=== PATIENT | male | born 1945 | race Caucasian/White ===

== ENCOUNTER 2020-03-12 08:46 | Emergency (ER) | payer OTHER, MEDICARE, SELFPAY ==
[2020-03-12 09:02] VITALS: BP 195/93; PULSE 72; RESP 20; TEMP 36.2; O2SAT 95; BMI 36.6
--- NOTE | 2020-03-12 09:28 | XRR_ITS ---
PROCEDURE INFORMATION: Exam: XR Right Foot Complete Exam date and time: 03/12/2020 9:29 AM Age: 74 years old Clinical indication: Pain; Foot; Right; Additional info: Toe infection TECHNIQUE: Imaging protocol: XR Right foot. Views: 3 or more views. COMPARISON: No relevant prior studies available. FINDINGS: Bones/joints: No evidence of fracture or aggressive osseous lesion. Normal alignment. Soft tissues: Apparent diffuse soft tissue swelling of the 3rd toe. XR/XR foot RT min 3V* [id number] IMPRESSION: Apparent soft tissue swelling of the 3rd toe. No radiographic evidence of osteomyelitis.
[2020-03-12 10:11] VITALS: BP 149/83; PULSE 60; RESP 17; O2SAT 96
[2020-03-12 10:18] LABS: Basophils % 0.7 %; Eosinophils # 0.1 10^3/uL (0.0-0.8); Eosinophils % 1.5 %; Hemoglobin 13.2 g/dL (11.7-16.6); Lymphocytes # 0.6 10^3/uL (0.8-4.8); Lymphocytes % 11.5 %; Mean Corpuscular HGB Conc 33.8 g/dL (30.0-36.0); Mean Corpuscular Hemoglobin 29.1 pg (28.0-34.0); Mean Corpuscular Volume 85.9 fL (80-94); Mean Platelet Volume 9.4 fL (7.4-10.4); Monocytes # 0.5 10^3/uL (0.2-0.9); Monocytes % 9.9 %; Neutrophils # 4.09 10^3/uL (1.8-7.7); Neutrophils % 76.2 %; Nucleated Red Blood Cells % 0 %; Platelet Count 185 10^3/cmm (130-400); Red Blood Count 4.54 10^6/uL (4.1-5.3); Red Cell Distribution Width 12.7 % (12.1-15.1); White Blood Count 5.4 10^3/uL (4.0-10.0)
[2020-03-12 10:37] LABS: Alanine Aminotransferase 18 U/L (0-41); Albumin Level 4.2 g/dL (3.5-5.2); Alkaline Phosphatase 88 IU/L (40-130); Anion Gap 14.4 (5-19); Aspartate Amino Transferase 26 U/L (0-40); Blood Urea Nitrogen 14 mg/dL (8-23); Calcium 9.4 mg/dL (8.5-10.5); Carbon Dioxide 28 mmol/L (22-29); Chloride 99 mmol/L (98-107); Creatinine Clr Calc Pharmacy 112.7997; Glucose 215 mg/dL (65-115); Osmolality Calculated 293 mOsm/kg (285-295); Potassium 3.4 mmol/L (3.5-5.1); Sodium 138 mmol/L (136-145); Total Bilirubin 0.6 mg/dL (0.15-1.2); Total Protein 7.2 g/dL (6.6-8.7)
[2020-03-12 11:04] LABS: C Reactive Protein 5.7 mg/L (0.0-4.9)
--- NOTE | 2020-03-12 11:10 | PC.NURSE ---
REPORT RECEIVED FROM [facility].
[2020-03-12] MEDS: clindamycin 150 mg Capsule 300 MG PO (12:33)
[2020-03-12 12:45] VITALS: BP 163/88; PULSE 60; RESP 16; O2SAT 94
--- NOTE | 2020-03-14 12:16 | DCPLANNER ---
home health manager had message to schedule a follow up appointment for patient with Wound Care. home health manager called the Wound Care clinic, spoke with Noemi, a follow up appointment is scheduled for Saturday, March 16, 2020 at 2:00 with SARAH Diez. home health manager called patient and gave patient appointment information, patient stated that he would attend the appointment.
--- NOTE | 2020-03-14 13:08 | W.ED.WOUNDLC ---
HPI - Wound/Laceration General: Chief Complaint: Wound/Laceration Stated Complaint: RED TOE WITH WOUND/DIABETIC Time Seen by Provider: 03/12/20 09:04 History of Present Illness: HPI narrative: This patient is a 74-year-old male who presents today with toe pain and swelling. He noted a sore on the bottom of his toe just a day or 2 ago and now the whole toe is red and swollen. He feels okay otherwise he has not had a fever. He is never had any diabetic foot ulcers in the past. Onset (ago): day(s) (1) Associated symptoms: Denies chills, fever(s), nausea or vomiting Review of Systems General: Reports: 10 or more systems reviewed and unremarkable except in HPI and below Const: Denies: fever(s), chills, fatigue or malaise Eyes: Denies: change in vision ENMT: Denies: odynophagia Card: Denies: chest pain or swelling of feet/ankles Resp: Denies: dyspnea, productive cough or non-productive cough GI: Denies: abdominal pain, nausea or vomiting : Denies: flank pain Musc: Denies: neck pain or back pain Skin/Breast: Reports: skin pain, skin swelling and sores; Denies: rash Neuro: Denies: headache(s), numbness in extremities or weakness in extremities [place]/Lymph: Denies: easy bruising or easy bleeding Physical Exam Const: COMMON NORMALS: no acute distress, patient oriented x3, no limitations and alert GENERAL APPEARANCE: cooperative and comfortable HENMT: HEAD & SCALP: normal to inspection FACE & SINUS: normal facial exam Eye: GENERAL EYE: appearance normal, both eyes and all related structures Neck/C-Spine: COMMON NORMALS: supple, no meningeal signs and no JVD Chest: COMMONS NORMALS: normal inspection of the chest Resp: COMMON NORMALS: normal respiratory effort, No use of accessory muscles and clear to auscultation bilaterally AUSCULTATION: clear to auscultation bilaterally Cardio: COMMON NORMALS: no JVD, regular rate, regular rhythm and No murmurs present (Cardio) RATE: regular rate RHYTHM: regular rhythm GI: COMMON NORMALS: Normal to inspection, nondistended, normoactive bowel sounds present, Soft to palpation and non-tender INSPECTION: Yes normal to inspection AUSCULTATION: Yes normoactive bowel sounds PALPATION: Yes Soft to palpation Back/Pelvis: COMMON NORMALS: thoracic and lumbar spine normal to inspection Extremity: GENERAL: Yes normal exam except as noted RIGHT LOWER EXTREMITY: Yes foot & digits (Toe with a sore on the bottom and the entire toe is hot and red and swollen. Tender to palpation.) Neuro: COMMON NORMALS: patient oriented x3, moves all extremities, no focal motor deficits and no sensory deficits noted SENSORIUM/ORIENTATION: Yes alert MENINGEAL SIGNS: Yes no meningeal signs Psych: COMMON NORMALS: mental status grossly normal, cooperative and normal affect Skin: COMMON NORMALS: no rashes or lesions noted and turgor normal GENERAL SKIN EXAM: no rashes or lesions noted and turgor normal Course ED course: Labs are not significantly abnormal. We discussed the importance of sugar control. We discussed the option of admission. He would like to go home and I think that is reasonable as he has not even tried outpatient therapy yet. I put him on oral dose of clindamycin, gave follow-up with the wound clinic and he will return if he is worsening in any way. Vital Signs: Vital signs: Vital Signs Temperature 97.2 F L 03/12/20 09:02 Pulse Rate 60 03/12/20 12:45 Respiratory Rate 16 03/12/20 12:45 Blood Pressure 163/88 03/12/20 12:45 Pulse Oximetry 94 03/12/20 12:45 MDM - Wound/Laceration Lab Data: Labs: Lab Results 03/12/20 03/12/20 Range/Units 10:00 10:00 WBC 5.4 (4.0-10.0) 10^3/ uL RBC 4.54 (4.1-5.3) 10^6/u L Hgb 13.2 (11.7-16.6) g/dL Hct 39.0 L (42.0-52.0) % MCV 85.9 (80-94) fL MCH 29.1 (28.0-34.0) pg MCHC 33.8 (30.0-36.0) g/dL RDW 12.7 (12.1-15.1) % Plt Count 185 (130-400) 10^3/c mm MPV 9.4 (7.4-10.4) fL Neut % (Auto) 76.2 % Lymph % (Auto) 11.5 % [place] % (Auto) 9.9 % Eos % (Auto) 1.5 % Baso % (Auto) 0.7 % Neut # (Auto) 4.09 (1.8-7.7) 10^3/u L Lymph # (Auto) 0.6 L (0.8-4.8) 10^3/u L [place] # (Auto) 0.5 (0.2-0.9) 10^3/u L Eos # (Auto) 0.1 (0.0-0.8) 10^3/u L Baso # (Auto) 0.0 (0.0-0.1) 10^3/u L Nucleated RBC % (a uto) 0 % Nucleated RBCs # 0.0 /100WBC Sodium 138 (136-145) mmol/L Potassium 3.4 L (3.5-5.1) mmol/L Chloride 99 (98-107) mmol/L Carbon Dioxide 28 (22-29) mmol/L Anion Gap 14.4 (5-19) BUN 14 (8-23) mg/dL Creatinine 0.7 (0.7-1.2) mg/dL GFR Calculation Not Reportable Glucose 215 H (65-115) mg/dL Calculated Osmolal ity 293 (285-295) mOsm/k g Calcium 9.4 (8.5-10.5) mg/dL Total Bilirubin 0.6 (0.15-1.2) mg/dL AST 26 (0-40) U/L ALT 18 (0-41) U/L Alkaline Phosphata se 88 (40-130) IU/L C-Reactive Protein 5.7 H (0.0-4.9) mg/L Total Protein 7.2 (6.6-8.7) g/dL Albumin 4.2 (3.5-5.2) g/dL Globulin 3.0 (1.3-4.6) g/dL Discharge Plan Discharge Patient Disposition: Home Clinical Impression: Cellulitis of toe Qualifiers: Laterality: right Qualified Code(s): L03.031 - Cellulitis of right toe Diabetic ulcer of toe Qualifiers: Diabetes mellitus type: type 2 Laterality: right Non-pressure ulcer stage: unspecified non-pressure ulcer stage Qualified Code(s): E11.621 - Type 2 diabetes mellitus with foot ulcer Condition: Stable Prescriptions: New clindamycin HCl 150 mg capsule 300 mg PO Q8H 10 Days Qty: 120 RF: 0 No Action Multiple Vitamins Tablet 1 tab PO DAILY RF: 0 atorvastatin 20 mg Tablet 20 mg PO QPM RF: 0 ketoconazole 2 % Shampoo See Rx Instructions .ROUTE .COMPLEX RF: 0 Mobic 15 mg Tablet 15 mg PO DAILY PRN (Reason: Pain) RF: 0 glipizide 10 mg Tablet 10 mg PO BID RF: 0 potassium chloride 10 mEq Tablet Extended Release 10 meq PO DAILY RF: 0 chlorthalidone 25 mg Tablet 25 mg PO DAILY RF: 0 aspirin 81 mg Tablet,Delayed Release (Dr/Ec) 81 mg PO DAILY RF: 0 triamcinolone acetonide 0.1 % Cream 1 applic TOPICAL PRN RF: 0 carvedilol 3.125 mg Tablet 3.125 mg PO BID RF: 0 trazodone 100 mg Tablet 100 mg PO BEDTIME PRN (Reason: Sleep) RF: 0 Norvasc 10 mg Tablet 10 mg PO DAILY RF: 0 metformin 1,000 mg Tablet See Rx Instructions .ROUTE .COMPLEX RF: 0 gabapentin 300 mg Capsule 600 mg PO TID RF: 0 magnesium citrate Solution See Rx Instructions .ROUTE .COMPLEX RF: 0 losartan 100 mg Tablet 100 mg PO DAILY RF: 0 fiber Powder See Rx Instructions .ROUTE .COMPLEX RF: 0 Fish Oil 1,000 mg (120 mg-180 mg) Capsule 1 cap PO DAILY RF: 0 alogliptin 25 mg Tablet 25 mg PO DAILY RF: 0 docusate sodium See Rx Instructions .ROUTE .COMPLEX RF: 0 Discharge Orders: Discharge Order (Routine); Ordered 03/12/20 Ordered By: Penelope Miguel Referrals: WOUND CARE CLINIC, [Staff Physician] - 1-3 days Discharge Diet: Usual diet Discharge Activity: Resume usual activity Patient Instructions: Cellulitis (ED) Activity Restrictions/Additional Instructions: Take the antibiotics as prescribed. Control your blood sugar well as high blood sugars contribute to difficult to treat infections. Make sure to take your medications regularly and to check your blood sugars. Also watch your diet. Follow-up with the wound care clinic on Saturday or Saturday. Discharge Date/Time: 03/12/20 12:47 Coding Level of Care Code ED Camp Dining Room Attendant for Ellen Logan
--- NOTE | 2020-04-04 09:36 | DCPLANNER ---
Patient had a follow up appointment scheduled for 03.16.20 with Wound Care - patient did not attend appointment.
== END 2020-03-12 12:47 | disposition home or self-care (01) ==
PROVIDERS: Emergency Provider Emergency Medicine
DX: L03.031 Cellulitis of right toe (principal); E11.621 Type 2 diabetes mellitus with foot ulcer; Z79.82 Long term (current) use of aspirin; Z79.84 Long term (current) use of oral hypoglycemic drugs
CPT/HCPCS: 12345; 36415; 73630; 80053; 85025; 86140; 99283

== ENCOUNTER → 2020-07-12 13:56 | Outpatient (BNVA) | payer OTHER, SELFPAY | PROVIDERS: Visit Provider Orthopaedic Surgery | DX: M54.5 Low back pain (principal) | CPT/HCPCS: 72114 ==

== ENCOUNTER → 2020-08-04 | Day surgery (SDC) | payer MEDICARE, OTHER, SELFPAY | PROVIDERS: Visit Provider Orthopaedic Surgery | DX: M48.062 Spinal stenosis, lumbar region with neurogenic claudication (principal); Z01.818 Encounter for other preprocedural examination | CPT/HCPCS: 93005 ==

== ENCOUNTER 2020-08-10 10:44 | Inpatient (IN) | payer MEDICARE, OTHER, SELFPAY ==
[2020-08-04 09:48] VITALS: BMI 37.3
--- NOTE | 2020-08-04 10:13 | ECG_ITS ---
[facility] Test Date: 2020-08-04 Pat Name: Morales Pendleton Department: Room: Gender: Male Emergency Room Technician: : 1945 Requested By: Pee Cannon Order Number: [id number] Benny MD: Caesar Grover M.D. Measurements Intervals [place] Rate: 54 P: 41 DE: 221 QRS: 9 QRSD: 122 T: 42 QT: 443 QTc: 423 Interpretive Statements SINUS BRADYCARDIA WITH FIRST DEGREE AV BLOCK MODERATE INTRAVENTRICULAR CONDUCTION DELAY [110+ ms QRS DURATION] No previous ECG available for comparison Electronically Signed On 08-04-2020 16:06:18 HUMAN RESOURCES OFFICER by Caesar Grover M.D. [id number]
--- NOTE | 2020-08-04 16:57 | ANES.PREANE2 ---
Pre-Anesthetic Assessment Pre-Anesthetic Assessment: Height/Weight: Height 1.83 m Weight 124.738 kg Preop Diagnosis: lumbar stenosis Proposed Procedure: Operation Date: 08/10/20 07:00 Proposed Procedures p PLIF L3/4 L4/5 04825, 28123, 02924, 39520, 04951, 39789 M48.062(Not Applicable) - Sawyer Rock, DO Was Beta Keo taken within 24 hours: Yes Social: Social History: No alcohol and No tobacco Exam: Pre-Anes Outpt Exam: alert, oriented x 3, clear to auscultation bilaterally and regular rate & rhythm Airway: Submandibular: WNL Cervical ROM: WNL MP: 2 Additional comments: Poor dentition, large yeh CV/HEM: CV/HEM: CAD and HTN Metabolic: Metabolic: DM Musc/skel: Musc/skel: Lower Back Pain and OA/DJD Anesthetic Plan: ASA status: 3 Anesthesia: General Risk of > 500 ml blood loss (7ml/kg in children): No PFSH Anesthesia PFSH: Social History (Updated 07/12/20 @ 14:14 by Fiona Rodriguez LPN) Smoking and tobacco status: never smoked Alcohol intake: never Data Anesthesia Cardiac Studies: No Data to Display
[2020-08-05 18:43] LABS: Coronavirus Test Green County Not Detected
[2020-08-10] VITALS (21 sets, daily range): BP systolic 133–179; BP diastolic 67–98; PULSE 68–95; RESP 15–24; TEMP 36.3–37.2; O2SAT 90–96
--- NOTE | 2020-08-10 | XR_ITS ---
WS: [id number] C-ARM RADIOGRAPHS LUMBAR SPINE; 4 IMAGES HISTORY: PLIF L3/L4 L4/L5 COMPARISON: MRI 05/03/2020. Status post posterior lumbar fusion extending from L3 to L5. Interbody spacers at L3-4 and L4-5. XR/XR lumbar spine 2-3V* [id number] IMPRESSION: Intraoperative imaging during posterior lumbar fusion.
--- NOTE | 2020-08-10 | SCC_ITS ---
Procedure Done: 1. L4/5 Interbody fusion with posterolateral fusion 2. L3/4 Interbody fusion with posterolateral fusion 3. Instrumentation L3-L5 4. Cage at L4/5 5. Cage L3/4 6. Laminectomy L4 for decomprsion of nerve 7. Lamincetomy of L3 for decomprsion of nerve 8. use of autograft from same incision 9. allograft 10. Bone marrow aspirate from iliac crest from separate incision 11. Spondylolisthesis reduction L4/5 118.7 seconds of fluoroscopic guidance, for a cumulative dose of 121.32 mGy, was provided to Dr. Rock by the radiology department. C-arm images of the lumbar spine were saved for the patient's permanent record. [facility]
[2020-08-10] MEDS: sodium chloride 0.9% 1,000 ML 30 ML IV (06:39)
[2020-08-10 06:41] LABS: Glucose Point of Care 210 mg/dL (70-110)
--- NOTE | 2020-08-10 06:54 | W.PM.OPSUD ---
Surgery/Procedure H&P Update DATE OF PROCEDURE: August 10, 2020 DATE H&P PERFORMED: 07/12/20 H&P UPDATE INFORMATION: I have reviewed H&P completed within last 30 days, I have examined patient prior to procedure and No changes to prior documentation PREOP DIAGNOSIS: lumbar stenosis PLANNED PROCEDURE: Operation Date: 08/10/20 07:00 Proposed Procedures p PLIF L3/4 L4/5 01185, 45048, 68873, 81926, 57828, 58010 M48.062(Not Applicable) - Sawyer Rock DO
[2020-08-10] MEDS: insulin regular-human 100 units/1 mL 10 UNIT IVP (06:59)
[2020-08-10] MEDS: heparin, porcine 1,000 unit/mL INJ 10 mL 10000 UNIT XX (08:01)
--- NOTE | 2020-08-10 08:10 | P.ANESUD_ITS ---
Pre-Anesthetic Update Pre-Anesthetic Assessment: Date of Surgery/Procedure: 08/10/20 Preop Edna gnosis: lumbar stenosis Proposed Procedure: Operation Date: 08/10/20 07:00 Proposed Procedures p PLIF L3/4 L4/5 86276, 31792, 34862, 40080, 33256, 11500 M48.062(Not Applicable) - Sawyer Rock, DO Any changes to Pre-Anesthetic Assessment?: No Last Intake: Intake Last Liquid Date 08/09/20 Last Liquid Time 18:00 Last Solid Date 08/09/20 Last Solid Time 18:00 Labs Last 48hrs: Laboratory Results - last 48 hr 08/10/20 06:37 POC Glucose 210 H Vitals: Temperature 98.9 F 08/10/20 06:19 Temperature Source Temporal Artery S can 08/10/20 06:19 Pulse Rate 78 08/10/20 06:19 Pulse Rhythm 08/10/20 06:19 Pulse Strength 3+ Normal 08/10/20 06:19 Respiratory Rate 18 08/10/20 06:19 Blood Pressure 177/88 08/10/20 06:19 Blood Pressure Alexia n 117 08/10/20 06:19 Pulse Oximetry 94 08/10/20 06:19 Oxygen Delivery Me thod 08/10/20 06:19 Exam: Pre-Anes Outpt Exam: alert, oriented x 3, clear to auscultation bilaterally and regular rate & rhythm Cardiac Studies: No Data to Display
[2020-08-10] MEDS: vancomycin 1,000 MG SDV 1000 MG XX (10:45)
--- NOTE | 2020-08-10 11:31 | SUR.PHASEI ---
PT AWAKES AND ORAL AIRWAY OUT PT DENIES PAIN AND NAUSEA, GOOD RESP EFFORT PT SX WITH YANKER AND ENCOURAGED TO COUGH AND DEEP BREATH OCC. SATS 92% ON 8LMASK PT ABLE TO MOVE BILAT FEET TO COMMAND,
--- NOTE | 2020-08-10 11:38 | P.OP_ITS ---
Operative Report Date of procedure: August 10, 2020 Pre-op Diagnosis: lumbar stenosis L3/4, L4/5 Post-op diagnosis: same Procedure Done: 1. L4/5 Interbody fusion with posterolateral fusion 2. L3/4 Interbody fusion with posterolateral fusion 3. Instrumentation L3-L5 4. Cage at L4/5 5. Cage L3/4 6. Laminectomy L4 for decomprsion of nerve 7. Lamincetomy of L3 for decomprsion of nerve 8. use of autograft from same incision 9. allograft 10. Bone marrow aspirate from iliac crest from separate incision 11. Spondylolisthesis reduction L4/5 Procedure: 1. L4/5 Interbody fusion with posterolateral fusion 2. L3/4 Interbody fusion with posterolateral fusion 3. Instrumentation L3-L5 4. Cage at L4/5 5. Cage L3/4 6. Laminectomy L4 for decomprsion of nerve 7. Lamincetomy of L3 for decomprsion of nerve 8. use of autograft from same incision 9. allograft 10. Bone marrow aspirate from iliac crest from separate incision 11. L4/5 spondylolisthesis reduction Patient is brought to the operative suite. After undergoing anesthesia, the patient had neuro monitoring attached. Patient was then placed in the prone position on the Arnaldo table. All areas of impingement were well-padded. P atient was then prepped and draped in the normal sterile fashion. Skin incision was then made over the L3-L5 space. Subperiosteal dissection was made out to the transverse processes of L3 and L5. Once the exposure was complete attention was then brought to placing the pedicle screws. Prior to placing the pedicle screws the [place] bone marrow aspirate kit was used to aspirate bone marrow aspirate. This was done by using the sharp probe to open up the bone. This was done by making an incision through the fascia of the iliac crest. Aspiration was performed and then the blunt probe was then used to dissect down to through the bone tunnel. An aspirating well drawn back a millimeter approximately 20 cc of bone marrow aspirate was used. Admixed with the allograft and autograft bone that will be used. The technique for placing the pedicle screws was to use a drill followed by the gearshift probe. Followed by the ball probe to feel the superior inferior medial lateral ponce of the pedicles. Then placement of the screws. Was done at each pedicle. Screws were placed at L3 bilaterally and L4 and L5 Bilateraly. Microscope was brought in. Next attention was brought to performing the laminectomy of L3. This was done using the high-speed bur, Kerrisons and curettes. Once the lamina was removed and then attention was brought to performing a partial facetectomy on the contr alateral side. This was done again using the high-speed bur curettes and Kerrisons. The ligamentum flavum was taken down bilaterally from L3 to L4. Attention was then brought to the facet on the ipsilateral side. The facet was taken down. The L4 nerve was decompressed as it passed around the L4 pedicle. The laminectomy was done for purposes of decompressing the nerve as well as placement of the cage. The L3 nerve was identified as it traversed through the L3/4 foramen. The thecal sac was identified and retracted. The L3/4 disc space was identified. Using a knife the disc base was opened. And then sequential carmen were placed. The first shaver was a 6 and the last shaver was a 8. Using a pituitary and down going curette the endplates were scraped and disc material was removed from the space. Once adequate decompression of the disc space was felt to be had. Osteoamp sponge was packed into the anterior aspect of the disc spacee. Then a size 8 cage from Sathish was placed after packing osteoamp into the cage. While placing the cage the thecal sac and L4 nerve was protected. C arm was used to ensure that the cages placed in the appropriate position. Next attention was brought to performing the laminectomy of L4. This was done using the high-speed bur, Kerrisons and curettes. Once the lamina was removed and then attention was brought to performing a partial facetectomy on the contralateral side. This was done again using the high-speed bur curettes and Kerrisons. The ligamentum flavum was taken down bilaterally from L4 to L5. Attention was then brought to the facet on the ipsilateral side. The facet was taken down. The L5 nerve was decompressed as it passed around the L5 pedicle. The laminectomy was done for purposes of decompressing the nerve as well as placement of the cage. The L3 nerve was identified as it traversed through the L3/4 foramen. The thecal sac was identified and retracted. The L4/5 disc space was identified. Using a knife the disc base was opened. And then sequential carmen were placed. The first shaver was a 6 and the last shaver was a 8. Using a pituitary and down going curette the endplates were scraped and disc material was removed from the space. Once adequate decompression of the disc space was felt to be had. Osteoamp sponge was packed into the anterior aspect of the disc spacee. Then a size 8 cage from Sathish was placed after packing osteoamp into the cage. While placing the cage the thecal sac and L5 nerve was protected. C arm was used to ensure that the cages placed in the appropriate position. Attention was then brought to attaching the rods to the screws placed in the L3- 5 bilaterally. Caps were torqued into position. Locking the construct in place. The L4/5 Spondylolisthisis was reduced using the tower reduction tool. Wound was copiously irrigated and then attention was brought to decorticating the facets and transverse processes laterally. Bone that was taken down from the la jermaine was used along with osteoamp fibers and sponges were packed into the lateral gutters along the facet joints. This was done bilaterally. Wound was then closed in a layered fashion starting with the thoracolumbar fascia. 0-stratafix was used the sub cutaneous tissue was closed with 2-0 stratafix and skin with 3-0 nylon. a steril dressing was applied. Patient was then placed in the supine position. The endotracheal tube was removed and patient was transferred to the PACU in stable condition.
[2020-08-10] MEDS: morphine 4 mg/mL SDV 1 mL 2 MG IVP (11:47)
[2020-08-10] MEDS: metformin 500 mg Tablet PO ×2 (13:07→17:19)
[2020-08-10] MEDS: lactated ringers 1,000 ML 90 ML IV (13:07)
[2020-08-10] MEDS: HYDROcodone-acetaminophen 5-325 mg Tablet PO ×3 (13:51→22:17)
--- NOTE | 2020-08-10 14:01 | PC.NURSE ---
Pt received from PACU, vs stable. swelling noted to bilateral eyes and slight numbness/tingling and ring finger and pinky finger to R hand due to positioning in OR. Pt has hospital bed, walker, cane and cpap at home for medical equipment. dressing to lower back c/d/i, abd binder in place at this time. pt resting in bed at this time call light within reach.
[2020-08-10] MEDS: gabapentin 300 mg Capsule 600 MG PO ×2 (14:48→21:17)
--- NOTE | 2020-08-10 16:08 | P.CONIM_ITS ---
Providers/Reason For Consult Consulting Physican/Specialty*: Shaggy Garza hospitalist Reason for Consult*: Medical management Attending Physician: Sawyer Rock DO History of Present Illness History of Present Illness Morales Pendleton is a 74 year old male with lumbar stenosis who underwent L3/4 and L4/5 fusion with instrumentation, cage and laminectomy. He has been having low back pain for quite some time. Review of Systems General: Reports: 10 or more systems reviewed and unremarkable except in HPI and below Const: Denies: fever(s) or chills Eyes: Denies: change in vision ENMT: Denies: throat pain Card: Denies: chest pain Resp: Denies: dyspnea GI: Denies: abdominal pain : Denies: flank pain Musc: Reports: back pain Skin/Breast: Denies: rash Neuro: Denies: headache(s) Psych: Denies: anxiety Endo: Denies: polyuria [place]/Lymph: Denies: easy bruising All/Imm: Denies: urticaria Meds/Allergies Home Medications and Allergies Home Medications Medication Instructions Recorded Confirmed Last Taken Type alogliptin 25 mg PO DAILY 03/12/20 08/10/20 08/09/20 History amlodipine [Norvasc] 10 mg PO DAILY 03/12/20 08/04/20 08/10/20 04:45 History aspirin 81 mg PO DAILY 03/12/20 08/04/20 08/05/20 History atorvastatin 20 mg PO QPM 03/12/20 08/04/20 08/09/20 History chlorthalidone 25 mg PO DAILY 03/12/20 08/04/20 08/10/20 04:45 History gabapentin 600 mg PO TID 03/12/20 08/04/20 08/09/20 History glipizide 10 mg PO BID 03/12/20 08/04/20 08/09/20 18:00 History ketoconazole See Rx Instructions .ROUTE .COMPLEX 03/12/20 08/04/20 08/09/20 History losartan 100 mg PO DAILY 03/12/20 08/04/20 08/09/20 History meloxicam [Mobic] 15 mg PO DAILY PRN 03/12/20 08/04/20 08/05/20 History metformin See Rx Instructions .ROUTE .COMPLEX 03/12/20 08/04/20 08/09/20 18:00 History multivitamin [Multiple Vitamins] 1 tab PO DAILY 03/12/20 08/04/20 08/09/20 History omega 0-tqz-xlx-fish oil [Fish Oil] 1 cap PO DAILY 03/12/20 08/04/20 08/05/20 History potassium chloride 10 meq PO DAILY 03/12/20 08/04/20 08/09/20 History trazodone 100 mg PO BEDTIME PRN 03/12/20 08/04/20 08/09/20 History triamcinolone acetonide 1 applic TOPICAL PRN 03/12/20 08/10/20 08/07/20 History carvedilol 6.25 mg PO BID 08/04/20 08/04/20 08/10/20 04:45 History Allergies Allergy/AdvReac Type Severity Reaction Status Date / Time No Known Allergies Allergy Verified 08/04/20 09:36 Current Medications Current Medications Generic Name Dose Route Start Last Admin Trade Name Freq PRN Reason Stop Dose Admin Hydrocodone Bitart/Acetaminophen 1 - 2 tab 08/10/20 11:28 08/10/20 13:51 Hydrocodone-Acetaminophen 5-325 Mg Tablet PO 2 tab Q4H PRN Administration MODERATE TO SEVERE PAIN Gabapentin 600 mg 08/10/20 15:00 08/10/20 14:48 Gabapentin 300 Mg Capsule PO 600 mg TID BUNNY Administration Lactated Ringer's 1,000 mls @ 90 mls/hr 08/10/20 11:30 08/10/20 13:07 Lactated Ringers IV 90 mls/hr .Q11H7M BUNNY Administration Cefazolin Sodium/Dextrose 2 gm in 50 mls @ 100 mls/hr 08/10/20 15:00 08/10/20 15:41 Kefzol IV 08/11/20 07:29 Infused Q8H BUNNY Infusion Protocol Metformin HCl 0 mg 08/10/20 12:15 08/10/20 13:07 Metformin 500 Mg Tablet PO 500 mg TIDWM BUNNY Administration PFSH Acute PFSH: Medical History (Updated 08/10/20 @ 16:24 by Shaggy Garza MD) Chronic back pain Diabetes mellitus Hyperlipidemia Hypertension Peripheral neuropathy Surgical History (Updated 08/10/20 @ 16:20 by Shaggy Garza MD) History of surgical removal of pilonidal cyst Hx of appendectomy Hx of melanoma excision Family History (Updated 08/10/20 @ 16:20 by Shaggy Garza MD) Other Cancer Social History (Updated 08/10/20 @ 16:20 by Shaggy Garza MD) Smoking and tobacco status: never smoked Alcohol intake: former Vitals/I&O/Wt Last Vital Signs Temp 98.0 F 08/10/20 13:30 Pulse 68 08/10/20 15:00 Resp 18 08/10/20 15:00 BP 167/77 08/10/20 13:30 Pulse Ox 94 08/10/20 15:00 08/10/20 08/10/20 08/10/20 06:59 14:59 22:59 Intake Total 1050 / 1050 50 / 1100 Output Total 350 / 350 Balance 700 / 700 50 / 750 Physical Exam Narrative: EXAM NARRATIVE: General exam is a white male in no apparent distress HEENT: Atraumatic normocephalic. Pupils equally round. Oropharynx clear. Neck is supple no lymphadenopathy or thyromegaly Cardiovascular regular in rhythm without murmur. No S3 or S4 Lungs are clear no wheezing or crackles Abdomen is soft nontender with positive bowel sounds. Binder is noted Back demonstrated dressing deferred Extremities no cyanosis clubbing or edema, cap refill brisk. No foot drop. Neurologic: No obvious focal deficits Skin no rash Urinary Catheter Management^: Teague: Cath Placed During This Visit: yes, but has since been removed by the nurse Urinary Catheter Date of Insertion: 08/10/20 Urinary Catheter Time of Insertion: 07:30 Date Urinary Catheter Removed: 08/10/20 Time Urinary Catheter Discontinued: 11:12 Data Other Data: Other data: CBC and CMP from February was reviewed. EKG from August 04 demonstrated sinus bradycardia rhythm, normal axis, mild intraventricular conduction delay. A&P Assessment and plan (1) Chronic back pain: He is directly postoperative from L3-L5 fusion and instrumentation As he is getting ketorolac as needed we will discontinue meloxicam Status: Acute (2) Diabetes mellitus: Discontinue oral sulfonylurea Changed to consistent carb diet Sliding scale insulin May continue Metformin, ,liptin Status: Acute (3) Hyperlipidemia: Continue home meds Status: Acute (4) Hypertension: Continue home meds Status: Acute (5) Peripheral neuropathy: Continue home meds, Neurontin Status: Acute Additional A&P Information Thank you for this consult Lovenox for DVT prophylaxis Consult Attestations Medical Necessity Statement: As per primary Time Spent in Patient Care: Greater than 35 minutes Coding Level of Care Code Acute Film Reproducer for Elverg Fwd Diagnoses Chronic back pain M54.9; G89.29 Diabetes mellitus E11.9 Hyperlipidemia E78.5 Hypertension I10 Peripheral neuropathy G62.9
[2020-08-10] MEDS: atorvastatin 40 mg Tablet 20 MG PO (17:19)
[2020-08-10] MEDS: docusate sodium 100 mg Capsule PO (17:19)
[2020-08-10] MEDS: carvedilol 6.25 mg Tablet PO (17:19)
[2020-08-10 17:53] LABS: Glucose Point of Care 479 mg/dL (70-110)
--- NOTE | 2020-08-10 17:54 | PC.NURSE ---
INSULIN PT REQUESTS TO HOLD OFF ON INSULIN DUE TO PT HAVING EATEN BEFORE ACCU CHECK
--- NOTE | 2020-08-10 19:58 | ANE.PACU2 ---
Inpatient post-anesthesia follow up: Airway intact: Yes Vital signs: Temperature 98 F Pulse Rate 77 Respiratory Rate 18 Blood Pressure 160/71 Pulse Oximetry 90 Oxygen Delivery Me thod Nasal Cannula Oxygen Flow Rate 3 Fraction of Inspir ed Oxygen Hydration adequate: Yes Nausea and vomiting: No Pain level: 4 Mental status: Baseline
[2020-08-10] MEDS: trazodone 100 mg Tablet PO (21:17)
[2020-08-10 21:35] LABS: Glucose Point of Care 340 mg/dL (70-110)
[2020-08-10 23:54] LABS: Glucose Point of Care 262 mg/dL (70-110)
[2020-08-11] VITALS (9 sets, daily range): BP systolic 122–164; BP diastolic 57–74; PULSE 69–91; RESP 17–18; TEMP 36.6–37.4; O2SAT 90–96
[2020-08-11] MEDS: lactated ringers 1,000 ML 90 ML IV (01:20)
[2020-08-11 03:03] LABS: Alanine Aminotransferase 19 U/L (0-41); Albumin Level 3.7 g/dL (3.5-5.2); Alkaline Phosphatase 89 IU/L (40-130); Anion Gap 13.7 (5-19); Aspartate Amino Transferase 43 U/L (0-40); Blood Urea Nitrogen 21 mg/dL (8-23); Calcium 8.6 mg/dL (8.5-10.5); Carbon Dioxide 29 mmol/L (22-29); Chloride 98 mmol/L (98-107); Globulin 2.7 g/dL (1.3-4.6); Glucose 223 mg/dL (65-115); Osmolality Calculated 294 mOsm/kg (285-295); Potassium 3.7 mmol/L (3.5-5.1); Sodium 137 mmol/L (136-145); Total Bilirubin 0.5 mg/dL (0.15-1.2); Total Protein 6.4 g/dL (6.6-8.7)
[2020-08-11 03:09] LABS: Basophils % 0.3 %; Eosinophils % 0.2 %; Hematocrit 35.4 % (42.0-52.0); Hemoglobin 11.7 g/dL (11.7-16.6); Lymphocytes # 0.6 10^3/uL (0.8-4.8); Lymphocytes % 6.5 %; Mean Corpuscular HGB Conc 33.1 g/dL (30.0-36.0); Mean Corpuscular Hemoglobin 28.4 pg (28.0-34.0); Mean Corpuscular Volume 85.9 fL (80-94); Mean Platelet Volume 10.1 fL (7.4-10.4); Monocytes % 11.4 %; Neutrophils # 7.18 10^3/uL (1.8-7.7); Neutrophils % 81.1 %; Nucleated Red Blood Cells % 0 %; Platelet Count 191 10^3/cmm (130-400); Red Blood Count 4.12 10^6/uL (4.1-5.3); Red Cell Distribution Width 13.2 % (12.1-15.1); White Blood Count 8.9 10^3/uL (4.0-10.0)
[2020-08-11] MEDS: enoxaparin 40 mg/0.4 mL Syringe SUBCUT (06:10)
[2020-08-11 06:49] LABS: Glucose Point of Care 304 mg/dL (70-110)
[2020-08-11] MEDS: HYDROcodone-acetaminophen 5-325 mg Tablet PO ×3 (07:58→20:44)
[2020-08-11] MEDS: carvedilol 6.25 mg Tablet PO ×2 (07:59→17:29)
[2020-08-11] MEDS: omega-3 fatty acids 1,000 mg Capsule 1000 MG PO ×2 (07:59→08:00)
[2020-08-11] MEDS: losartan 50 mg Tablet 100 MG PO (07:59)
[2020-08-11] MEDS: potassium chloride ER 10 mEq Tablet PO (07:59)
[2020-08-11] MEDS: amlodipine 10 mg Tablet PO (08:00)
[2020-08-11] MEDS: aspirin 81 mg EC Tablet PO (08:00)
[2020-08-11] MEDS: gabapentin 300 mg Capsule 600 MG PO ×3 (08:00→20:43)
[2020-08-11] MEDS: multivitamin therapeutic Tablet 1 TAB PO (08:00)
[2020-08-11] MEDS: docusate sodium 100 mg Capsule PO ×2 (08:01→17:29)
--- NOTE | 2020-08-11 08:06 | PC.NURSE ---
AM NOTE PT CONTINUES TO VOICE NUMBNESS IN HIS 4TH AND 5TH FINGER ON BOTH RIGHT AND LEFT HAND SINCE SURGERY - WILL MONITOR
--- NOTE | 2020-08-11 09:06 | P.PN_ITS ---
Subjective Subjective: Interval history: Patient is doing well. Sitting up. Back and legs feel better. Complaining of ulnar nerve numbness in the right arm. Vitals/I&O/Wt Last Vital Signs Temp 98.6 F 08/11/20 03:25 Pulse 90 08/11/20 03:40 Resp 18 08/11/20 03:25 BP 164/74 08/11/20 07:59 Pulse Ox 92 08/11/20 03:40 08/10/20 08/11/20 08/11/20 22:59 06:59 14:59 Intake Total 170 / 1220 1050 / 2270 120 / 120 Balance 170 / 870 1050 / 1920 120 / 120 Physical Exam Narrative: EXAM NARRATIVE: Slight drainage from the wound. 5-5 strength bilateral lower extremities sensation intact. Urinary Catheter Management^: Teague: Cath Placed During This Visit: yes, but has since been removed by the nurse Urinary Catheter Date of Insertion: 08/10/20 Urinary Catheter Time of Insertion: 07:30 Date Urinary Catheter Removed: 08/10/20 Time Urinary Catheter Discontinued: 11:12 Data : 08/11/20 02:09 08/11/20 02:09 A&P Additional A&P Information Postop day #1 L3-4 and L4-5 plif. Up with physical therapy today. Change dressing. Corset is for comfort. Patient does not have to wear it if he does not want to. Likely discharge home tomorrow. Attestations Medical Necessity Statement*: up with therapy Coding Level of Care Code Acute Quarter Folder for Ellen Logan
[2020-08-11] MEDS: chlorthalidone 25 mg Tablet PO (10:17)
[2020-08-11] MEDS: metformin 500 mg Tablet PO ×3 (10:17→17:34)
--- NOTE | 2020-08-11 11:11 | PM.PN ---
Documented by User: ALICIA Pineda STDCLAUS 08/11/20 11:26 Subjective Subjective: Interval history: Morales reports that he is doing well. He reports his back pain is getting better. Complains of ulnar nerve numbness in right arm. Working with physical therapy. States he can walk to bathroom by himself with a nurse monitoring. Medications: Reviewed: Yes Vitals/I&O/Wt Last Vital Signs Temp 99.3 F 08/11/20 08:00 Pulse 69 08/11/20 08:00 Resp 17 08/11/20 08:00 BP 124/57 08/11/20 08:00 Pulse Ox 96 08/11/20 08:00 08/10/20 08/11/20 08/11/20 22:59 06:59 14:59 Intake Total 170 / 1220 1050 / 2270 170 / 170 Balance 170 / 870 1050 / 1920 170 / 170 Physical Exam Narrative: EXAM NARRATIVE: General: white male in no apparent distress Cardiovascular: regular in rhythm without murmur Lungs: clear to auscultation bilaterally Abdomen: soft, nontender with positive bowel sounds Lower Extremities: 5/5 strength bilaterally Urinary Catheter Management^: Teague: Cath Placed During This Visit: yes, but has since been removed by the nurse Urinary Catheter Date of Insertion: 08/10/20 Urinary Catheter Time of Insertion: 07:30 Date Urinary Catheter Removed: 08/10/20 Time Urinary Catheter Discontinued: 11:12 Data : 08/11/20 02:09 08/11/20 02:09 Coding Level of Care Code Acute Cooperative Education Coordinator for g Fwd Diagnoses Chronic back pain M54.9; G89.29 Diabetes mellitus E11.9 Hyperlipidemia E78.5 Hypertension I10 Peripheral neuropathy G62.9 Documented by User: Shaggy Garza MD 08/11/20 12:15 Subjective Subjective: Interval history: Agree with above. I question the patient directly regarding these things as well with the same response. Medications: Reviewed: Yes Physical Exam Narrative: EXAM NARRATIVE: Exam as above. No additions. I examined the patient myself. Urinary Catheter Management^: Teague: Cath Placed During This Visit: no Data : 08/11/20 02:09 08/11/20 02:09 A&P Assessment and plan (1) Chronic back pain: Postoperative day #1 status post L3/5 fusion and instrumentation. Doing very well postoperatively. Status: Acute (2) Diabetes mellitus: Blood sugar slightly higher than I would like. Change to moderate sliding scale. Continue Metformin, liptin Status: Acute (3) Hyperlipidemia: Continue home medication Status: Acute (4) Hypertension: Continue home medication Status: Acute (5) Peripheral neuropathy: Continue home medication Status: Acute Additional A&P Information Thank you for this consult Lovenox for DVT prophylaxis Attestations Medical Necessity Statement*: As per primary Coding Level of Care Code Acute Cooperative Education Coordinator for Ellen Logan Diagnoses Chronic back pain M54.9; G89.29 Diabetes mellitus E11.9 Hyperlipidemia E78.5 Hypertension I10 Peripheral neuropathy G62.9
[2020-08-11 11:23] LABS: Glucose Point of Care 306 mg/dL (70-110)
[2020-08-11 17:18] LABS: Glucose Point of Care 199 mg/dL (70-110)
[2020-08-11] MEDS: atorvastatin 40 mg Tablet 20 MG PO (17:29)
[2020-08-11] MEDS: trazodone 100 mg Tablet PO (20:43)
[2020-08-11 21:17] LABS: Glucose Point of Care 241 mg/dL (70-110)
[2020-08-12] VITALS (16 sets, daily range): BP systolic 136–179; BP diastolic 61–88; PULSE 74–95; RESP 14–19; TEMP 36.6–37.8; O2SAT 85–94
[2020-08-12] MEDS: HYDROcodone-acetaminophen 5-325 mg Tablet PO ×3 (02:37→14:14)
[2020-08-12] MEDS: enoxaparin 40 mg/0.4 mL Syringe SUBCUT (05:03)
[2020-08-12] MEDS: amlodipine 10 mg Tablet PO (05:04)
[2020-08-12 07:02] LABS: Glucose Point of Care 264 mg/dL (70-110)
--- NOTE | 2020-08-12 08:06 | P.DS_ITS ---
Discharge Providers Date of Admission: 08/10/20 10:44 Date of Discharge: August 12, 2020 Attending Provider at Admission: Sawyer Rock DO Attending Provider at Discharge: Sawyer Rock DO Diagnoses at Discharge Discharge Diagnosis (1) Chronic back pain: Status: Acute (2) Diabetes mellitus: Status: Acute (3) Hyperlipidemia: Status: Acute (4) Hypertension: Status: Acute (5) Peripheral neuropathy: Status: Acute Reason for Visit Reason for Visit: PLIF L3/4 L4/5 28097, 09653, 97479, 83305, 36017, Hospital Course Hospital Course Patient was admitted to the hospital in 217 after having a L3-4 and L4-5 posterior lumbar interbody fusion procedure done. Patient tolerated the procedure well stay was uneventful work with physical therapy on 08/11/2020 and will be discharged home today. Of note he had an ulnar neuropathy which is slowly resolving. He still has numbness in his hand but feels like it has improved since postoperatively. He will be discharged today and we will see him in the clinic in 2 weeks. Physical Exam Narrative: EXAM NARRATIVE: Ulnar nerve neuropathy improving. Strength is 5-5 bilateral lower extremities. Dressing with no bloody discharge. Urinary Catheter Management^: Teague: Cath Placed During This Visit: yes, but has since been removed by the nurse Urinary Catheter Date of Insertion: 08/10/20 Urinary Catheter Time of Insertion: 07:30 Date Urinary Catheter Removed: 08/10/20 Time Urinary Catheter Discontinued: 11:12 Discharge Data Data Completed and Pending: Completed Studies During Hospitalization Category Date Time Status XR lumbar spine 2 -3V* 60814 Routine Exams 08/10/20 Completed Labs from last 24 hours 08/12/20 08/11/20 08/11/20 06:49 20:57 16:39 POC Glucose 264 H 241 H 199 H 08/11/20 11:19 POC Glucose 306 H Vitals: Last Vital Signs Temp 98.9 F 08/12/20 07:43 Pulse 81 08/12/20 07:43 Resp 17 08/12/20 07:43 BP 144/62 08/12/20 07:43 Pulse Ox 90 08/12/20 07:43 Discharge Plan Discharge Patient Disposition: Home Condition: Stable Prescriptions: New hydrocodone-acetaminophen 5-325 mg tablet 1 - 2 tab PO .Q4-6H Qty: 40 RF: 0 Continued multivitamin [Multiple Vitamins] Tablet 1 tab PO DAILY RF: 0 atorvastatin 20 mg Tablet 20 mg PO QPM RF: 0 ketoconazole 2 % Shampoo See Rx Instructions .ROUTE .COMPLEX RF: 0 meloxicam [Mobic] 15 mg Tablet 15 mg PO DAILY PRN (Reason: Pain) RF: 0 glipizide 10 mg Tablet 10 mg PO BID RF: 0 potassium chloride 10 mEq Tablet Extended Release 10 meq PO DAILY RF: 0 chlorthalidone 25 mg Tablet 25 mg PO DAILY RF: 0 aspirin 81 mg Tablet,Delayed Release (Dr/Ec) 81 mg PO DAILY RF: 0 triamcinolone acetonide 0.1 % Cream 1 applic TOPICAL PRN RF: 0 trazodone 100 mg Tablet 100 mg PO BEDTIME PRN (Reason: Sleep) RF: 0 amlodipine [Norvasc] 10 mg Tablet 10 mg PO DAILY RF: 0 metformin 1,000 mg Tablet See Rx Instructions .ROUTE .COMPLEX RF: 0 gabapentin 300 mg Capsule 600 mg PO TID RF: 0 losartan 100 mg Tablet 100 mg PO DAILY RF: 0 omega 8-oje-hks-fish oil [Fish Oil] 1,000 mg (120 mg-180 mg) Capsule 1 cap PO DAILY RF: 0 alogliptin 25 mg Tablet 25 mg PO DAILY RF: 0 carvedilol 12.5 mg Tablet 6.25 mg PO BID RF: 0 Discharge Orders: Discharge Order (Routine); Ordered 08/12/20 Ordered By: Sawyer Rock Discharge Diet: Advance as tolerated, Usual diet and As Directed Discharge Activity: Limit activity as instructed Activity Restrictions/Additional Instructions: Thank you for [facility] for your care! The following is a list of instructions, from your provider, to follow upon your discharge to ensure you have the optimal recovery from your recent injury orsurgery. Follow-up care is a godinez part of your treatment and safety. Be sure to make and go to all appointments, and call your doctor if you are having problems. If you do not already have a follow-up appointment made, call Dr. Rock office in the next 1-3 days to make follow up appointment for 2 weeks at [phone]. It is also a good idea to know your test results and keep a list of the medicines you take. Medications will be prescribed for you at your provider's discretion. These medications are to be used as instructed; if they are taken more often that prescribed they will not be refilled early and in most cases will not be refilled at all. > When a refill is needed,you should contact [facility] 2-3 business days before your prescription runs out. Medications will NOT be refilled by customer service sales consultant providers after hours! > Many pain medications contain Tylenol (Acetaminophen). Do not consume more than 4,000 mg of Tylenol per day in total with any combination ofmedications. > Pain medications can cause constipation. Please use an over the counter stool softener as directed, while taking pain medications. Consulty our local pharmacist with questions or recommendations on stool softeners. If constipation persists, contact our office or your primary care provider. > While under our care,you are not to receive pain medications or other controlled substances from any other provider unless our office is notified and approves. Any attempts to do so will result in refusal to prescribe any further pain medications and possible dismissal from our practice. ? Your wound and/or dressing should remain clean and dry for 2 days after surgery. On postoperative day 2 (48 hours after your surgery) the dressing (if present) should be removed and it is okay to shower and get the incision wet. Pad dry afterwards. No further dressing should be required from that point on. Do not put any creams or ointments on theincision > It is normal for there to be a small amount of discharge (bloody or blood tinged) present from a surgical wound for the first 1-3days. > The wound should be examined twice a day for signs of infection. Mild redness or bruising is to be expected but indications that an infection maybe starting would include; An increase in redness, swelling, or discharge, a foul odor present around the incision, and/or a fever greater than 101 ?F ? Showering is permitted, however we ask that you do not take a bath, sit in a whirlpool / Jacuzzi, or go swimming for 1 month. For only the first 2 days after surgery, lt wilt be necessary for you to cover your wound/dressing with plastic and tape to keep it dry. ? Walking is essential for the healing process after surgery. We would like you to slowly advance your walking. This should be done on relatively flat clear ground (inside or out) or can be done on a treadmill. Remember this goal does not have to happen all at once, slowly increase your distance and duration. This can be broken into more more than one walk per day as tolerated. Patients who walk as directed after surgery rarely require Physical Therapy. In the unlikely event this issue arises your provider will direct hospital staff to make the appropriate arrangements. ? No lifting over 5 pounds {a gallon of milk) or bending/twisting until further notice. Each of these activities places an unnecessary amount of stress onto the body and can impede the delicate healing process. > Instead of bending at the waist, keep your back straight and bend at the knees. > Instead of twisting your torso, keep your back straight and turn your entire body with your feet. ? You may sleep in any position which makes you comfortable. Many patients find comfort sleeping in a reclining chair. It is not abnormal to have difficulty sleeping for the first several weeks following your surgery. We recommend trying Benadry! or Tylenol PM as directed to help with your sleeping difficulties. Both medications are over the counter and available withoutprescription. ? NO SMOKING!!! Smoking dramatically increases the probability of d eveloping postoperative wound infections. ? Common complaints after lumbar and/or thoracic spine surgery include, but are not limited to: numbness and/or tingling in the legs, pain around the i ncision and surrounding tissues, muscle spasms, or stiffness of the middle to low back. Contact our office if these symptoms persist or if an acute change occurs. ? No driving for the first 3-5days, and not while taking narcotics [] until seen at your follow-up appointment and cleared. There are no restrictions for riding on short trips, however if you take a longer trip, arrangements shoul d be made to make regular stops to get out of the vehicle and stretch . ? Swelling is an unfortunate event that will take place with any surgery and is the primary source of your postoperative discomfort. While walking and regular approved activities helps control inflammation, there are additional steps you can take to minimizeswelling. > Place ice over the surgical site and surrounding tissue for twenty minutes, followed by applying a low/medium heat (heating pad) for an additional twenty minutes every 1-2 hours as needed for painrelief. > You may use of over the counter anti-inflammatory medications (Ibuprofen, Motrin, Aleve, Advil, etc) as directed on the package label. These types of medicines wm significantly reduce the amount of discomfort you experience after surgery from swelling. It should be noted that if you have and allergy to any of these medications, or a history of ulcers or kidney disease you should consult you primary care provider prior to starting these medications. Discharge Attestations Time Spent in Discharge Care*: less than 30 min Quality Metrics Clinical Quality Measures During this hospital stay, did patient experience: None Coding Level of Care Code Acute Merchant Police for Ellen Fwd Diagnoses Chronic back pain M54.9; G89.29 Diabetes mellitus E11.9 Hyperlipidemia E78.5 Hypertension I10 Peripheral neuropathy G62.9
[2020-08-12] MEDS: chlorthalidone 25 mg Tablet PO (08:22)
[2020-08-12] MEDS: aspirin 81 mg EC Tablet PO (08:22)
[2020-08-12] MEDS: metformin 500 mg Tablet PO ×3 (08:23→17:41)
[2020-08-12] MEDS: losartan 50 mg Tablet 100 MG PO (08:23)
[2020-08-12] MEDS: multivitamin therapeutic Tablet 1 TAB PO (08:23)
[2020-08-12] MEDS: docusate sodium 100 mg Capsule PO ×2 (08:23→17:41)
[2020-08-12] MEDS: gabapentin 300 mg Capsule 600 MG PO ×3 (08:23→20:53)
[2020-08-12] MEDS: carvedilol 6.25 mg Tablet PO ×2 (08:23→17:41)
[2020-08-12] MEDS: potassium chloride ER 10 mEq Tablet PO (08:23)
--- NOTE | 2020-08-12 10:09 | PM.PN ---
Subjective Subjective: Interval history: Morales reports he feels pretty good. Back is not hurting him much. Orthopedics is discharged him. Medications: Reviewed: Yes Vitals/I&O/Wt Last Vital Signs Temp 98.9 F 08/12/20 07:43 Pulse 81 08/12/20 07:43 Resp 17 08/12/20 07:43 BP 144/62 08/12/20 08:23 Pulse Ox 90 08/12/20 07:43 08/11/20 08/12/20 08/12/20 22:59 06:59 14:59 Intake Total 1360 / 1890 240 / 240 Balance 1360 / 1890 240 / 240 Physical Exam Narrative: EXAM NARRATIVE: General exam no apparent distress Cardiovascular regular in rhythm without murmur Lungs clear Abdomen is soft with positive bowel sounds Extremities no cyanosis clubbing or edema Urinary Catheter Management^: Teague: Cath Placed During This Visit: yes, but has since been removed by the nurse Urinary Catheter Date of Insertion: 08/10/20 Urinary Catheter Time of Insertion: 07:30 Date Urinary Catheter Removed: 08/10/20 Time Urinary Catheter Discontinued: 11:12 Data : 08/11/20 02:09 08/11/20 02:09 A&P Assessment and plan (1) Chronic back pain: Postoperative day #2 status post L3/5 fusion and instrumentation. Doing very well postoperatively. Status: Acute (2) Diabetes mellitus: Blood sugar slightly higher than I would like. Change to moderate sliding scale. Continue Metformin, liptin On discharge home resume home medications Status: Acute (3) Hyperlipidemia: Continue home medication Status: Acute (4) Hypertension: Continue home medication Status: Acute (5) Peripheral neuropathy: Continue home medication Status: Acute Additional A&P Information He was still on oxygen this morning. I told the nurse to discontinue this, and check oxygenation on room air. If appropriate proceed with discharge orders. If not they were to contact me and further evaluation would be considered. Lovenox for DVT prophylaxis Attestations Medical Necessity Statement*: As per primary Coding Level of Care Code Acute Home Energy Consultant Supervisor for Ellen Fwd Diagnoses Chronic back pain M54.9; G89.29 Diabetes mellitus E11.9 Hyperlipidemia E78.5 Hypertension I10 Peripheral neuropathy G62.9
[2020-08-12 11:15] LABS: Glucose Point of Care 331 mg/dL (70-110)
--- NOTE | 2020-08-12 11:58 | XR_ITS ---
WS: [id number] PORTABLE CHEST HISTORY: hypoxia COMPARISON: None available. Focal area of atelectasis and/or fluid at the LEFT costophrenic angle. Otherwise the lungs are clear with a few scattered granulomata. Normal vasculature. No pneumothorax. Cardiac size: Normal. Mediastinum/Aorta: Normal mediastinum. No osseous abnormality seen. XR/XR chest 1V portable [id number] IMPRESSION: 1. Minimal subsegmental atelectasis and/or small LEFT pleural effusion. 2. No pneumonia.
--- NOTE | 2020-08-12 13:36 | CT_ITS ---
WS: [id number] CT CHEST ANGIOGRAPHY WITH REFORMATS HISTORY: hypoxia TECHNIQUE: Contiguous axial images are obtained through the chest during arterial injection of intrav enous contrast. Images are reconstructed to evaluate the pulmonary arteries. MIP imaging also reviewe d. All CT scans at [facility] use at least one of these dose optimization techniques: aut omated exposure control; mA and/or kV adjustment per patient size (includes targeted exams where dose is matched to clinical indication); or iterative reconstruction. CONTRAST: Omnipaque 350; 95 mL IV. DLP: 617.98 mGy.cm COMPARISON: None available. Adequate opacification of the central pulmonary arteries. Beyond the lobar and some of the segmental branches the opacification is insufficient to exclude pulmonary embolism. Pulmonary artery size is en larged and equal to the aorta. Normal-sized thoracic aorta with mild atherosclerosis. Subsegmental atelectasis at the lung bases bilaterally. Slightly greater at the LEFT lung base. No pl eural effusion. Mildly prominent mediastinal and hilar lymphoid tissue measuring up to 8 mm. No abnormality in the upper abdomen. Mild hepatic steatosis. Increase in thoracic kyphosis. CT/CT angio chest PE protcl [id number] IMPRESSION: 1. Limited opacification of the pulmonary arteries due to poor injection timin g. No central pulmonary embolism. Beyond the lobar branches the opacification i s limited. Small peripheral emboli are not excluded. 2. Bibasilar areas of subsegmental atelectasis, LEFT greater than RIGHT.
[2020-08-12 14:03] LABS: ABG PCO2 49.6 mmHg (35-45); Arterial Blood Gas Hematocrit 33.5 % (42-52); Base Excess ABG 5.1 mmol/L (-2.0-2.0); Blood Gas Allen Test Pos; Blood Gas Operator Identificat ED; Blood Gas Sample Site Radial, right; Blood Gas Sample Type Arterial; HCO3 ABG 30.8 mmol/L (22-26); Oxygen Device NC; PO2 ABG 59.6 mmHg (80.0-100.0)
[2020-08-12] MEDS: iohexol 350 mg/mL 100 mL Btl IV (14:53)
[2020-08-12] MEDS: ipratropium-albuterol 3 mL Neb INHALATION ×2 (15:30→21:10)
[2020-08-12 16:07] LABS: Glucose Point of Care 242 mg/dL (70-110)
[2020-08-12] MEDS: ketorolac 30 mg/mL INJ IVP (17:41)
[2020-08-12] MEDS: atorvastatin 40 mg Tablet 20 MG PO (17:41)
[2020-08-12] MEDS: magnesium hydroxide 30 mL UDC PO (21:08)
[2020-08-12 21:28] LABS: Glucose Point of Care 166 mg/dL (70-110)
[2020-08-13] VITALS (10 sets, daily range): BP systolic 139–170; BP diastolic 69–74; PULSE 66–76; RESP 16–18; TEMP 36.7–37.3; O2SAT 89–96
[2020-08-13] MEDS: HYDROcodone-acetaminophen 5-325 mg Tablet PO ×2 (01:28→10:06)
[2020-08-13] MEDS: ipratropium-albuterol 3 mL Neb INHALATION ×2 (03:47→08:17)
[2020-08-13 05:00] LABS: Basophils % 0.5 %; Eosinophils # 0.1 10^3/uL (0.0-0.8); Eosinophils % 0.9 %; Hematocrit 29.3 % (42.0-52.0); Hemoglobin 9.7 g/dL (11.7-16.6); Lymphocytes # 0.7 10^3/uL (0.8-4.8); Lymphocytes % 13.1 %; Mean Corpuscular HGB Conc 33.1 g/dL (30.0-36.0); Mean Corpuscular Hemoglobin 28.4 pg (28.0-34.0); Mean Corpuscular Volume 85.9 fL (80-94); Mean Platelet Volume 9.5 fL (7.4-10.4); Monocytes # 0.7 10^3/uL (0.2-0.9); Monocytes % 13.1 %; Neutrophils # 4.06 10^3/uL (1.8-7.7); Neutrophils % 71.9 %; Nucleated Red Blood Cells % 0 %; Platelet Count 145 10^3/cmm (130-400); Red Blood Count 3.41 10^6/uL (4.1-5.3); Red Cell Distribution Width 13.1 % (12.1-15.1); White Blood Count 5.7 10^3/uL (4.0-10.0)
[2020-08-13 05:26] LABS: Anion Gap 8.3 (5-19); Blood Urea Nitrogen 20 mg/dL (8-23); Calcium 8.9 mg/dL (8.5-10.5); Carbon Dioxide 34 mmol/L (22-29); Chloride 95 mmol/L (98-107); Glucose 181 mg/dL (65-115); Osmolality Calculated 285 mOsm/kg (285-295); Potassium 3.3 mmol/L (3.5-5.1); Sodium 134 mmol/L (136-145)
[2020-08-13] MEDS: enoxaparin 40 mg/0.4 mL Syringe SUBCUT (06:41)
[2020-08-13 06:49] LABS: Glucose Point of Care 195 mg/dL (70-110)
--- NOTE | 2020-08-13 07:45 | P.PN_ITS ---
Subjective Subjective: Interval history: Morales reported he did okay last night. His discharge was held secondary to hypoxia requiring oxygen. I discussed this with the patient in detail and reports that often his oxygen level is 88 to 90% ambulatory at home. He relates he does not smoke nor has had smoke exposure but has quite a bit of exposure and wood products and dust and does not wear a mask. This note should also serve as an addendum to the discharge summary done by Dr. Rock. Medications: Reviewed: Yes Vitals/I&O/Wt Last Vital Signs Temp 98.5 F 08/13/20 07:32 Pulse 69 08/13/20 07:32 Resp 17 08/13/20 07:32 BP 139/71 08/13/20 07:32 Pulse Ox 92 08/13/20 07:32 08/12/20 08/13/20 08/13/20 22:59 06:59 14:59 Intake Total 360 / 840 Balance 360 / 840 Physical Exam Narrative: EXAM NARRATIVE: General exam no apparent distress Cardiovascular regular in rhythm without murmur Lungs clear Abdomen is soft with positive bowel sounds Extremities no cyanosis clubbing or edema Urinary Catheter Management^: Teague: Cath Placed During This Visit: yes, but has since been removed by the nurse Urinary Catheter Date of Insertion: 08/10/20 Urinary Catheter Time of Insertion: 07:30 Date Urinary Catheter Removed: 08/10/20 Time Urinary Catheter Discontinued: 11:12 Data : 08/13/20 04:40 08/13/20 04:40 A&P Assessment and plan (1) Chronic back pain: Postoperative day #3 status post L3/5 fusion and instrumentation. Doing very well postoperatively. Status: Acute (2) Diabetes mellitus: Blood sugar slightly higher than I would like. Change to moderate sliding scale. Continue Metformin, liptin On discharge home resume home medications Status: Acute (3) Hyperlipidemia: Continue home medication Status: Acute (4) Hypertension: Continue home medication Status: Acute (5) Peripheral neuropathy: Continue home medication Status: Acute (6) Chronic lung disease: Status: Acute Additional A&P Information Chronic lung disease. This is established by blood gas showing compensated respiratory acidosis. PCO2 was approximately 50. CTA demonstrated bibasilar atelectasis, no pulmonary embolism. I think he is safe to go home, and should have further testing as an outpatient and pulmonary. I will prescribe a Combivent inhaler for him to use as needed to see if this makes any difference. He is not actively wheezing currently. Lovenox for DVT prophylaxis Attestations Medical Necessity Statement*: Not applicable Coding Level of Care Code Acute Market Development Manager for g Fwd Diagnoses Chronic back pain M54.9; G89.29 Diabetes mellitus E11.9 Hyperlipidemia E78.5 Hypertension I10 Peripheral neuropathy G62.9 Chronic lung disease J98.4
--- NOTE | 2020-08-13 09:52 | PM.PN ---
Subjective Subjective: Interval history: Doing okay this morning. Pain controlled. Patient is constipated. The ulnar nerve issue patient was having his right arm has completely resolved. Vitals/I&O/Wt Last Vital Signs Temp 98.5 F 08/13/20 07:32 Pulse 70 08/13/20 08:27 Resp 16 08/13/20 08:27 BP 139/71 08/13/20 07:32 Pulse Ox 96 08/13/20 08:27 08/12/20 08/13/20 08/13/20 22:59 06:59 14:59 Intake Total 360 / 840 240 / 240 Balance 360 / 840 240 / 240 Physical Exam Narrative: EXAM NARRATIVE: About a 5 strength bilateral lower extremities. Sensation intact. Wound clean dry and intact. Urinary Catheter Management^: Teague: Cath Placed During This Visit: yes, but has since been removed by the nurse Urinary Catheter Date of Insertion: 08/10/20 Urinary Catheter Time of Insertion: 07:30 Date Urinary Catheter Removed: 08/10/20 Time Urinary Catheter Discontinued: 11:12 Data : 08/13/20 04:40 08/13/20 04:40 A&P Additional A&P Information Postop day #3 L3-4 L4-5 posterior lumbar interbody fusion. At this point patient will be discharged home today likely with home oxygen. Attestations Medical Necessity Statement*: Likely discharge today. 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
[2020-08-13] MEDS: multivitamin therapeutic Tablet 1 TAB PO (10:05)
[2020-08-13] MEDS: gabapentin 300 mg Capsule 600 MG PO (10:05)
[2020-08-13] MEDS: aspirin 81 mg EC Tablet PO (10:05)
[2020-08-13] MEDS: docusate sodium 100 mg Capsule PO (10:05)
[2020-08-13] MEDS: potassium chloride ER 20 mEq Tablet 40 MEQ PO (10:05)
[2020-08-13] MEDS: omega-3 fatty acids 1,000 mg Capsule 1000 MG PO (10:05)
[2020-08-13] MEDS: amlodipine 10 mg Tablet PO (10:05)
[2020-08-13] MEDS: chlorthalidone 25 mg Tablet PO (10:05)
[2020-08-13] MEDS: potassium chloride ER 10 mEq Tablet PO (10:06)
[2020-08-13] MEDS: metformin 500 mg Tablet PO ×2 (10:06→13:25)
[2020-08-13] MEDS: losartan 50 mg Tablet 100 MG PO (10:06)
[2020-08-13] MEDS: carvedilol 6.25 mg Tablet PO (10:06)
[2020-08-13] MEDS: magnesium hydroxide 30 mL UDC PO (10:07)
--- NOTE | 2020-08-13 10:10 | PC.SOCIAL ---
Pg 2 IMM Explained to pt Pg 2 IMM. No questions voiced. Provided pt a copy. Signed, dated, timed a copy & placed in chart.
[2020-08-13 11:12] LABS: Glucose Point of Care 307 mg/dL (70-110)
== END 2020-08-13 14:45 | disposition home or self-care (01) | DRG 460 ==
LOC: MEDSURG 08-11 09:08
PROVIDERS: Internal Medicine; Admitting Provider Orthopaedic Surgery; Visit Provider Orthopaedic Surgery
PROC: 0SG10AJ Fusion of 2 or more Lumbar Vertebral Joints with Interbody Fusion Device, Posterior Approach, Anterior Column, Open Approach (ICD-10-PCS; principal; 2020-08-10 07:00)
DX: M48.062 Spinal stenosis, lumbar region with neurogenic claudication (principal); Z79.82 Long term (current) use of aspirin; Z79.84 Long term (current) use of oral hypoglycemic drugs; M53.2X6 Spinal instabilities, lumbar region; M43.16 Spondylolisthesis, lumbar region; G89.29 Other chronic pain; E11.42 Type 2 diabetes mellitus with diabetic polyneuropathy; E78.5 Hyperlipidemia, unspecified; I10 Essential (primary) hypertension; Z85.820 Personal history of malignant melanoma of skin; G56.21 Lesion of ulnar nerve, right upper limb
CPT/HCPCS: 12345; 36415; 36416; 36600; 51702; 71045; 71275; 72100; 76000; 80048; 80053; 82803; 82962; 85025; 87635; 94640; 94660; 96372; 96374; 97110; 97116; 97161; 97530; A7015; C1713; C9359; J0131; J0330; J0690; J1100; J1644; J1650; J1815; J1885; J2270; J2405; J2704; J3010; J3370; J3490; J7030; Q9967

== ENCOUNTER 2020-08-25 12:30 | Outpatient (CLI) | payer MEDICARE, OTHER, SELFPAY ==
[2020-08-25 13:03] LABS: Basophils % 0.6 %; Eosinophils # 0.1 10^3/uL (0.0-0.8); Eosinophils % 1.8 %; Lymphocytes # 0.6 10^3/uL (0.8-4.8); Lymphocytes % 12.7 %; Mean Corpuscular HGB Conc 32.4 g/dL (30.0-36.0); Mean Corpuscular Hemoglobin 28.4 pg (28.0-34.0); Mean Corpuscular Volume 87.7 fL (80-94); Mean Platelet Volume 8.8 fL (7.4-10.4); Monocytes # 0.4 10^3/uL (0.2-0.9); Neutrophils # 3.83 10^3/uL (1.8-7.7); Neutrophils % 76.3 %; Nucleated Red Blood Cells % 0 %; Platelet Count 266 10^3/cmm (130-400); Red Blood Count 4.22 10^6/uL (4.1-5.3); Red Cell Distribution Width 14.2 % (12.1-15.1)
[2020-08-25 13:03] LABS: Add Urine Microscopic? NO
[2020-08-25 13:26] LABS: Bilirubin Urine Neg (Negative); Blood Urine Neg (Negative); Glucose Urine UA Norm (Normal); Ketones Urine Negative (Negative); Leukocyte Esterase Urine Negative (Negative); Nitrate Urine Negative (Negative); Protein Urine Neg (Negative); Specific Gravity, Urine 1.015 (1.005-1.030); Sulfosalicylic Acid Urine Negative (Negative); Urine Appearance Clear (CLEAR); Urine Color Straw (Yellow); Urobilinogen Urine 1 mg/dL (Negative); pH Urine 8 (5-7)
[2020-08-25 13:29] LABS: Alanine Aminotransferase 16 U/L (0-41); Alkaline Phosphatase 133 IU/L (40-130); Aspartate Amino Transferase 23 U/L (0-40); Blood Urea Nitrogen 14 mg/dL (8-23); C Reactive Protein 2.8 mg/L (0.0-4.9); Calcium 9.7 mg/dL (8.5-10.5); Carbon Dioxide 30 mmol/L (22-29); Chloride 94 mmol/L (98-107); Globulin 3.3 g/dL (1.3-4.6); Glucose 139 mg/dL (65-115); Osmolality Calculated 279 mOsm/kg (285-295); Sodium 133 mmol/L (136-145); Total Bilirubin 0.5 mg/dL (0.15-1.2); Total Protein 7.3 g/dL (6.6-8.7)
[2020-08-25 13:34] LABS: Urine Creatinine 133 mg/dL (39-259); Urine Protein Random 17 mg/dL
[2020-08-25 13:49] LABS: Erythrocyte Sedimentation Rate 41 mm/hr (0-10)
[2020-08-26 15:57] LABS: Anti-Double Strand DNA AB <1 IU/mL; Jo-1 Antibody <1.0 NEG AI (<1.0 NEG); SM/RNP Antibodies <1.0 NEG AI (<1.0 NEG); SS-B/LA IGG <1.0 NEG AI (<1.0 NEG); Scleroderma Ab(Scl-70) Ab <1.0 NEG AI (<1.0 NEG); Ss-A/Ro Igg <1.0 NEG AI (<1.0 NEG)
== END 2020-08-25 12:31 | disposition home or self-care (01) ==
PROVIDERS: PCP Emergency Medicine Emergency Medical Services; Visit Provider Internal Medicine Pulmonary Disease
DX: J98.4 Other disorders of lung (principal); J84.9 Interstitial pulmonary disease, unspecified
CPT/HCPCS: 36415; 80053; 81003; 82570; 84156; 85025; 85651; 86140; 86225; 86235

== ENCOUNTER → 2020-09-09 10:52 | Outpatient (BNVA) | payer MEDICARE, OTHER, SELFPAY | PROVIDERS: PCP Emergency Medicine Emergency Medical Services; Visit Provider Internal Medicine Pulmonary Disease | DX: J98.4 Other disorders of lung (principal); Z20.822 Contact with and (suspected) exposure to COVID-19 | CPT/HCPCS: 87635 ==

== ENCOUNTER 2020-09-13 11:46 | Outpatient (CLI) | payer MEDICARE, OTHER, SELFPAY ==
--- NOTE | 2020-09-13 12:45 | USCV_ITS ---
Morales Pendleton Age: 74 Gender: M : 1945 Exam Date: 09/13/2020 12:17 Ordering Phys: Michael Henry MD Technologist: Exam Location: [facility] [place] Indication: CHEST PAIN BP: 156 / 92 HR: 59 Rhythm: Sinus Technical Quality: Adequate MEASUREMENTS (Male / Female) Normal Values 2D ECHO LV Diastolic Diameter PLAX 3.9 cm 4.2 - 5.9 / 3.9 - 5.3 cm LV Systolic Diameter PLAX 2.6 cm IVS Diastolic Thickness 1.1 cm 0.6 - 1.0 / 0.6 - 0.9 cm IVS Systolic Thickness 1.9 cm LVPW Diastolic Thickness 1.2 cm 0.6 - 1.0 / 0.6 - 0.9 cm LVPW Systolic Thickness 1.7 cm LVOT Diameter 2.0 cm LV Ejection Fraction 2D Teich 63.3 % LV Ejection Fraction MOD 2C 63.1 % LV Ejection Fraction 2C AL 62.9 % LA Diameter 4.7 cm LA Width 4.1 cm LA Height 5.2 cm RA Width 3.9 cm RA Height 5.3 cm Aorta at Sinotubular Diameter 4.3 cm M-MODE LV Diastolic Diameter MM 6.0 cm 4.2 - 5.9 / 3.9 - 5.3 cm LV Systolic Diameter MM 3.5 cm LV Ejection Fraction MM Teich 72.9 % IVS Diastolic Thickness MM 1.2 cm 0.6 - 1.0 / 0.6 - 0.9 cm IVS Systolic Thickness MM 1.8 cm LVPW Diastolic Thickness MM 1.2 cm 0.6 - 1.0 / 0.6 - 0.9 cm LVPW Systolic Thickness MM 1.8 cm RV Diastolic Diameter MM 1.6 cm Aortic Annulus Diameter 4.2 cm LA Ao Ratio MM 1.2 MV E Point Septal Separation 0.7 cm DOPPLER AV Peak Velocity 125.0 cm/s LVOT Peak Velocity 102.0 cm/s AV Area Cont Eq vti 2.5 cm squared AV Area Cont Eq pk 2.6 cm squared MV Area PHT 5.0 cm squared Mitral E to A Ratio 0.8 MV E' Velocity 44.5 cm/s Mitral E to MV E' Ratio 13.4 Mitral E to LV E' Lateral Ratio 14.6 Mitral E to LV E' Septal Ratio 12.4 TR Peak Velocity 117.0 cm/s TR Peak Gradient 5.5 mmHg TV Peak E Velocity 78.0 cm/s Right Atrial Pressure 3.0 mmHg Pulmonary Artery Systolic Pressu 8.5 mmHg PV Peak Velocity 101.0 cm/s FINDINGS Left Ventricle Normal left ventricular size. LV systolic function is normal with EF of 55-60%. No regional wall motion abnormalities. Grade 1 diastolic dysfunction Right Ventricle The right ventricle is normal in size and function. Right Atrium The right atrium is normal in size. Left Atrium The left atrium is normal in size. Mitral Valve Mild mitral annular calcification is seen without significant stenosis or prolapse. There is no mitral regurgitation. Aortic Valve Aortic valve is thickened without significant sclerosis or stenosis. There is no aortic regurgitation. Tricuspid Valve Structurally normal tricuspid valve without significant stenosis or regurgitation. Insufficient TR jet to calculate RVSP Pulmonic Valve Structurally normal pulmonic valve without significant stenosis. There is no pulmonic regurgitation. Pericardium Normal pericardium without effusion. Aorta Dilated aortic root CONCLUSIONS LV systolic function is normal with EF of 55-60% Grade 1 diastolic dysfunction Mild mitral annular calcification Aortic root is dilated. Recommend CTA to assess for thoracic aortic aneurysm No comparison studies are available Caesar Grover MD (Electronically Signed) Final Date: 13 September 2020 14:36 S
--- NOTE | 2020-09-13 13:30 | CT_ITS ---
WS: [id number] CT CHEST ANGIOGRAPHY WITH REFORMATS HISTORY: resolution on pulmonary embolism TECHNIQUE: Contiguous axial images are obtained through the chest during arterial injection of intrav enous contrast. Images are reconstructed to evaluate the pulmonary arteries. MIP imaging also reviewe d. All CT scans at [facility] use at least one of these dose optimization techniques: aut omated exposure control; mA and/or kV adjustment per patient size (includes targeted exams where dose is matched to clinical indication); or iterative reconstruction. CONTRAST: Omnipaque 350; 95 mL IV. DLP: 618.59 mGy.cm COMPARISON: 08/12/2020 Excellent opacification of the pulmonary arteries. No pulmonary embolism is identified. Pulmonary art beryl size is equal to the aorta. Very mild atherosclerosis of the aorta. Mild enlargement of the LEFT heart and findings suspicious for LEFT ventricular hypertrophy. No pericardial or pleural effusions. No mediastinal or hilar adenopathy. Scattered pulmonary granulomata. Mild tree-in-bud airspace disease in the RIGHT middle lobe has impro marixa moderately since the prior study. 8mm nodule along the inferior RIGHT major fissure was not prese nt on the most recent study therefore this is probably atelectasis or a lymph node. LEFT vertebral artery arises directly from the aortic arch. Hepatic steatosis. No adrenal mass. CT/CT angio chest PE protcl [id number] IMPRESSION: 1. No pulmonary embolism. 2. Mild pulmonary hypertension. 3. RIGHT middle lobe mild tree-in-bud opacification most likely inflammatory. 4. No pneumonia.
--- NOTE | 2020-09-13 13:42 | PFTS_ITS ---
Date of Study:09/13/20 Date of Dictation: MECHANICS: Forced vital capacity (FVC) is normal. Forced expiratory volume in one second (FEV1) is normal. FEV1/FVC is normal. FLOW VOLUME LOOP: . LUNG VOLUMES: Total lung capacity (TLC) is normal. Residual volume (RV) is normal. DIFFUSING CAPACITY FOR CARBON MONOXIDE: Normal INTERPRETATION: The pulmonary function tests are normal. MTDD
[2020-09-13] MEDS: iohexol 350 mg/mL 100 mL Btl IV (14:00)
== END 2020-09-13 11:47 | disposition home or self-care (01) ==
PROVIDERS: PCP Emergency Medicine Emergency Medical Services; Visit Provider Internal Medicine Pulmonary Disease
DX: I26.99 Other pulmonary embolism without acute cor pulmonale (principal); R06.09 Other forms of dyspnea; I27.20 Pulmonary hypertension, unspecified; R07.9 Chest pain, unspecified
CPT/HCPCS: 71275; 93306; 94010; 94726; 94729

== ENCOUNTER → 2020-09-21 10:20 | Outpatient (BNVA) | payer MEDICARE, OTHER, SELFPAY | PROVIDERS: PCP Emergency Medicine Emergency Medical Services; Visit Provider Internal Medicine Cardiovascular Disease | DX: R06.09 Other forms of dyspnea (principal); E11.69 Type 2 diabetes mellitus with other specified complication; E78.5 Hyperlipidemia, unspecified; I10 Essential (primary) hypertension; Z79.899 Other long term (current) drug therapy | CPT/HCPCS: 80048; 83735; 83880 ==

== ENCOUNTER → 2020-09-22 09:55 | Outpatient (BNVA) | payer MEDICARE, OTHER, SELFPAY | PROVIDERS: PCP Emergency Medicine Emergency Medical Services; Visit Provider Orthopaedic Surgery | DX: M54.5 Low back pain (principal); Z48.89 Encounter for other specified surgical aftercare; M48.062 Spinal stenosis, lumbar region with neurogenic claudication; Z98.1 Arthrodesis status | CPT/HCPCS: 72100 ==

== ENCOUNTER 2020-10-19 06:00 | Outpatient (RCR) | payer MEDICARE, OTHER, SELFPAY | END 2020-10-21 23:59 | disposition home or self-care (01) | LOC: APT 06:00 | PROVIDERS: PCP Emergency Medicine Emergency Medical Services; Referring Provider Internal Medicine Pulmonary Disease; Visit Provider Internal Medicine Pulmonary Disease | DX: Z47.89 Encounter for other orthopedic aftercare (principal) | CPT/HCPCS: 97110; 97163 ==

== ENCOUNTER 2020-10-22 06:00 | Outpatient (RCR) | payer MEDICARE, OTHER, SELFPAY | END 2020-11-21 23:59 | disposition home or self-care (01) | LOC: APT 06:00 | PROVIDERS: PCP Emergency Medicine Emergency Medical Services; Referring Provider Internal Medicine Pulmonary Disease; Visit Provider Internal Medicine Pulmonary Disease | DX: Z98.890 Other specified postprocedural states (principal) | CPT/HCPCS: 97110; 97112; 97530 ==

== ENCOUNTER 2020-11-08 08:02 | Outpatient (CLI) | payer MEDICARE, OTHER, SELFPAY ==
--- NOTE | 2020-11-08 08:45 | USCV_ITS ---
Morales Pendleton Age: 75 Gender: M : 1945 Exam Date: 11/08/2020 08:42 Ordering Phys: Olivia Doyle MD ([email or web address]) Technologist: Narda Anderson Exam Location: [facility] [place] Indication: DYSPNEA, HYPOXIA BUBBLE STUDY BP: 130 / 80 HR: 66 Rhythm: Sinus Technical Quality: Adequate MEASUREMENTS (Male / Female) Normal Values 2D ECHO LV Diastolic Diameter PLAX 3.1 cm 4.2 - 5.9 / 3.9 - 5.3 cm LV Systolic Diameter PLAX 1.7 cm IVS Diastolic Thickness 1.8 cm 0.6 - 1.0 / 0.6 - 0.9 cm IVS Systolic Thickness 2.5 cm LVPW Diastolic Thickness 2.1 cm 0.6 - 1.0 / 0.6 - 0.9 cm LVPW Systolic Thickness 1.7 cm RV Chamber Size 3.6 cm LVOT Diameter 2.0 cm LV Ejection Fraction 2D Teich 79.4 % LV Ejection Fraction MOD 2C 57.7 % LV Ejection Fraction 2C AL 57.9 % LA Diameter 3.7 cm LA Width 3.9 cm LA Height 5.9 cm RA Width 3.6 cm RA Height 4.5 cm Aorta at Sinotubular Diameter 2.5 cm M-MODE Aortic Annulus Diameter 4.0 cm LA Ao Ratio MM 0.9 MV E Point Septal Separation 0.6 cm FINDINGS Left Ventricle Normal left ventricular cavity size. Increased left ventricular wall thickness. Normal left ventricular systolic function. Left ventricular ejection fraction is estimated at 65 %. Although no diagnostic regional wall motion abnormality could be identified, this possibility cannot be completely excluded. Right Ventricle Normal right ventricular size and systolic function. Right Atrium Normal right atrial size. Left Atrium Normal left atrial size. Mitral Valve Severe mitral annular calcification. Moderately thickened mitral valve. Aortic Valve Thickened trileaflet aortic valve. Tricuspid Valve Tricuspid valve not well visualized. Pulmonic Valve Pulmonic valve not well visualized. Pericardium No pericardial effusion. Aorta Normal size aortic root and proximal ascending aorta. CONCLUSIONS 1. This is a technically difficult study. 2. Normal left ventricular cavity size. Increased left ventricular wall thickness. Normal left ventricular systolic function. Left ventricular ejection fraction is estimated at 65 %. Although no diagnostic regional wall motion abnormality could be identified, this possibility cannot be completely excluded. 3. Aneurysmal interatrial septum. No intracardiac shunt by agitated saline (bubble) study. However the study is difficult. 4. In case of strong clinical suspicion of intracardiac shunt, TRI may be considered. Olivia Doyle MD (Electronically Signed) Final Date: 10 Nov 2020 04:44 S
== END 2020-11-08 08:03 | disposition home or self-care (01) ==
LOC: US 08:04
PROVIDERS: PCP Emergency Medicine Emergency Medical Services; Visit Provider Internal Medicine Cardiovascular Disease
DX: R09.02 Hypoxemia (principal); R06.09 Other forms of dyspnea; R06.02 Shortness of breath
CPT/HCPCS: 72120; C8924

== ENCOUNTER 2020-11-22 06:00 | Outpatient (RCR) | payer MEDICARE, OTHER, SELFPAY | END 2020-12-21 23:59 | disposition home or self-care (01) | LOC: APT 06:00 | PROVIDERS: PCP Emergency Medicine Emergency Medical Services; Referring Provider Internal Medicine Pulmonary Disease; Visit Provider Internal Medicine Pulmonary Disease | DX: Z47.89 Encounter for other orthopedic aftercare (principal) | CPT/HCPCS: 97110; 97116; 97530 ==

== ENCOUNTER → 2020-12-08 08:33 | Outpatient (BNVA) | payer MEDICARE, OTHER, SELFPAY | PROVIDERS: PCP Emergency Medicine Emergency Medical Services; Visit Provider Internal Medicine Cardiovascular Disease | DX: M48.062 Spinal stenosis, lumbar region with neurogenic claudication (principal); Z20.822 Contact with and (suspected) exposure to COVID-19 | CPT/HCPCS: 87635 ==

== ENCOUNTER 2020-12-12 05:29 | Day surgery (SDC) | payer MEDICARE, OTHER, SELFPAY ==
[2020-12-09 15:50] VITALS: BMI 36.6
[2020-12-12 05:52] VITALS: BP 167/79; PULSE 65; RESP 18; TEMP 36.6; O2SAT 93
[2020-12-12 06:05] LABS: Glucose Point of Care 145 mg/dL (70-110)
[2020-12-12] MEDS: sodium chloride 0.9% 1,000 ML 30 ML IV (06:09)
--- NOTE | 2020-12-12 06:26 | USCV_ITS ---
Morales Pendleton Age: 75 Gender: M : 1945 Exam Date: 12/12/2020 06:49 Ordering Phys: Olivia Doyle MD ([email or web address]) Technologist: Victoria Ferreira Exam Location: [facility] [place] Indication: Atrial aneurysm BP: 169 / 70 HR: Rhythm: Sinus Technical Quality: Adequate MEASUREMENTS (Male / Female) Normal Values Medications Patient given IV sedation by anesthesia service, for details please refer to the anesthesia report. Complications Patient tolerated procedure well. Proc. Components The patient was brought to the TRI examination room in a fasting state after obtaining an informed consent. TRI was performed at multiple levels. The patient tolerated the procedure well and there were no complications. FINDINGS Left Ventricle Normal left ventricular size, systolic function and wall thickness, with no regional wall motion abnormalities. Left ventricular ejection fraction is estimated at 65 %. No evidence of ventricular septal defect by agitated saline or color doppler. Right Ventricle Normal right ventricular size and systolic function. Right Atrium Normal right atrial size. Left Atrium Normal left atrial size. LA Appendage Normal left atrial appendage. Normal flow velocities in the left atrial appendage. No thrombus visualized in the left atrial appendage. IA Septum Lipomatous hypertrophy of interatrial septum. No patent foramen ovale or atrial septal defect by color Doppler or agitated saline study. Mitral Valve Structurally normal mitral valve. No mitral valve stenosis. Trace mitral valve regurgitation. Aortic Valve Structurally normal trileaflet aortic valve. No aortic valve stenosis. No aortic valve regurgitation. Tricuspid Valve Structurally normal tricuspid valve. No tricuspid valve stenosis. Mild tricuspid valve regurgitation. Pulmonic Valve Structurally normal pulmonic valve. No pulmonary valve stenosis. Trace pulmonary valve regurgitation. Pericardium No pericardial effusion. Aorta Normal size aortic root and proximal ascending aorta. CONCLUSIONS 1. Normal left ventricular size, systolic function and wall thickness, with no regional wall motion abnormalities. Left ventricular ejection fraction is estimated at 65 %. 2. No evidence of intracardiac shunt. 3. Mild tricuspid valve regurgitation. 4. Lipomatous hypertrophy of interatrial septum. Olivia Doyle MD (Electronically Signed) Final Date: 12 December 2020 13:29 S
[2020-12-12 07:30] VITALS: BP 155/74; PULSE 82; RESP 16; TEMP 36.7; O2SAT 94
--- NOTE | 2020-12-12 07:34 | PM.ACPR ---
Procedure/Consent Time out: Time Out Performed: Yes Consent: Consent for Procedure: Consent obtained from patient, Risks & Benefits reviewed and Agrees to proceed with procedure Procedure Narrative: TRI Procedure note Indication: Unexplained Dyspnea Sedation: Propofol by anesthesia The patient was brought down to the GI lab. Procedure was explained to the patient in detail and informed consent was obtained. Timeout was called. After achieving adequate sedation, the probe was inserted on first attempt. Due to difficulties with probe detetction, probe had to be reinserted. No blood on the probe post procedure. Prelim report: Normal left ventricle size and systolic function. No left atrial or left atrial appendage mass or thrombus visualized. No ASD or PFO identified. Full report to follow. Patient tolerated the procedure well and initial recovery in GI lab and subsequently was discharged home. Acute Procedures Epistaxis Control: Time out performed: Yes
[2020-12-12 07:45] VITALS: BP 138/74; PULSE 82; RESP 18; TEMP 36.7; O2SAT 95
--- NOTE | 2020-12-12 08:21 | ANES.PREANE2 ---
Pre-Anesthetic Assessment Pre-Anesthetic Assessment: Height/Weight: Height 1.83 m Weight 122.47 kg Temp Pulse Resp BP Pulse Ox 98.0 F 82 18 138/74 95 12/12/20 07:45 12/12/20 07:45 12/12/20 07:45 12/12/20 07:45 12/12/20 07:45 Preop Diagnosis: ATRIAL SEPTAL ANEURYSM, TRI Proposed Procedure: Operation Date: 12/12/20 06:30 Proposed Procedures p TRI(Not Applicable) - Olivia Doyle MD Was Beta Keo taken within 24 hours: Yes Was Clonidine taken within 24 hours: N/A Last intake: Intake Last Liquid Date 12/11/20 Last Liquid Time 18:00 Last Solid Date 12/11/20 Last Solid Time 17:30 Social: Social History: No alcohol and No tobacco Exam: Pre-Anes Outpt Exam: alert, oriented x 3, clear to auscultation bilaterally and regular rate & rhythm Airway: Submandibular: WNL Cervical ROM: WNL MP: 2 Dentition: Full Additional comments: Mcginnis Pulmonary: Pulmonary: COPD Comments: Home O2 CV/HEM: CV/HEM: HTN Metabolic: Metabolic: DM and Morbid obesity Musc/skel: Musc/skel: Lower Back Pain Neuropsych: Neuropsych: Neuropathy Anesthetic Plan: ASA status: 3 Anesthesia: MAC Risk of > 500 ml blood loss (7ml/kg in children): No Meds/Allergies Current Medications: Current Medications Generic Name Dose Route Start Last Admin Trade Name Freq PRN Reason Stop Dose Admin Sodium Chloride 1,000 mls @ 30 ml s/hr 12/12/20 05:30 12/12/20 06:09 Sodium Chloride 0.9% IV 12/13/20 05:29 30 mls/hr .Q24H BUNNY Administration PFSH Anesthesia PFSH: Medical History Chronic back pain Diabetes mellitus Hyperlipidemia Hypertension Peripheral neuropathy Surgical History History of surgical removal of pilonidal cyst Hx of appendectomy Hx of melanoma excision Family History Other Cancer Social History (Reviewed 11/08/20 @ 11:17 by KELLEN Escalera Smoking and tobacco status: never smoked Second hand smoke exposure: Yes Smoking risk assessment/counseling performed?: Yes Alcohol intake: former Desire information about alcohol rehabilitation?: No Counseling given: No Lives independently: Yes Household members: spouse Housing: House Marital status: service: Yes Current occupational status: retired Pets and animals: Yes History of recent travel: No Current gender identity: Male Data Anesthesia Other Labs: Laboratory Results - last 48 hr 12/12/20 06:01 POC Glucose 145 H Cardiac Studies: Echocardiogram 11/08/20
--- NOTE | 2020-12-12 08:22 | ANE.PACU2 ---
Inpatient post-anesthesia follow up: Airway intact: Yes Vital signs: Temperature 98.0 F Pulse Rate 82 Respiratory Rate 18 Blood Pressure 138/74 Pulse Oximetry 95 Oxygen Delivery Me thod Nasal Cannula Oxygen Flow Rate 2 Fraction of Inspir ed Oxygen 2 Hydration adequate: Yes Nausea and vomiting: No Pain level: 1 Mental status: Baseline
== END 2020-12-12 08:10 | disposition home or self-care (01) ==
PROVIDERS: PCP Emergency Medicine Emergency Medical Services; Visit Provider Internal Medicine Cardiovascular Disease
PROC: (CPT 93312; principal; 2020-12-12 06:30)
DX: R06.00 Dyspnea, unspecified (principal); E78.5 Hyperlipidemia, unspecified; E11.42 Type 2 diabetes mellitus with diabetic polyneuropathy; I10 Essential (primary) hypertension
CPT/HCPCS: 36416; 82962; 93312; 93318; 93320; 93325; 96360; 96361; J7030

== ENCOUNTER → 2020-12-12 06:00 | Day surgery (SDC) | payer OTHER, SELFPAY ==
--- NOTE | 2020-12-12 05:47 | W.PM.OPSFHP ---
Same Day Surgery H&P Indication for Procedure/HPI DATE OF PROCEDURE: December 12, 2020 CHIEF COMPLAINT/INDICATIONFOR SURGICAL PROCEDURE: 74 yo man with PMHx of HTN, HLD, DM-2, peripheral neuropathy and h/o back sx. He was in the hospital when he desaturated requiring oxygen 2L. Chest x-ray showed left lower lobe atelectasis and possible small effusion. CT angio 08/02/2020 showed limited opacification of pulmonary arteries due to poor injection timing. No central PE. The opacification is limited. Small peripheral emboli cannot be excluded beyond the lobar branches. Patient reported dyspnea on exertion for several years that has reccently worsened. Patient never smoked. He is here for elective TRI to evaluate for intracardiac shunt. PREOP DIAGNOSIS: lumbar stenosis L3/4, L4/5 PLANNED PROCEDRUE: Operation Date: 12/12/20 12:00 Proposed Procedures p TRI(Not Applicable) - Olivia Doyle MD Medications/Allergies* Home Medications Medication Instructions Recorded Confirmed Type alogliptin 25 mg PO DAILY 03/12/20 12/09/20 History amlodipine [Norvasc] 10 mg PO DAILY 03/12/20 12/09/20 History aspirin 81 mg PO DAILY 03/12/20 12/09/20 History atorvastatin 20 mg PO QPM 03/12/20 12/09/20 History gabapentin 600 mg PO TID 03/12/20 12/09/20 History glipizide 10 mg PO BID 03/12/20 12/09/20 History ketoconazole See Rx Instructions .ROUTE .COMPLEX 03/12/20 12/09/20 History losartan 100 mg PO DAILY 03/12/20 12/09/20 History meloxicam [Mobic] 15 mg PO DAILY PRN 03/12/20 12/09/20 History metformin See Rx Instructions .ROUTE .COMPLEX 03/12/20 12/09/20 History multivitamin [Multiple Vitamins] 1 tab PO DAILY 03/12/20 12/09/20 History omega 4-uoh-eom-fish oil [Fish Oil] 1 cap PO DAILY 03/12/20 12/09/20 History trazodone 100 mg PO BEDTIME PRN 03/12/20 12/09/20 History triamcinolone acetonide 1 applic TOPICAL PRN 03/12/20 12/09/20 History Allergies/Adverse Reactions Allergy/AdvReac Type Severity Reaction Status Date / Time No Known Allergies Allergy Verified 10/06/20 09:52 Pertinent History/Comorbid Conditions* Medical History (Updated 08/25/20 @ 17:23 by Michael Henry MD) Chronic back pain Diabetes mellitus Hyperlipidemia Hypertension Peripheral neuropathy Surgical History (Updated 08/10/20 @ 16:20 by Shaggy Garza MD) History of surgical removal of pilonidal cyst Hx of appendectomy Hx of melanoma excision Family History (Updated 08/10/20 @ 16:20 by hSaggy Garza MD) Cancer Social History Smoking and tobacco status: never smoked Second hand smoke exposure: Yes Smoking risk assessment/counseling performed?: Yes Alcohol intake: former Desire information about alcohol rehabilitation?: No Counseling given: No Lives independently: Yes Household members: spouse Housing: House Marital status: service: Yes Current occupational status: retired Pets and animals: Yes History of recent travel: No Current gender identity: Male Pertinent Exam Findings alert, oriented x 3, clear to auscultation bilaterally and regular rate & rhythm Recommendations Surgery/Procedure today Coding Level of Care Code Acute 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
== END ==
PROVIDERS: PCP Emergency Medicine Emergency Medical Services; Visit Provider Internal Medicine Cardiovascular Disease
DX: R06.09 Other forms of dyspnea (principal); I25.3 Aneurysm of heart
CPT/HCPCS: J2704

== ENCOUNTER 2020-12-22 06:00 | Outpatient (RCR) | payer MEDICARE, OTHER, SELFPAY | END 2021-01-21 23:59 | disposition home or self-care (01) | LOC: APT 06:00 | PROVIDERS: PCP Emergency Medicine Emergency Medical Services; Referring Provider Internal Medicine Pulmonary Disease; Visit Provider Internal Medicine Pulmonary Disease | DX: Z98.890 Other specified postprocedural states (principal) | CPT/HCPCS: 97110 ==

== ENCOUNTER → 2021-03-23 09:00 | Outpatient (BNVA) | payer MEDICARE, OTHER, SELFPAY | PROVIDERS: PCP Emergency Medicine Emergency Medical Services; Visit Provider Internal Medicine Cardiovascular Disease | DX: R06.09 Other forms of dyspnea (principal); R06.02 Shortness of breath; I10 Essential (primary) hypertension; R09.02 Hypoxemia | CPT/HCPCS: 80053; 83735; 83880; 85025 ==

== ENCOUNTER → 2021-03-30 11:42 | Outpatient (BNVA) | payer MEDICARE, OTHER, SELFPAY | PROVIDERS: PCP Emergency Medicine Emergency Medical Services; Visit Provider Orthopaedic Surgery | DX: Z47.89 Encounter for other orthopedic aftercare (principal); M54.9 Dorsalgia, unspecified; G89.29 Other chronic pain; M43.26 Fusion of spine, lumbar region | CPT/HCPCS: 72100 ==

== ENCOUNTER 2021-04-24 06:00 | Outpatient (RCR) | payer MEDICARE, OTHER, SELFPAY | END 2021-05-23 23:59 | disposition home or self-care (01) | LOC: APT 06:00 | PROVIDERS: Absent Provider Orthopaedic Surgery; PCP Emergency Medicine Emergency Medical Services; Referring Provider Orthopaedic Surgery; Visit Provider Orthopaedic Surgery | DX: M54.50 Low back pain, unspecified (principal); G89.29 Other chronic pain; Z98.890 Other specified postprocedural states | CPT/HCPCS: 97110; 97162; 97164 ==

== ENCOUNTER 2021-05-24 06:00 | Outpatient (RCR) | payer MEDICARE, OTHER, SELFPAY | END 2021-05-31 23:59 | disposition home or self-care (01) | LOC: APT 06:00 | PROVIDERS: Absent Provider Orthopaedic Surgery; PCP Emergency Medicine Emergency Medical Services; Referring Provider Orthopaedic Surgery; Visit Provider Orthopaedic Surgery | DX: Z98.890 Other specified postprocedural states (principal); M43.26 Fusion of spine, lumbar region | CPT/HCPCS: 97110 ==

== ENCOUNTER → 2021-09-11 08:39 | Outpatient (BNVA) | payer MEDICARE, OTHER, SELFPAY | PROVIDERS: PCP Emergency Medicine Emergency Medical Services; Visit Provider Internal Medicine Cardiovascular Disease | DX: R06.09 Other forms of dyspnea (principal); E11.9 Type 2 diabetes mellitus without complications; E78.5 Hyperlipidemia, unspecified | CPT/HCPCS: 99214 ==

== ENCOUNTER 2021-10-18 12:00 | Outpatient (CLI) | payer OTHER, SELFPAY | END 2021-10-18 12:01 | disposition home or self-care (01) | LOC: SLEEP 10-19 12:14 | PROVIDERS: PCP Emergency Medicine Emergency Medical Services; Visit Provider Internal Medicine Pulmonary Disease | DX: G47.34 Idiopathic sleep related nonobstructive alveolar hypoventilation (principal) | CPT/HCPCS: 94762 ==

== ENCOUNTER → 2022-01-31 12:49 | Outpatient (BNVA) | payer OTHER, SELFPAY | PROVIDERS: PCP Emergency Medicine Emergency Medical Services; Visit Provider Internal Medicine Pulmonary Disease | DX: R06.09 Other forms of dyspnea (principal); J98.4 Other disorders of lung; R09.02 Hypoxemia; I10 Essential (primary) hypertension; I27.20 Pulmonary hypertension, unspecified; M79.641 Pain in right hand; M79.642 Pain in left hand; Z99.81 Dependence on supplemental oxygen; E66.2 Morbid (severe) obesity with alveolar hypoventilation; Z68.36 Body mass index [BMI] 36.0-36.9, adult | CPT/HCPCS: 99214 ==

== ENCOUNTER 2022-04-26 12:24 | Outpatient (CLI) | payer OTHER, SELFPAY | END 2022-04-26 12:25 | disposition home or self-care (01) | LOC: RT 12:24 | PROVIDERS: PCP Emergency Medicine Emergency Medical Services; Visit Provider Internal Medicine Pulmonary Disease | DX: J98.4 Other disorders of lung (principal) | CPT/HCPCS: 94010; 94618; 94726; 94729 ==

== ENCOUNTER → 2022-05-22 15:18 | Outpatient (BNVA) | payer OTHER, SELFPAY | PROVIDERS: PCP Emergency Medicine Emergency Medical Services; Visit Provider Orthopaedic Surgery | DX: M54.9 Dorsalgia, unspecified (principal); Z98.1 Arthrodesis status | CPT/HCPCS: 72110; 99214 ==

== ENCOUNTER 2022-09-21 08:17 | Outpatient (CLI) | payer MEDICARE, OTHER, SELFPAY ==
--- NOTE | 2022-09-21 08:45 | MR_ITS ---
WS: [id number] MRI LUMBAR SPINE NONCONTRAST HISTORY: low back pain, hx of a Lumbar fusion COMPARISON: 05/03/2020 TECHNIQUE: Sagittal and axial multisequence imaging is submitted. C3-4 cervical stenosis due to disc and facet arthritis. Patient is status post lumbar fusion from L3 to L5. This is new since the prior study from 2019. L2 r etrolisthesis by 3 mm. No new fracture. There is a small amount of reactive marrow edema in the endpl ates of L2 and L3. Disc spaces are narrowed and desiccated throughout the lumbar spine. Conus terminates normally at L1-2 disc level. L1-L2: Mild annular disc bulging with effacement of ventral CSF. LEFT foraminal disc protrusion causi ng moderate LEFT foraminal stenosis. There is very mild bilateral subarticular recess encroachment. L2-L3: Mild annular disc bulging, osteophytic ridging and facet arthritis. Effacement and deformity o f the ventral thecal sac. Moderate central with bilateral subarticular recess stenosis. Mild encroach ment upon the traversing L3 nerve roots. L3-L4: No central stenosis. Posterior laminectomy defect. No significant subarticular recess or lindsey inal stenosis. L4-L5: Very slight osteophytic ridging. Mild deformity of the thecal sac is probably from scarring. L arge posterior laminectomy defect. Moderate facet joint arthritis, RIGHT greater than LEFT. Facet татьяна nt arthritis encroaches on the RIGHT lateral thecal sac. Mild bilateral subarticular recess and lindsey inal stenosis, RIGHT greater than LEFT. L5-S1: Mild disc bulging with a LEFT foraminal disc protrusion. Complete effacement of fat within the LEFT foramen. Moderate RIGHT foraminal stenosis. Paravertebral soft tissues are normal. MR/MR lumbar spine wo con* [id number] IMPRESSION: 1. Since the prior MRI lumbar spine patient has undergone a posterior lumbar f usion extending from L3 to L5. Large posterior laminectomy defects at L3 and 4. 2. Diffuse disc space narrowing and desiccation throughout the lumbar spine. 3. Severe LEFT foraminal stenosis at L5-S1 and moderate on the RIGHT. Complete effacement of fat in the LEFT foramen with a disc protrusion. 4. Mild bilateral subarticular recess and foraminal stenosis L4-5. 5. Moderate LEFT foraminal stenosis with mild bilateral subarticular recess st enosis at L1-2. LEFT foraminal disc protrusion contributing to the stenosis. 6. Moderate central with bilateral subarticular recess stenosis at L2-3. Mild encroachment upon the traversing L3 nerve roots.
== END 2022-09-21 08:18 | disposition home or self-care (01) ==
PROVIDERS: PCP Emergency Medicine Emergency Medical Services; Visit Provider Orthopaedic Surgery
DX: Z98.1 Arthrodesis status (principal); M48.061 Spinal stenosis, lumbar region without neurogenic claudication; M25.78 Osteophyte, vertebrae; M51.37 Other intervertebral disc degeneration, lumbosacral region; M48.07 Spinal stenosis, lumbosacral region; E75.22 Gaucher disease
CPT/HCPCS: 36415; 72148; 81251; 99214

== ENCOUNTER → 2022-09-25 07:55 | Outpatient (BNVA) | payer MEDICARE, OTHER, SELFPAY | PROVIDERS: PCP Emergency Medicine Emergency Medical Services; Visit Provider Orthopaedic Surgery | DX: M54.50 Low back pain, unspecified (principal); Z98.1 Arthrodesis status; Z98.890 Other specified postprocedural states | CPT/HCPCS: 99214 ==

== ENCOUNTER → 2022-10-12 07:51 | Outpatient (BNVA) | payer OTHER, SELFPAY | PROVIDERS: PCP Emergency Medicine Emergency Medical Services; Visit Provider Otolaryngology | DX: H61.23 Impacted cerumen, bilateral (principal) | CPT/HCPCS: 69210; 99202 ==

== ENCOUNTER → 2023-03-12 15:01 | Outpatient (BNVA) | payer MEDICARE, OTHER, SELFPAY | PROVIDERS: PCP Emergency Medicine Emergency Medical Services; Visit Provider Orthopaedic Surgery | DX: G89.29 Other chronic pain; M25.552 Pain in left hip; M48.062 Spinal stenosis, lumbar region with neurogenic claudication; E11.9 Type 2 diabetes mellitus without complications | CPT/HCPCS: 36415; 72100; 73502; 80053; 81001; 83036; 85025; 99214 ==

== ENCOUNTER → 2023-08-09 10:47 | Outpatient (BNVA) | payer MEDICARE, OTHER, SELFPAY | PROVIDERS: PCP Emergency Medicine Emergency Medical Services; Visit Provider Orthopaedic Surgery | DX: G89.29 Other chronic pain; M43.26 Fusion of spine, lumbar region; E11.9 Type 2 diabetes mellitus without complications; Z79.84 Long term (current) use of oral hypoglycemic drugs; Z98.1 Arthrodesis status | CPT/HCPCS: 36415; 72100; 80053; 81003; 83036; 85025; 99214 ==

== ENCOUNTER → 2023-08-12 09:33 | Outpatient (BNVA) | payer OTHER, SELFPAY | PROVIDERS: PCP Emergency Medicine Emergency Medical Services; Referring Provider Emergency Medicine Emergency Medical Services; Visit Provider Nurse Practitioner | DX: M16.12 Unilateral primary osteoarthritis, left hip; M54.9 Dorsalgia, unspecified; G89.29 Other chronic pain | CPT/HCPCS: 73502; 99214 ==

== ENCOUNTER 2023-09-04 11:50 | Inpatient (IN) | payer MEDICARE, OTHER, SELFPAY ==
[2023-09-04] VITALS (28 sets, daily range): BP systolic 108–195; BP diastolic 48–92; PULSE 62–75; RESP 15–20; TEMP 36.2–36.9; O2SAT 90–96; BMI 35.9
--- NOTE | 2023-09-04 | XR_ITS ---
WS: [id number] INTRAOPERATIVE TECHNIQUE: 6 Spot fluoroscopic images for intraoperative purposes. FLUOROSCOPY TIME: 31 seconds CLINICAL INFORMATION: UBALDO PICS FINDINGS: Intraoperative changes revision lumbar fusion. Pedicle screw fixation with interconnecting rods exten ding from L1-S1. Bilateral sacroiliac fixation screws. Hardware appears in good position. Interbody f usion graft L3-L4 L4-L5 and L5-S1. IMPRESSION: Images obtained for intraoperative purposes.
[2023-09-04] MEDS: sodium chloride 0.9% 1,000 ML 30 ML IV (06:24)
--- NOTE | 2023-09-04 06:35 | W.PM.OPSUD ---
Surgery/Procedure H&P Update DATE OF PROCEDURE: September 04, 2023 DATE H&P PERFORMED: 08/29/23 H&P UPDATE INFORMATION: I have reviewed H&P completed within last 30 days, I have examined patient prior to procedure and No changes to prior documentation PREOP DIAGNOSIS: Lumbar stenosis with neurogenic claudication PLANNED PROCEDURE: Operation Date: 09/04/23 07:00 Proposed Procedures p Spinal Fusion(Not Applicable) - DO radha Jacobson Posterior Lumbar Interbody Fusion(Not Applicable) - DO radha Jacobson Sacroiliac Joint Fusion(Bilateral) - DO radha Jacobson Lumbopelvic Fixation(Not Applicable) - Sawyer Rock DO
[2023-09-04] MEDS: ceFAZolin 2,000 MG in sodium chloride 0.9% (plus) 50 ML 100 MG IV ×2 (07:00→11:28)
--- NOTE | 2023-09-04 07:55 | ANES.PREANE2 ---
Pre-Anesthetic Assessment Height/Weight: Height 1.83 m Weight 120.202 kg Temp Pulse Resp BP Pulse Ox O2 Del Method 97.2 F L 70 18 195/83 93 Room Air 09/04/23 06:04 09/04/23 06:04 09/04/23 06:04 09/04/23 06:04 09/04/23 06:04 09/04/23 06:11 Preop Diagnosis: Lumbar stenosis with neurogenic claudication Operation Date: 09/04/23 07:00 Proposed Procedures p Spinal Fusion(Not Applicable) - Sawyer Rock DO s Posterior Lumbar Interbody Fusion(Not Applicable) - Sawyer Rock DO s Sacroiliac Joint Fusion(Bilateral) - DO radha Jacobson Lumbopelvic Fixation(Not Applicable) - Sawyer Rock DO Familial anesthetic complications: None Was Beta Keo taken within 24 hours: N/A Was Clonidine taken within 24 hours: N/A Last intake: Intake Last Liquid Date 09/03/23 Last Liquid Time 17:00 Last Solid Date 09/03/23 Last Solid Time 17:00 Social No alcohol and No tobacco Exam alert, oriented x 3, clear to auscultation bilaterally and regular rate & rhythm Airway Mallampati: Class IV Dentition: other (mulitple missing) Comments: Comments: large yeh and neck and tongue Pulmonary Sleep Apnea (CPAP) Pickwickian syndrome on 2 L NC, patient informed of increased risk of prolonged intubation post-op due to poorer baseline respiratory status CV/HEM Hypertension Metabolic Diabetes Mellitus, Hyperlipidemia and Morbid Obesity Anesthetic Plan ASA status: 4 Anesthesia: General Risk of > 500 ml blood loss (7ml/kg in children): No Medications/Allergies Home Medications Medication Instructions Recorded Confirmed Last Taken Type amlodipine 10 mg tablet (Norvasc) 10 mg PO DAILY 03/12/20 09/03/23 09/03/23 History aspirin 81 mg tablet,delayed 81 mg PO DAILY 03/12/20 09/03/23 09/03/23 History release atorvastatin 20 mg tablet 20 mg PO QPM 03/12/20 09/03/23 1 Day Ago History ~09/02/23 gabapentin 300 mg capsule 600 mg PO TID 03/12/20 09/03/23 09/03/23 History ketoconazole 2 % shampoo See Rx Instructions .Route .COMPLEX 03/12/20 09/03/23 12/11/20 History losartan 100 mg tablet 100 mg PO DAILY 03/12/20 09/03/23 09/03/23 History multivitamin (Multiple Vitamins 1 tab PO DAILY 03/12/20 09/03/23 09/03/23 History tablet) omega 1-lbf-igk-fish oil 1,000 mg 1 cap PO DAILY 03/12/20 09/03/23 08/29/23 History (120 mg-180 mg) capsule (Fish Oil) trazodone 100 mg tablet 100 mg PO BEDTIME 03/12/20 09/03/23 1 Day Ago History ~09/02/23 ipratropium 20 mcg-albuterol 100 1 puff inhalation QID PRN wheezing 08/13/20 09/03/23 Unknown Rx mcg/actuation mist for inhalation #4 grams (Combivent Respimat) carvedilol 12.5 mg tablet 12.5 mg PO DIRECTED #135 tabs 09/11/21 09/03/23 09/03/23 Rx chlorthalidone 50 mg tablet 50 mg PO BID #180 tabs 09/11/21 09/03/23 Unknown Rx potassium chloride 20 mEq 20 meq PO DAILY 01/31/22 09/03/23 09/03/23 History tablet,extended release DME: Hospital bed #1 ea 08/31/22 08/12/23 Unknown Rx alogliptin 25 mg tablet 25 mg PO DAILY 10/10/22 09/03/23 09/03/23 History glipizide 10 mg tablet 10 mg PO BID 10/10/22 09/03/23 09/03/23 History meloxicam 15 mg tablet (Mobic) 15 mg PO DAILY 10/10/22 09/03/23 09/03/23 History Bone growth stimulator #1 ea 03/13/23 08/12/23 Unknown Rx ammonium lactate 12 % topical cream 1 applic topical DAILY #385 grams 04/10/23 09/03/23 Unknown Rx pioglitazone 15 mg tablet 30 mg PO DAILY 04/10/23 09/03/23 09/03/23 History docusate sodium 100 mg capsule 100 mg PO TID PRN Constipation 08/29/23 09/03/23 09/03/23 History empagliflozin 25 mg tablet 25 mg PO DAILY 08/29/23 09/03/2324 History metformin 500 mg tablet,extended 1,000 mg PO BID 08/29/23 09/03/23 09/03/23 History release 24 hr Allergies Allergy/AdvReac Type Severity Reaction Status Date / Time No Known Allergies Allergy Verified 09/03/23 12:17 Current Medications Generic Name Dose Route Start Last Admin Trade Name Francia PRN Reason Stop Dose Admin Sodium Chloride 1,000 mls @ 30 mls/hr 09/04/23 05:45 09/04/23 06:24 Sodium Chloride 0.9% IV 09/05/23 05:44 30 mls/hr .Q24H BUNNY Administration PFSH Anesthesia Medical History (Updated 08/14/23 @ 19:49 by DARIEL Lock) Primary localized osteoarthritis of left hip Bilateral hand pain Peripheral neuropathy Chronic back pain Hyperlipidemia Diabetes mellitus Hypertension Surgical History History of colonoscopy History of back surgery Hx of melanoma excision History of surgical removal of pilonidal cyst Hx of appendectomy Family History Other Cancer Social History Smoking and tobacco/nicotine status: never used tobacco/nicotine Second hand smoke exposure: Yes Alcohol intake: former Substance/Drug Use: never Lives independently: Yes Household members: spouse Housing: House Marital status: service: Yes Current occupational status: retired Pets and animals: Yes Do you think of yourself as: Straight/Heterosexual Current gender identity: Male Data Anesthesia Cardiac Studies: Echocardiogram 11/08/20 Echocardiogram Ultrasound 09/13/20 Transesophageal Echocardiogram 12/12/20
[2023-09-04] MEDS: heparin, porcine 1,000 unit/mL INJ 10 mL 10000 UNIT IRRIGATION (07:58)
[2023-09-04] MEDS: vancomycin 1,000 MG SDV 1000 MG XX (07:58)
[2023-09-04] MEDS: thrombin 5,000 unit SDV 5000 UNIT XX ×2 (07:59→10:08)
[2023-09-04] MEDS: lidocaine-epi 1% 20 mL INJ INJECTION (07:59)
--- NOTE | 2023-09-04 08:53 | PC.NURSE ---
PATIENT'S UPDATED AT 1056
--- NOTE | 2023-09-04 10:21 | PC.NURSE ---
patient's updated at [id number]
[2023-09-04 12:09] LABS: Glucose Point of Care 184 mg/dL (70-110)
[2023-09-04] MEDS: fentaNYL 50 mcg/mL INJ 2mL IVP ×2 (12:48→13:04)
--- NOTE | 2023-09-04 12:59 | PM.OP ---
Operative Report Date of procedure: September 04, 2023 Pre-op diagnosis: Lumbar stenosis with neurogenic claudication Post-op diagnosis: same Procedure done: 1.?L5/S1 interbody fusion with posterolateral fusion 2. Cage at L5/S1 3. Posterior fusion L1-pelvis 4.? Instrumentation L1-S1 5.? Lumbopelvic instrumentation 6. open right Sacral iliac fusion 7. open left sacral iliac fusion 8. L1/2 laminectomy with partial facetectomy 9. L2/3 laminectomy with partial facetectomy 10. use of computer navigation / stereotactic spine 11. use of autograft from same incision 12. allograft 13. Bone marrow aspirate from right iliac crest 14. revison spine surgery 15. Removal of hardware from the spine Surgeon: Sawyer Rock DO Estimated blood loss (mL): 500 Procedure: 1.?L5/S1 interbody fusion with posterolateral fusion 2. Cage at L5/S1 3. Posterior fusion L1-pelvis 4.? Instrumentation L1-S1 5.? Lumbopelvic instrumentation 6. open right Sacral iliac fusion 7. open left sacral iliac fusion 8. L1/2 laminectomy with partial facetectomy 9. L2/3 laminectomy with partial facetectomy 10. use of computer navigation / stereotactic spine 11. use of autograft from same incision 12. allograft 13. Bone marrow aspirate from right iliac crest 14. revison spine surgery 15. Removal of hardware from the spine Patient is brought to the operative suite.? After undergoing anesthesia, the patient had neuro monitoring attached.? Patient was then placed in the prone position on the Arnaldo table.? All areas of impingement were well-padded.? Patient was then prepped and draped in the normal sterile fashion.? Skin incision was then made over the L1 to the sacrum using previous skin incision.? Subperiosteal dissection was made out to the transverse processes of L1 bilaterally, L2 bilaterally, L3 bilaterally,?L4 bilaterally L5 bilaterally and sacral ala bilaterally.? The [employer] bone marrow aspirate kit was used to aspirate bone marrow aspirate.? This was done by using the sharp probe to open up the bone.? Aspiration was performed and then the blunt probe was then used to dissect down to through the bone tunnel.? An aspirating well drawn back a millimeter approximately 20 cc of bone marrow aspirate was used.? Admixed with the allograft and autograft bone that will be used. Next tension was brought to placing the fiducial for the computer navigation.? 2 pins were placed into the right iliac crest.? The fiducial was attached.? The C-arm was brought in and information from the C arm was then linked to the computer used for placing the screws.? Next attention was brought to placing the pedicle screws.? This was done by using the gearshift probe.? The probe was used to identify the pedicle.? Then the pedicle feeler was used followed by placement of screw.? This was done at L1 bilaterally, L2 bilaterally, L3 bilaterally L4 bilaterally, L5 bilaterally and S1 bilaterally. Next attension was brought to placing the iliac screws.? This was done using the sacral ala iliac technique.? The gearshift probe linked to computer navigation was then placed through the sacral ala into the sacroiliac joint into the iliac crest.? Next the pedicle feeler was used followed by the computer navigated tap.? And then the screw was passed a 90 mm screw was placed on the right side and a 70 mm screw was placed on the left side.? Both the screws were 9.5 mm in diameter. Next attension was brought to performing the open and sacral iliac fusion.? This was done by again using the gearshift probe linked to computer navigation.? Followed by pedicle feeler followed by placing a wire and then the drill drilled over the wire and then bone graft was packed into the sacroiliac joint and into the drill hole.? And the sacroiliac screw was then placed.? This technique was done on both the right and left side. Next attention was brought to performing the laminectomy of L5. This was done using the high-speed bur Kerrisons and curettes. Once the lamina was removed and then attention was brought to performing a partial facetectomy on the contralateral side. This was done again using the high-speed bur curettes and Kerrisons. The ligamentum flavum was taken down bilaterally from L5 to S1. Attention was then brought to the facet on the ipsilateral side. The facet was taken down. The s1 nerve was decompressed as it passed around the S1 pedicle. The laminectomy was done for purposes of decompressing the nerve as well as placement of the cage. The L5 nerve was identified as it traversed through the L5/s1 foramen. The thecal sac was identified and retracted. The L5/S1 disc base was identified. Using a knife the disc base was opened. And then sequential carmen were placed. The first shaver was a 6 and the last shaver was a 8. Using a pituitary and down going curette the endplates were scraped and disc material was removed from the space. Once adequate decompression of the disc base was felt to be had. Osteoamp sponge was packed into the anterior aspect of the disc base. Then a size 9 cage from [employer] was placed after packing osteoamp into the cage. While placing the cage the thecal sac and S1 nerve was protected. C arm was used to ensure that the cages placed in the appropriate position. Next attention was brought to the L2/3 laminectomy with partial facetectomy. This was done by performing the laminectomy using high-speed bur and taken on the medial aspect of facet joints. Kerrison was then used to take down the remaining lamina as well as the medial aspect of facet joints. Ligamentum flavum was taken down from L2/3. The L3 nerve root was traced around the L3 pedicle and the L2 nerve root was traced out the L2/3 foramen. On the left side the facet was taken down completely. There was scar tissue at the L2/3 level on the right side. Do not see a william dural tear however clear fluid came out will of this area. At the end of the case the patient DuraGen and DuraSeal was placed over this. Next attention was brought to the L1/2 laminectomy with partial facetectomy. This was done by performing the laminectomy using high-speed bur and taken on the medial aspect of facet joints. Kerrison was then used to take down the remaining lamina as well as the medial aspect of facet joints. Ligamentum flavum was taken down from L1/2. The L2 nerve root was traced around the L2 pedicle and the L1 nerve root was traced out the L1/2 foramen. On the left side the facet was taken down completely. The L4 nerve root was traced around the pedicle. Scar tissue was peeled off the nerve. Attention was then brought to attaching the rods to the screws placed in the L1 bilaterally, L2 bilaterally, L3 bilaterally, L4 bilaterally, L5 bilaterally and S1 bilaterally.? This was then attached to the sacroiliac screw providing the lumbopelvic fixation.? Caps were torqued into position. Locking the construct in place. Wound was copiously irrigated and then attention was brought to decorticating the facets and transverse processes laterally.? Bone that was taken down from the lamina was used along with osteoamp fibers and sponges were packed into the lateral gutters along the facet joints.? This was done bilaterally. Wound was then closed in a layered fashion starting with the thoracolumbar fascia.? 0-vicryl was used the sub cutaneous tissue was closed with 2-0 vicryl and skin with 4-0 monocryl.? Glue was then used to seal the skin and a steril dressing was applied.? Patient was then placed in the supine position. The endotracheal tube was removed and patient was transferred to the PACU in stable condition.
[2023-09-04] MEDS: HYDROmorphone 1 mg/mL INJ 1 mL 0.5 MG IVP (13:20)
--- NOTE | 2023-09-04 13:40 | ANE.PACU2 ---
Inpatient post-anesthesia follow up: Airway intact: Yes Vital signs: Temperature 97.1 F Pulse Rate 67 Respiratory Rate 18 Blood Pressure 119/68 Pulse Oximetry 91 Oxygen Delivery Me thod Nasal Cannula Oxygen Flow Rate 4 Fraction of Inspir ed Oxygen Hydration adequate: Yes Nausea and vomiting: No Pain level: 1 Mental status: Baseline
[2023-09-04] MEDS: gabapentin 300 mg Capsule 600 MG PO ×2 (14:32→21:56)
[2023-09-04] MEDS: vancomycin 1,500 MG/300 ML PIGGYBACK 200 MG IV (14:32)
[2023-09-04] MEDS: ketorolac 30 mg/mL INJ IVP (14:32)
[2023-09-04] MEDS: morphine 4 mg/mL SDV 1 mL 2 MG IVP (14:33)
[2023-09-04 15:08] LABS: Basophils % 0.1 %; Eosinophils % 0.1 %; Hematocrit 36.6 % (37-53); Lymphocytes # 0.4 10^3/uL (0.8-4.8); Lymphocytes % 5.2 %; Mean Corpuscular HGB Conc 33.6 g/dL (30-55); Mean Corpuscular Hemoglobin 29.8 pg (27-33); Mean Corpuscular Volume 88.6 fl (82-101); Mean Platelet Volume 9.4 fL (7.4-10.4); Monocytes # 0.2 10^3/uL (0.2-0.9); Monocytes % 2.8 %; Neutrophils # 7.03 10^3/uL (1.8-7.7); Neutrophils % 91.2 %; Nucleated Red Blood Cells % 0 %; Platelet Count 143 10^3/cmm (157-399); Red Blood Count 4.13 10^6/uL (3.85-5.65); Red Cell Distribution Width 12.8 % (12.1-15.1); White Blood Count 7.72 10^3/uL (3.29-11.43)
--- NOTE | 2023-09-04 15:08 | P.CONIM_ITS ---
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 Due to this he was started on vancomycin. Hospitalist service was consulted to assist with management of his chronic conditions. Postoperatively he is awake and alert, currently on 4 L of nasal cannula oxygen. States with that at rest breathing is comfortable. He is having back pain. His family noticed puffiness around his eyes and some bruising on the sides of his tongue. They also report that he has easy bleeding, he is on 81 mg aspirin at home, although reportedly without history of SC stenting or stroke, not on anticoagulation. Otherwise he did not have any additional acute medical problems preceding his surgery. He had followed up with pulmonology, he is chronically on 3 L nasal cannula oxygen at home during the day and 4 L fed into CPAP at night for KYLER. Review of Systems 2 Const: Denies: fever(s) ENMT: Denies: throat pain Card: Denies: chest pain, edema, pre-syncope or dyspnea on exertion Resp: Denies: dyspnea, productive cough, change in phlegm color or hemoptysis GI: Denies: abdominal pain, nausea, vomiting, diarrhea, constipation, hematochezia or melena : Denies: flank pain, difficulty urinating, urinary frequency or hematuria Musc: Reports: back pain; Denies: joint swelling or joint redness Skin/Breast: Denies: rash Neuro: Denies: headache(s) or dizziness Endo: Denies: polyuria or polydipsia Medications/Allergies Home Medications Medication Instructions Recorded Confirmed Last Taken Type amlodipine 10 mg tablet (Norvasc) 10 mg PO DAILY 03/12/20 09/03/23 09/03/23 History aspirin 81 mg tablet,delayed 81 mg PO DAILY 03/12/20 09/03/23 09/03/23 History release atorvastatin 20 mg tablet 20 mg PO QPM 03/12/20 09/03/23 1 Day Ago History ~09/02/23 gabapentin 300 mg capsule 600 mg PO TID 03/12/20 09/03/23 09/03/23 History ketoconazole 2 % shampoo See Rx Instructions .Route .COMPLEX 03/12/20 09/03/23 12/11/20 History losartan 100 mg tablet 100 mg PO DAILY 03/12/20 09/03/23 09/03/23 History multivitamin (Multiple Vitamins 1 tab PO DAILY 03/12/20 09/03/23 09/03/23 History tablet) omega 8-kzl-gvs-fish oil 1,000 mg 1 cap PO DAILY 03/12/20 09/03/23 08/29/23 History (120 mg-180 mg) capsule (Fish Oil) trazodone 100 mg tablet 100 mg PO BEDTIME 03/12/20 09/03/23 1 Day Ago History ~09/02/23 ipratropium 20 mcg-albuterol 100 1 puff inhalation QID PRN wheezing 08/13/20 09/03/23 Unknown Rx mcg/actuation mist for inhalation #4 grams (Combivent Respimat) carvedilol 12.5 mg tablet 12.5 mg PO DIRECTED #135 tabs 09/11/21 09/03/23 09/03/23 Rx chlorthalidone 50 mg tablet 50 mg PO BID #180 tabs 09/11/21 09/03/23 Unknown Rx potassium chloride 20 mEq 20 meq PO DAILY 01/31/22 09/03/23 09/03/23 History tablet,extended release DME: Hospital bed #1 ea 08/31/22 08/12/23 Unknown Rx alogliptin 25 mg tablet 25 mg PO DAILY 10/10/22 09/03/23 09/03/23 History glipizide 10 mg tablet 10 mg PO BID 10/10/22 09/03/23 09/03/23 History meloxicam 15 mg tablet (Mobic) 15 mg PO DAILY 10/10/22 09/03/23 09/03/23 History Bone growth stimulator #1 ea 03/13/23 08/12/23 Unknown Rx ammonium lactate 12 % topical cream 1 applic topical DAILY #385 grams 04/10/23 09/03/23 Unknown Rx pioglitazone 15 mg tablet 30 mg PO DAILY 04/10/23 09/03/23 09/03/23 History docusate sodium 100 mg capsule 100 mg PO TID PRN Constipation 08/29/23 09/03/23 09/03/23 History empagliflozin 25 mg tablet 25 mg PO DAILY 08/29/23 09/03/23 09/03/23 History metformin 500 mg tablet,extended 1,000 mg PO BID 08/29/23 09/03/23 09/03/23 History release 24 hr Allergies Allergy/AdvReac Type Severity Reaction Status Date / Time No Known Allergies Allergy Verified 09/03/23 12:17 Current Medications Generic Name Dose Route Start Last Admin Trade Name Freq PRN Reason Stop Dose Admin Gabapentin 600 mg 09/04/23 15:00 09/04/23 14:32 Gabapentin 300 Mg Capsule PO 600 mg TID BUNNY Administration Lactated Ringer's 1,000 mls @ 90 mls/hr 09/04/23 12:45 09/04/23 14:31 Lactated Ringers IV Not Given .Q11H7M BUNNY Vancomycin/PEG/NADA/Lysine/Water 1,500 mg in 300 mls @ 200 mls/hr 09/04/23 13:00 09/04/23 14:32 Vancocin IV 200 mls/hr Q12H BUNNY Administration Ketorolac Tromethamine 30 mg 09/04/23 12:36 09/04/23 14:32 Ketorolac 30 Mg/Ml Inj IVP 30 mg Q6H PRN Administration BREAKTHROUGH PAIN Morphine Sulfate 2 mg 09/04/23 12:39 09/04/23 14:33 Morphine 4 Mg/Ml Sdv 1 Ml IVP 2 mg Q1H PRN Administration SEVERE PAIN PFSH Acute 2 PFSH: Medical History Primary localized osteoarthritis of left hip Bilateral hand pain Peripheral neuropathy Chronic back pain Hyperlipidemia Diabetes mellitus Hypertension Surgical History History of colonoscopy History of back surgery Hx of melanoma excision History of surgical removal of pilonidal cyst Hx of appendectomy Family History Other Cancer Social History Smoking and tobacco/nicotine status: never used tobacco/nicotine Second hand smoke exposure: Yes Alcohol intake: former Substance/Drug Use: never Lives independently: Yes Household members: spouse Housing: House Marital status: service: Yes Current occupational status: retired Pets and animals: Yes Do you think of yourself as: Straight/Heterosexual Current gender identity: Male Vitals/I&O/Wt Last Vital Signs Temp 97.1 F L 09/04/23 13:42 Pulse 67 09/04/23 14:27 Resp 16 09/04/23 14:33 BP 119/68 09/04/23 13:42 Pulse Ox 91 09/04/23 14:27 O2 Del Method Nasal Cannula 09/04/23 14:27 O2 Flow Rate 4 09/04/23 14:27 09/04/23 09/04/23 09/04/23 06:59 14:59 22:59 Intake Total 3200 / 3200 Output Total 1300 / 1300 Balance 1900 / 1900 Weight last 48 hrs Weight 120.202 kg Weight 120.202 kg Physical Exam 2 Narrative: Accompanied by family. Const: COMMON NORMALS: patient oriented x3 and alert GENERAL APPEARANCE: c ooperative NUTRITIONAL APPEARANCE: obese ORIENTATION/CONSCIOUSNESS: Yes awake HENMT: COMMON NORMALS: oropharynx normal Eye: OTHER: Moderate periorbital edema Neck/C-Spine: COMMON NORMALS: no JVD Resp: AUSCULTATION: diminished lung sounds Cardio: COMMON NORMALS: no JVD, regular rhythm, S1 normal heart sound present, S2 normal heart sound present and No murmurs present (Cardio) RHYTHM: regular rhythm HEART SOUNDS: S1 normal heart sound present and S2 normal heart sound present GI: COMMON NORMALS: Normal to inspection, nondistended, normoactive bowel sounds present, Soft to palpation and non-tender PALPATION: Yes Soft to palpation Back/Pelvis: OTHER: Surgical drain Extremity: COMMON NORMALS: no joint enlargement and no pedal edema Neuro: COMMON NORMALS: patient oriented x3 and moves all extremities S ENSORIUM/ORIENTATION: Yes alert Skin: COMMON NORMALS: no rashes or lesions noted GENERAL SKIN EXAM: no rashes or lesions noted Urinary Catheter Management: Teague: Cath Placed During This Visit: yes Urinary Catheter Date of Insertion: 09/04/23 Urinary Catheter Time of Insertion: 07:28 Data 09/04/23 15:00 09/04/23 15:00 A&P Assessment and plan (1) Fusion of spine of lumbar region: Continue postoperative care. Reviewed vitals, CBC, CMP from July. Requesting CBC and CMP follow-up. Reviewed orthopedic note, discussed with orthopedic surgery. Discussed with family. Overall uneventful procedure, EBL reported 500 mL, will follow-up CBC for anemia. He did have a sebaceous cyst versus small pustule encountered when closing the wound with some purulent discharge and was started on vancomycin. Continues on antibiotic. Orthopedics following for any signs of wound infection. Lung sounds do sound diminished and he is on slightly more oxygen than usual 4 L. Will obtain chest x-ray. With periorbital edema, positive balance, will give a small dose of Lasix 20 mg IV. Monitor oxygenation. With IV Lasix at risk of electrolyte abnormality, will reassess chemistry. As per discussion with orthopedics no VT prophylaxis anticoagulation till tomorrow. Discussed with nursing staff to connect SCDs. Continue pain control, acetaminophen, hydrocodone, Toradol, IV morphine for breakthrough pain which she has so far required. Monitor oxygenation. Mental status. Naloxone in case of respiratory depression. Teague catheter currently still in place as he is not mobile and at risk of urinary retention at the moment. (2) Hypoxia: He is unable to provide much history, currently still recovering from anesthesia and in pain. History obtained from family. Chronic hypoxia 3 L, at night 4 L bled into CPAP for KYLER. Current hypoxia thought to be possibly secondary to agent orange exposure. Had been following up with pulmonology. Continue follow-up. Will add DuoNebs. Additionally will give a small dose of Lasix as he Oxygen requirement is worse than usual, diminished lung sounds, positive balance and periorbital edema. (3) Chronic lung disease: Continue oxygen support, follow-up with pulmonology. (4) Diabetes mellitus: Accu-Cheks, sliding scale insulin. Oral hypoglycemics held while in the hospital. Change diet to consist carb. (5) Hypertension: Currently blood pressure is at goal, monitor blood pressure. Qualifiers: Hypertension type: unspecified Qualified Code(s): I10 - Essential (primary) hypertension (6) Hyperlipidemia: Continue statin. Plan KYLER: He had followed up with pulmonology, he is chronically on 3 L nasal cannula oxygen at home during the day and 4 L fed into CPAP at night for KYLER. Peripheral neuropathy Osteoarthritis Consult Attestations 2 Medical Necessity Statement: Continue admission for assessment management following lumbar spine fusion and gentleman with acute on chronic hypoxia multiple underlying comorbidities as above. and High MDM includes amount and/or complexity of data reviewed/ordered [ previous or external records, resulted lab(s)/test(s), ordered lab(s)/test(s), independent historian and other healthcare professional discussion] and described risk of complication, morbidity or mortality of management as documented Diagnoses Fusion of spine of lumbar region M43.26 Hypoxia R09.02 Chronic lung disease J98.4 Diabetes mellitus E11.9 Hypertension, unspecified type I10 Hypertension type: unspecified Hyperlipidemia E78.5
[2023-09-04] MEDS: ipratropium-albuterol 3 mL Neb INHALATION ×2 (15:31→20:20)
[2023-09-04 15:34] LABS: Alanine Aminotransferase 19 U/L (0-41); Alkaline Phosphatase 107 U/L (40-130); Anion Gap 16.5 (5-19); Aspartate Amino Transferase 28 U/L (0-40); Blood Urea Nitrogen 16 mg/dL (8-23); Calcium 8.5 mg/dL (8.5-10.5); Carbon Dioxide 24 mmol/L (22-29); Chloride 104 mmol/L (98-107); Creatinine Clr Calc Pharmacy 106.7995; Globulin 2.3 g/dL (1.3-4.6); Glucose 233 mg/dL (65-115); Osmolality Calculated 301 mOsm/kg (285-295); Potassium 3.5 mmol/L (3.5-5.1); Sodium 141 mmol/L (136-145); Total Bilirubin 0.5 mg/dL (0.15-1.2); Total Protein 6.3 g/dL (6.6-8.7)
--- NOTE | 2023-09-04 15:59 | XRR_ITS ---
PROCEDURE INFORMATION: Exam: XR Chest Exam date and time: 09/04/2023 3:34 PM Age: 77 years old Clinical indication: Shortness of breath; Additional info: Hypoxia TECHNIQUE: Imaging protocol: Radiologic exam of the chest. Views: 1 view. COMPARISON: CT angio chest PE protcl [id number] 09/13/2020 2:07 PM FINDINGS: Lungs: No focal consolidation. Pleural spaces: No evidence of pneumothorax. No evidence of pleural effusion. Heart/Mediastinum: Cardiomediastinal silhouette is within normal limits. Bones/joints: No evidence of acute osseous abnormality. XR/XR chest 1V portable [id number] IMPRESSION: 1. No acute cardiopulmonary abnormality.
[2023-09-04] MEDS: FUROsemide 10 mg/mL SDV 2mL 20 MG IVP (16:27)
[2023-09-04] MEDS: HYDROcodone-acetaminophen 5-325 mg Tablet PO (16:28)
[2023-09-04] MEDS: docusate sodium 100 mg Capsule PO (17:09)
[2023-09-04] MEDS: atorvastatin 40 mg Tablet 20 MG PO (17:09)
[2023-09-04] MEDS: chlorthalidone 25 mg Tablet 50 MG PO (17:09)
[2023-09-04 21:02] LABS: Glucose Point of Care 297 mg/dL (70-110)
[2023-09-04] MEDS: insulin lispro 100 unit/1 mL SUBCUT (21:56)
[2023-09-04] MEDS: trazodone 100 mg Tablet PO (21:56)
[2023-09-05] VITALS (7 sets, daily range): BP systolic 129–154; BP diastolic 73–74; PULSE 76–98; RESP 16–17; TEMP 36.9–37.2; O2SAT 91–92; BMI 39.1
[2023-09-05] MEDS: vancomycin 1,500 MG/300 ML PIGGYBACK 200 MG IV (00:29)
[2023-09-05 05:46] LABS: Basophils % 0.3 %; Eosinophils % 0.3 %; Hematocrit 34.2 % (37-53); Lymphocytes # 0.7 10^3/uL (0.8-4.8); Lymphocytes % 8.9 %; Mean Corpuscular HGB Conc 32.7 g/dL (30-55); Mean Corpuscular Hemoglobin 29.2 pg (27-33); Mean Corpuscular Volume 89.1 fl (82-101); Mean Platelet Volume 9.7 fL (7.4-10.4); Monocytes # 0.7 10^3/uL (0.2-0.9); Monocytes % 9.2 %; Neutrophils # 6.25 10^3/uL (1.8-7.7); Neutrophils % 80.8 %; Nucleated Red Blood Cells % 0 %; Platelet Count 164 10^3/cmm (157-399); Red Blood Count 3.84 10^6/uL (3.85-5.65); Red Cell Distribution Width 13.4 % (12.1-15.1); White Blood Count 7.73 10^3/uL (3.29-11.43)
[2023-09-05 06:09] LABS: Blood Urea Nitrogen 19 mg/dL (8-23); Calcium 8.4 mg/dL (8.5-10.5); Carbon Dioxide 25 mmol/L (22-29); Chloride 102 mmol/L (98-107); Creatinine Clr Calc Pharmacy 94.9329; Glucose 178 mg/dL (65-115); Osmolality Calculated 299 mOsm/kg (285-295); Sodium 141 mmol/L (136-145)
[2023-09-05 06:10] LABS: Anion Gap 17.5 (5-19); Potassium 3.5 mmol/L (3.5-5.1)
[2023-09-05] MEDS: HYDROcodone-acetaminophen 5-325 mg Tablet PO ×2 (07:19→11:45)
[2023-09-05 07:37] LABS: Glucose Point of Care 201 mg/dL (70-110)
--- NOTE | 2023-09-05 07:44 | P.DS_ITS ---
Discharge Providers Date of Admission: 09/04/23 11:50 Date of Discharge: September 05, 2023 Attending Provider at Admission: Sawyer Rock DO Attending Provider at Discharge: Sawyer Rock DO Primary Care Provider: Sid Schafer DO Diagnoses at Discharge Discharge Diagnosis (1) Fusion of spine of lumbar region: Status: Acute (2) Hypoxia: Status: Acute (3) Chronic lung disease: Status: Acute (4) Diabetes mellitus: Status: Acute (5) Hypertension: Status: Acute Qualifiers: Hypertension type: unspecified Qualified Code(s): I10 - Essential (primary) hypertension (6) Hyperlipidemia: Status: Acute Reason for Visit Reason for Visit: M43.26 Physical Exam Narrative: Patient is doing well sitting up in bed. Little discomfort in his back but otherwise feeling good. Has not been up with physical therapy yet. Plan will be to get him up with physical therapy if he does well with physical therapy we will discharge today. Urinary Catheter Management: Teague: Cath Placed During This Visit: yes Reason for Continuing Indwelling Catheter: Acute Urinary Retention or Obstruction Urinary Catheter Date of Insertion: 09/04/23 Urinary Catheter Time of Insertion: 07:28 Discharge Data Studies Completed and Pending Completed Studies During Hospitalization Category Date Time Status CXRP [XR chest 1V portable [id number]] Routine Exams 09/04/23 15:59 Completed Pending at discharge Category Date Time Status XR lumbar spine 2-3V* [id number] Routine Exams 09/04/23 00:00 Taken Basic Metabolic Panel AM LABS Lab 09/06/23 04:00 Ordered Basic Metabolic Panel AM LABS Lab 09/07/23 04:00 Ordered Complete Blood Count w/Auto AM LABS Lab 09/06/23 04:00 Ordered Complete Blood Count w/Auto AM LABS Lab 09/07/23 04:00 Ordered Radiology Impressions Chest X-Ray 09/04/23 15:59 IMPRESSION: 1. No acute cardiopulmonary abnormality. Laboratory Results WBC 7.73 10^3/uL (3.29-11.43) 09/05/23 05:28 RBC 3.84 10^6/uL (3.85-5.65) L 09/05/23 05:28 Hgb 11.20 g/dL (11.27-16.99) L 09/05/23 05:28 Hct 34.2 % (37-53) L 09/05/23 05:28 MCV 89.1 fl (82-101) 09/05/23 05:28 MCH 29.2 pg (27-33) 09/05/23 05:28 MCHC 32.7 g/dL (30-55) 09/05/23 05:28 RDW 13.4 % (12.1-15.1) 09/05/23 05:28 Plt Count 164 10^3/cmm (157-399) 09/05/23 05:28 MPV 9.7 fL (7.4-10.4) 09/05/23 05:28 Neut % (Auto) 80.8 % 09/05/23 05:28 Lymph % (Auto) 8.9 % 09/05/23 05:28 Cataño % (Auto) 9.2 % 09/05/23 05:28 Eos % (Auto) 0.3 % 09/05/23 05:28 Baso % (Auto) 0.3 % 09/05/23 05:28 Neut # (Auto) 6.25 10^3/uL (1.8-7.7) 09/05/23 05:28 Lymph # (Auto) 0.7 10^3/uL (0.8-4.8) L 09/05/23 05:28 Cataño # (Auto) 0.7 10^3/uL (0.2-0.9) 09/05/23 05:28 Eos # (Auto) 0.0 10^3/uL (0.0-0.8) 09/05/23 05:28 Baso # (Auto) 0.0 10^3/uL (0.0-0.1) 09/05/23 05:28 Nucleated RBC % (auto) 0 % 09/05/23 05:28 Nucleated RBCs # 0.0 /100WBC 09/05/23 05:28 Sodium 141 mmol/L (136-145) 09/05/23 05:28 Potassium 3.5 mmol/L (3.5-5.1) 09/05/23 05:28 Chloride 102 mmol/L (98-107) 09/05/23 05:28 Carbon Dioxide 25 mmol/L (22-29) 09/05/23 05:28 Anion Gap 17.5 (5-19) 09/05/23 05:28 BUN 19 mg/dL (8-23) 09/05/23 05:28 Creatinine 0.9 mg/dL (0.7-1.2) 09/05/23 05:28 GFR Calculation Not Reportable 09/05/23 05:28 Glucose 178 mg/dL (65-115) H 09/05/23 05:28 POC Glucose 201 mg/dL (70-110) H 09/05/23 07:12 Calculated Osmolality 299 mOsm/kg (285-295) H 09/05/23 05:28 Calcium 8.4 mg/dL (8.5-10.5) L 09/05/23 05:28 Total Bilirubin 0.5 mg/dL (0.15-1.2) 09/04/23 15:00 AST 28 U/L (0-40) 09/04/23 15:00 ALT 19 U/L (0-41) 09/04/23 15:00 Alkaline Phosphatase 107 U/L (40-130) 09/04/23 15:00 Total Protein 6.3 g/dL (6.6-8.7) L 09/04/23 15:00 Albumin 4.0 g/dL (3.5-5.2) 09/04/23 15:00 Globulin 2.3 g/dL (1.3-4.6) 09/04/23 15:00 Blood Type O Positive 09/04/23 06:22 Rho(D) Type Rh positive 09/04/23 06:22 Antibody Screen Negative 09/04/23 06:22 Vitals Last Vital Signs Temp 98.7 F 09/05/23 04:00 Pulse 85 09/05/23 04:00 Resp 17 09/05/23 04:00 BP 154/73 09/05/23 04:00 Pulse Ox 91 09/05/23 04:00 O2 Del Method CPAP 09/05/23 04:00 O2 Flow Rate 4 09/04/23 20:23 Discharge Plan Discharge Patient Disposition: Home Condition: Stable Prescriptions: New Bactrim DS 800-160 mg tablet 1 tab PO BID 28 Days Qty: 56 0RF hydrocodone-acetaminophen 5-325 mg tablet 1 - 2 tab PO .Q4-6H Qty: 40 0RF Continued chlorthalidone 50 mg tablet 50 mg PO BID Qty: 180 3RF carvedilol 12.5 mg tablet 12.5 mg PO DIRECTED Qty: 135 3RF Rx Instructions: 12.5mg in AM & 6.25mg in PM potassium chloride 20 mEq tablet extended release 20 meq PO DAILY metformin 500 mg tablet extended release 24 hr 1,000 mg PO BID docusate sodium 100 mg capsule 100 mg PO TID PRN (Reason: Constipation) empagliflozin 25 mg tablet 25 mg PO DAILY pioglitazone 15 mg tablet 30 mg PO DAILY ammonium lactate 12 % cream 1 applic topical DAILY Qty: 385 2RF multivitamin [Multiple Vitamins] Tablet 1 tab PO DAILY atorvastatin 20 mg Tablet 20 mg PO QPM ketoconazole 2 % Shampoo See Rx Instructions .ROUTE .COMPLEX Rx Instructions: as directed pt states he usually uses every other day aspirin 81 mg Tablet,Delayed Release (Dr/Ec) 81 mg PO DAILY trazodone 100 mg Tablet 100 mg PO BEDTIME amlodipine [Norvasc] 10 mg Tablet 10 mg PO DAILY gabapentin 300 mg Capsule 600 mg PO TID losartan 100 mg Tablet 100 mg PO DAILY omega 3-tmi-qzq-fish oil [Fish Oil] 1,000 mg (120 mg-180 mg) Capsule 1 cap PO DAILY alogliptin 25 mg tablet 25 mg PO DAILY glipizide 10 mg tablet 10 mg PO BID meloxicam [Mobic] 15 mg tablet 15 mg PO DAILY Combivent Respimat 20-100 mcg/actuation mist 1 puff inhalation QID PRN (Reason: wheezing) Qty: 4 0RF Rx Instructions: space evenly during waking hours Discharge Orders: Discharge Order (Routine); Ordered 09/05/23 Ordered By: Sawyer Rock Discharge Diet: Advance as tolerated Discharge Activity: Limit activity as instructed Patient Instructions: Opioid Safety Activity Restrictions/Additional Instructions: Take antibiotic as prescribed Thank you for [facility] for your care! The following is a list of instructions, from your provider, to follow upon your discharge to ensure you have the optimal recovery from your recent injury orsurgery. Follow-up care is a godinez part of your treatment and safety. Be sure to make and go to all appointments, and call your doctor if you are having problems. If you do not already have a follow-up appointment made, call Dr. Rock office in the next 1-3 days to make follow up appointment for 1 weeks at [phone]. It is also a good idea to know your test results and keep a list of the medicines you take. Medications will be prescribed for you at your provider's discretion. These medications are to be used as instructed; if they are taken more often that prescribed they will not be refilled early and in most cases will not be r efilled at all. > When a refill is needed,you should contact [facility] 2-3 business days before your prescription runs out. Medications will NOT be refilled by administrative receptionist providers after hours! > Many pain medications contain Tylenol (Acetaminophen). Do not consume more than 4,000 mg of Tylenol per day in total with any combination ofmedications. > Pain medications can cause constipation. Please use an over the counter stool softener as directed, while taking pain medications. Consulty our local pharmacist with questions or recommendations on stool softeners. If constipation persists, contact our office or your primary care provider. > While under our care,you are not to receive pain medications or other controlled substances from any other provider unless our office is notified and approves. Any attempts to do so will result in refusal to prescribe any further pain medications and possible dismissal from our practice. ? Your wound and/or dressing should remain clean and dry for 7 days after surgery. On postoperative day 7 we will change dressing in the office. It is okay to shower and get the incision wet. Pad dry afterwards. No further dressing should be required from that point on. Do not put any creams or ointments on theincision > It is normal for there to be a small amount of discharge (bloody or blood tinged) present from a surgical wound for the first 1-3days. > The wound should be examined twice a day for signs of infection. Mild redness or bruising is to be expected but indications that an infection maybe starting would include; An increase in redness, swelling, or discharge, a foul odor present around the incision, and/or a fever greater than 101 ?F ? Showering is permitted, however we ask that you do not take a bath, sit in a whirlpool / Jacuzzi, or go swimming for 1 month. For only the first 2 days after surgery, lt wilt be necessary for you to cover your wound/dressing with plastic and tape to keep it dry. ? Walking is essential for the healing process after surgery. We would like you to slowly advance your walking. This should be done on relatively flat clear ground (inside or out) or can be done on a treadmill. Remember this goal does not have to happen all at once, slowly increase your distance and duration. This can be broken into more more than one walk per day as tolerated. Patients who walk as directed after surgery rarely require Physical Therapy. In the unlikely event this issue arises your provider will direct hospital staff to make the appropriate arrangements. ? No lifting over 5 pounds {a gallon of milk) or bending/twisting until further notice. Each of these activities places an unnecessary amount of stress onto the body and can impede the delicate healing process. > Instead of bending at the waist, keep your back straight and bend at the knees. > Instead of twisting your torso, keep your back straight and turn your entire body with your feet. ? You may sleep in any position which makes you comfortable. Many patients find comfort sleeping in a reclining chair. It is not abnormal to have difficulty sleeping for the first several weeks following your surgery. We recommend trying Benadry! or Tylenol PM as directed to help with your sleeping difficulties. Both medications are over the counter and available withoutprescription. ? NO SMOKING!!! Smoking dramatically increases the probability of developing postoperative wound infections. ? Common complaints after lumbar and/or thoracic spine surgery include, but are not limited to: numbness and/or tingling in the legs, pain around the incision and surrounding tissues, muscle spasms, or stiffness of the middle to low back. Contact our office if these symptoms persist or if an acute change occurs. ? No driving for the first 3-5days, and not while taking narcotics until seen at your follow-up appointment and cleared. There are no restrictions for riding on short trips, however if you take a longer trip, arrangements should be made to make regular stops to get out of the vehicle and stretch . ? Swelling is an unfortunate event that will take place with any surgery and is the primary source of your postoperative discomfort. While walking and regular approved activities helps control inflammation, there are additional steps you can take to minimizeswelling. > Place ice over the surgical site and surrounding tissue for twenty minutes, followed by applying a low/medium heat (heating pad) for an additional twenty minutes every 1-2 hours as needed for painrelief. > You may use of over the counter anti-inflammatory medications (Ibuprofen, Motrin, Aleve, Advil, etc) as directed on the package label. These types of medicines wm significantly reduce the amount of discomfort you experience after surgery from swelling. It should be noted that if you have and allergy to any of these medications, or a history of ulcers or kidney disease you should consult you primary care provider prior to starting these medications. Discharge Attestations Time Spent in Discharge Care*: less than 30 min Quality Metrics Clinical Quality Measures [ No reported AMI, CVA or VTE this stay] Coding Level of Care Code Acute Code for Chg Fwd Diagnoses Fusion of spine of lumbar region M43.26 Hypoxia R09.02 Chronic lung disease J98.4 Diabetes mellitus E11.9 Hypertension, unspecified type I10 Hypertension type: unspecified Hyperlipidemia E78.5
[2023-09-05] MEDS: ipratropium-albuterol 3 mL Neb INHALATION (08:31)
[2023-09-05] MEDS: insulin lispro 100 unit/1 mL SUBCUT ×2 (09:11→11:46)
[2023-09-05] MEDS: potassium chloride ER 20 mEq Tablet PO (09:12)
[2023-09-05] MEDS: carvedilol 12.5 mg Tablet PO (09:12)
[2023-09-05] MEDS: losartan 50 mg Tablet 100 MG PO (09:12)
[2023-09-05] MEDS: multivitamin therapeutic Tablet 1 TAB PO (09:12)
[2023-09-05] MEDS: gabapentin 300 mg Capsule 600 MG PO (09:12)
[2023-09-05] MEDS: chlorthalidone 25 mg Tablet 50 MG PO (09:12)
[2023-09-05] MEDS: docusate sodium 100 mg Capsule PO (09:12)
[2023-09-05] MEDS: pioglitazone 30 mg Tablet PO (09:12)
[2023-09-05] MEDS: amlodipine 10 mg Tablet PO (09:12)
[2023-09-05] MEDS: omega-3 fatty acids 1,000 mg Capsule 1000 MG PO (09:12)
[2023-09-05] MEDS: ammonium lactate lotion 226 gm Btl 1 APPLIC TOPICAL (10:56)
[2023-09-05 11:11] LABS: Glucose Point of Care 258 mg/dL (70-110)
--- NOTE | 2023-09-05 12:50 | P.PN_ITS ---
Subjective 2 Subjective: Reports he is doing well today. Pain under control. He is worried his legs might swell up if he keeps them down for a long time. Vitals/I&O/Wt Last Vital Signs Temp 98.5 F 09/05/23 08:00 Pulse 92 09/05/23 08:40 Resp 16 09/05/23 08:34 BP 129/74 09/05/23 12:34 Pulse Ox 92 09/05/23 08:34 O2 Del Method Nasal Cannula 09/05/23 08:34 O2 Flow Rate 4 09/05/23 08:34 09/04/23 09/05/23 09/05/23 22:59 06:59 14:59 Intake Total 900 / 4100 360 / 4460 240 / 240 Output Total / 5 1000 / 3025 50 / 50 Balance 175 / 5 -640 / 1435 190 / 190 Weight last 48 hrs Weight 130.907 kg Weight 120.202 kg Weight 120.202 kg Physical Exam 2 Narrative: Sitting up in chair. Const: COMMON NORMALS: patient oriented x3 and alert GENERAL APPEARANCE: c ooperative NUTRITIONAL APPEARANCE: obese ORIENTATION/CONSCIOUSNESS: Yes awake HENMT: COMMON NORMALS: oropharynx normal Eye: OTHER: Moderate periorbital edema Neck/C-Spine: COMMON NORMALS: no JVD Resp: AUSCULTATION: diminished lung sounds Cardio: COMMON NORMALS: no JVD, regular rhythm, S1 normal heart sound present, S2 normal heart sound present and No murmurs present (Cardio) RHYTHM: regular rhythm HEART SOUNDS: S1 normal heart sound present and S2 normal heart sound present GI: COMMON NORMALS: Normal to inspection, nondistended, normoactive bowel sounds present, Soft to palpation and non-tender PALPATION: Yes Soft to palpation Back/Pelvis: OTHER: Surgical drain Extremity: COMMON NORMALS: no joint enlargement and no pedal edema Neuro: COMMON NORMALS: patient oriented x3 and moves all extremities S ENSORIUM/ORIENTATION: Yes alert Skin: COMMON NORMALS: no rashes or lesions noted GENERAL SKIN EXAM: no rashes or lesions noted Urinary Catheter Management: Teague: Cath Placed During This Visit: yes Reason for Continuing Indwelling Catheter: Acute Urinary Retention or Obstruction Urinary Catheter Date of Insertion: 09/04/23 Urinary Catheter Time of Insertion: 07:28 Data 09/05/23 05:28 09/05/23 05:28 A&P Assessment and plan (1) Fusion of spine of lumbar region: He is overall doing well postoperatively. Reviewed vitals, CBC, CMP, orthopedic note. Spinal drain has been removed, Teague was requested for removal as well and he is being prepared for discharge per orthopedics with follow-up in office. Discussed with family service caseworker. (2) Hypoxia: Improvement in edema with 20 mg IV Lasix. IV fluids have been discontinued. He will be discharging today, resuming home dose chlorthalidone. He was able to use his home CPAP overnight. Encouraged to continue use at home. Discussed with family service caseworker. He is unable to provide much history, currently still recovering from anesthesia and in pain. History obtained from family. Chronic hypoxia 3 L, at night 4 L bled into CPAP for KYLER. Current hypoxia thought to be possibly secondary to agent orange exposure. Had been following up with pulmonology. Continue follow-up. Will add DuoNebs. Additionally will give a small dose of Lasix as he Oxygen requirement is worse than usual, diminished lung sounds, positive balance and periorbital edema. (3) Chronic lung disease: Continue oxygen support, follow-up with pulmonology. (4) Diabetes mellitus: Accu-Cheks, sliding scale insulin. Oral hypoglycemics held while in the hospital. Change diet to consist carb. (5) Hypertension: Currently blood pressure is at goal, monitor blood pressure. Qualifiers: Hypertension type: unspecified Qualified Code(s): I10 - Essential (primary) hypertension (6) Hyperlipidemia: Continue statin. Plan KYLER: He had followed up with pulmonology, he is chronically on 3 L nasal cannula oxygen at home during the day and 4 L fed into CPAP at night for KYLER. Peripheral neuropathy Osteoarthritis Attestations 2 Medical Necessity Statement*: Returning home. Diagnoses Fusion of spine of lumbar region M43.26 Hypoxia R09.02 Chronic lung disease J98.4 Diabetes mellitus E11.9 Hypertension, unspecified type I10 Hypertension type: unspecified Hyperlipidemia E78.5
== END 2023-09-05 12:35 | disposition home or self-care (01) | DRG 455 ==
LOC: MEDSURG 12:50
PROVIDERS: Internal Medicine; Admitting Provider Orthopaedic Surgery; PCP Emergency Medicine Emergency Medical Services; Visit Provider Orthopaedic Surgery
PROC: 0SG30AJ Fusion of Lumbosacral Joint with Interbody Fusion Device, Posterior Approach, Anterior Column, Open Approach (ICD-10-PCS; principal; 2023-09-04 07:00)
PROC: 0SG30AJ Fusion of Lumbosacral Joint with Interbody Fusion Device, Posterior Approach, Anterior Column, Open Approach (ICD-10-PCS; CPT 22612; 2023-09-04 07:00)
PROC: 0SG30AJ Fusion of Lumbosacral Joint with Interbody Fusion Device, Posterior Approach, Anterior Column, Open Approach (ICD-10-PCS; CPT 27280; 2023-09-04 07:00)
PROC: 0SG30AJ Fusion of Lumbosacral Joint with Interbody Fusion Device, Posterior Approach, Anterior Column, Open Approach (ICD-10-PCS; 2023-09-04 07:00)
DX: M48.062 Spinal stenosis, lumbar region with neurogenic claudication (principal); I10 Essential (primary) hypertension; E78.5 Hyperlipidemia, unspecified; E11.42 Type 2 diabetes mellitus with diabetic polyneuropathy; G47.33 Obstructive sleep apnea (adult) (pediatric); M16.12 Unilateral primary osteoarthritis, left hip; G89.29 Other chronic pain; R60.9 Edema, unspecified; R09.02 Hypoxemia; Z79.82 Long term (current) use of aspirin; Z79.84 Long term (current) use of oral hypoglycemic drugs; Z99.81 Dependence on supplemental oxygen; Z57.4 Occupational exposure to toxic agents in agriculture; Z85.820 Personal history of malignant melanoma of skin
CPT/HCPCS: 36415; 36416; 51702; 71045; 72100; 76000; 80048; 80053; 82962; 85025; 86850; 86900; 94640; 94660; 96372; 97116; 97161; C1713; C1762; C9359; J0131; J0330; J0690; J1100; J1170; J1644; J1815; J1885; J1940; J2270; J2371; J2405; J2704; J3010; J3370; J3490; J7030; P9045

== ENCOUNTER → 2023-09-17 07:40 | Outpatient (BNVA) | payer MEDICARE, OTHER, SELFPAY | PROVIDERS: PCP Emergency Medicine Emergency Medical Services; Visit Provider Orthopaedic Surgery | DX: M43.26 Fusion of spine, lumbar region (principal) | CPT/HCPCS: 99024 ==

== ENCOUNTER → 2023-10-16 09:59 | Outpatient (BNVA) | payer OTHER, SELFPAY | PROVIDERS: PCP Emergency Medicine Emergency Medical Services; Visit Provider Internal Medicine Pulmonary Disease | DX: R06.02 Shortness of breath (principal); I10 Essential (primary) hypertension; R09.02 Hypoxemia | CPT/HCPCS: 99214 ==

== ENCOUNTER → 2023-10-17 07:25 | Outpatient (BNVA) | payer OTHER, SELFPAY | PROVIDERS: PCP Emergency Medicine Emergency Medical Services; Visit Provider Orthopaedic Surgery | DX: M43.26 Fusion of spine, lumbar region (principal) | CPT/HCPCS: 72100; 99024 ==

== ENCOUNTER → 2023-11-07 09:45 | Outpatient (BNVA) | payer MEDICARE, OTHER, SELFPAY | PROVIDERS: PCP Emergency Medicine Emergency Medical Services; Visit Provider Orthopaedic Surgery | DX: M43.26 Fusion of spine, lumbar region (principal) | CPT/HCPCS: 72100; 99024 ==

== ENCOUNTER 2023-11-29 12:31 | Outpatient (CLI) | payer MEDICARE, OTHER, SELFPAY ==
--- NOTE | 2023-11-29 13:30 | CTR_ITS ---
PROCEDURE INFORMATION: Exam: CT Lumbar Spine Without Contrast Exam date and time: 11/29/2023 12:54 PM Age: 78 years old Clinical indication: Low back pain; Prior surgery; Surgery date: 1-6 months; Surgery type: Fusion 09/04/23; Additional info: M43.26 - fusion of spine, lumbar region TECHNIQUE: Imaging protocol: Computed tomography of the lumbar spine without contrast. Radiation optimization: All CT scans at this facility use at least one of these dose optimization techniques: automated exposure control; mA and/or kV adjustment per patient size (includes targeted exams where dose is matched to clinical indication); or iterative reconstruction. COMPARISON: MR lumbar spine wo con* [id number] 09/21/2022 8:50 AM RADIATION DOSE METRICS: Total DLP (mGy-cm): 1010.04 FINDINGS: Bones/joints: There has been previous surgical fusion of the L1 through S1 vertebrae. Interbody fusion has been performed the L3-L4, L4-L5 and L5-S1. Dorsal fusion has been achieved by bilateral pedicle screws and paraspinal rods. Dorsal lateral graft fragments are also. The sacroiliac joints are fused bilaterally. There has extensive dorsal decompression spine. Lucency seen surrounding the right L1 pedicle screw which may reflect loosening or other hardware related complication. There is anterolisthesis at L4-L5. Diffuse lumbar spondylosis is noted. Neural foraminal stenosis is seen at the lower lumbar levels. Kidneys and ureters: There is bilateral nonobstructing nephrolithiasis. Soft tissues: Intermediate density seen in the dorsal operative bed. No clearly defined fluid collection identified. CT/CT lumbar spine wo con* [id number] IMPRESSION: 1. Previous extensive dorsal decompression and multilevel fusion involving the L1 through S1 vertebrae, as well as bilateral sacroiliac fusion. 2. Lucency surrounding the right L1 pedicle may reflect loosening or other hardware related complication. 3. Intermediate density in the dorsal operative bed, should be correlated with surgical history and clinical information. No clearly defined fluid collection demonstrated by CT. 4. Nonobstructing nephrolithiasis bilaterally.
== END 2023-11-29 12:32 | disposition home or self-care (01) ==
LOC: RAD 12:32
PROVIDERS: PCP Emergency Medicine Emergency Medical Services; Visit Provider Orthopaedic Surgery
DX: M43.16 Spondylolisthesis, lumbar region (principal); M43.26 Fusion of spine, lumbar region; M43.28 Fusion of spine, sacral and sacrococcygeal region; N20.0 Calculus of kidney
CPT/HCPCS: 72131

== ENCOUNTER 2023-12-05 13:48 | Outpatient (CLI) | payer MEDICARE, OTHER, SELFPAY ==
[2023-12-05 14:55] LABS: Blood Urea Nitrogen 12 mg/dL (8-23)
[2023-12-05] MEDS: iohexol 350 mg/mL 500 mL Btl (per mL) IV (15:19)
== END 2023-12-05 13:49 | disposition home or self-care (01) ==
LOC: RAD 13:48
PROVIDERS: PCP Emergency Medicine Emergency Medical Services; Visit Provider Orthopaedic Surgery
DX: M43.26 Fusion of spine, lumbar region (principal)
CPT/HCPCS: 72132; 82565; 84520; Q9967

== ENCOUNTER → 2023-12-10 13:19 | Outpatient (BNVA) | payer MEDICARE, OTHER, SELFPAY | PROVIDERS: PCP Emergency Medicine Emergency Medical Services; Visit Provider Orthopaedic Surgery | DX: M43.26 Fusion of spine, lumbar region (principal); Z09 Encounter for follow-up examination after completed treatment for conditions other than malignant neoplasm | CPT/HCPCS: 36415; 80053; 81003; 85025; 99214 ==

== ENCOUNTER 2024-01-08 11:00 | Inpatient (IN) | payer MEDICARE, OTHER, SELFPAY ==
[2024-01-08] VITALS (20 sets, daily range): BP systolic 145–199; BP diastolic 60–90; PULSE 18–88; RESP 16–18; TEMP 36.3–37.1; O2SAT 91–97; BMI 35.9
--- NOTE | 2024-01-08 | XR_ITS ---
WS: [id number] Lumbar spine, C-arm fluoroscopy views, 01/08/2024 Clinical Data: UBALDO PICS Comparison: Lumbar spine, 11/07/2023 Findings: Dr. Rock revised the left SI joint fusion. XR/XR lumbar spine 2-3V* [id number] Impression: Revision of posterior lumbosacral fusion.
[2024-01-08] MEDS: sodium chloride 0.9% 1,000 ML 30 ML IV (07:39)
[2024-01-08 07:44] LABS: Glucose Point of Care 127 mg/dL (70-110)
--- NOTE | 2024-01-08 08:55 | ANES.PREANE2 ---
Pre-Anesthetic Assessment Height/Weight: Height 1.83 m Weight 120.202 kg Temp Pulse Resp BP Pulse Ox O2 Del Method 97.3 F L 59 L 18 160/72 97 Room Air 01/08/24 07:27 01/08/24 07:27 01/08/24 07:27 01/08/24 07:27 01/08/24 07:27 01/08/24 07:28 Preop Diagnosis: Painful hardware Operation Date: 01/08/24 09:10 Proposed Procedures p Hardware Removal Back Hardware removal of iliac screw(Not Applicable) - Sawyer Rock, DO Familial anesthetic complications: Last surgery sides of tongue became darkly discolored/black and mildly to moderate swollen for a few weeks, pictures produced indicate patient had bitten down on the sides of his tongue intraoperatively causing bruising/black discoloration Was Beta Keo taken within 24 hours: Yes Was Clonidine taken within 24 hours: N/A Last intake: Intake Last Liquid Date 01/07/24 Last Liquid Time 16:00 Last Solid Date 01/07/24 Last Solid Time 16:00 Social No alcohol and No tobacco Airway Mallampati: Class IV Dentition: other (many missing teeth, more gone now than during the surgery where his tongue was probably bitten) Comments: Comments: large full yeh and large tongue Pulmonary Chronic Obstructive Pulmonary Disease and Sleep Apnea [place] on 4 L NC CV/HEM Hypertension Metabolic Diabetes Mellitus and Hyperlipidemia Anesthetic Plan ASA status: 4 Anesthesia: General Risk of > 500 ml blood loss (7ml/kg in children): No Medications/Allergies Home Medications Medication Instructions Recorded Confirmed Last Taken Type amlodipine 10 mg tablet (Norvasc) 10 mg PO DAILY 03/12/20 01/07/24 01/07/24 History aspirin 81 mg tablet,delayed 81 mg PO DAILY 03/12/20 01/07/24 01/07/24 History release atorvastatin 20 mg tablet 20 mg PO QPM 03/12/20 01/07/24 01/07/24 History gabapentin 300 mg capsule 600 mg PO TID 03/12/20 01/07/24 01/07/24 History ketoconazole 2 % shampoo See Rx Instructions .Route .COMPLEX 03/12/20 01/07/24 12/11/20 History losartan 100 mg tablet 100 mg PO DAILY 03/12/20 01/07/24 01/06/24 History multivitamin (Multiple Vitamins 1 tab PO DAILY 03/12/20 01/07/24 01/06/24 History tablet) omega 8-fij-uyj-fish oil 1,000 mg 1 cap PO DAILY 03/12/20 01/07/24 01/06/24 History (120 mg-180 mg) capsule (Fish Oil) trazodone 100 mg tablet 100 mg PO BEDTIME 03/12/20 01/07/24 01/06/24 History carvedilol 12.5 mg tablet 12.5 mg PO DIRECTED #135 tabs 09/11/21 01/08/24 01/08/24 05:00 Rx chlorthalidone 50 mg tablet 50 mg PO BID #180 tabs 09/11/21 01/08/24 01/08/24 05:00 Rx potassium chloride 20 mEq 20 meq PO TID 01/31/22 01/07/24 01/06/24 History tablet,extended release glipizide 10 mg tablet 10 mg PO BID 10/10/22 01/07/24 01/06/24 History meloxicam 15 mg tablet (Mobic) 15 mg PO DAILY 10/10/22 01/07/24 01/06/24 History ammonium lactate 12 % topical cream 1 applic topical DAILY #385 grams 04/10/23 01/07/24 Unknown Rx pioglitazone 15 mg tablet 30 mg PO DAILY 04/10/23 01/07/24 01/06/24 History docusate sodium 100 mg capsule 100 mg PO TID PRN Constipation 08/29/23 01/07/24 01/06/24 History empagliflozin 25 mg tablet 25 mg PO DAILY 08/29/23 01/07/24 01/06/24 History metformin 500 mg tablet,extended 1,000 mg PO BID 08/29/23 01/07/24 01/06/24 History release 24 hr [place] Dressing #1 ea 09/11/23 01/07/24 Unknown Rx cyanocobalamin (vitamin B-12) 500 500 mcg PO DAILY 01/07/24 01/07/24 01/07/24 History mcg tablet hydrocodone 5 mg-acetaminophen 325 1 tab PO Q4H PRN pain 7 days #40 01/07/24 01/08/24 01/08/24 05:00 Rx mg tablet tabs sitagliptin 100 mg tablet 100 mg PO DAILY 01/07/24 01/07/24 01/06/24 History Allergies Allergy/AdvReac Type Severity Reaction Status Date / Time No Known Allergies Allergy Verified 01/08/24 07:23 Current Medications Generic Name Dose Route Start Last Admin Trade Name Khanhq PRN Reason Stop Dose Admin Sodium Chloride 1,000 mls @ 30 mls/hr 01/08/24 07:30 01/08/24 07:39 Sodium Chloride 0.9% IV 01/09/24 07:29 30 mls/hr .Q24H BUNNY Administration PFSH Anesthesia Medical History Primary localized osteoarthritis of left hip Bilateral hand pain Peripheral neuropathy Chronic back pain Hyperlipidemia Diabetes mellitus Hypertension Surgical History History of colonoscopy History of back surgery Hx of melanoma excision History of surgical removal of pilonidal cyst Hx of appendectomy Family History Other Cancer Social History Smoking and tobacco/nicotine status: former use of tobacco/nicotine Second hand smoke exposure: Yes Alcohol intake: former Substance/Drug Use: never Lives independently: Yes Household members: spouse Housing: House Marital status: service: Yes Current occupational status: retired Pets and animals: Yes Do you think of yourself as: Straight/Heterosexual Current gender identity: Male Data Anesthesia Cardiac Studies: Echocardiogram 11/08/20 Echocardiogram Ultrasound 09/13/20 Transesophageal Echocardiogram 12/12/20
--- NOTE | 2024-01-08 09:09 | W.PM.OPSUD ---
Surgery/Procedure H&P Update DATE OF PROCEDURE: January 08, 2024 DATE H&P PERFORMED: 01/07/24 H&P UPDATE INFORMATION: I have reviewed H&P completed within last 30 days, I have examined patient prior to procedure and No changes to prior documentation PREOP DIAGNOSIS: Painful hardware PLANNED PROCEDURE: Operation Date: 01/08/24 09:10 Proposed Procedures p Hardware Removal Back Hardware removal of iliac screw(Not Applicable) - Sawyer Rock DO
[2024-01-08] MEDS: ceFAZolin 2,000 MG in sodium chloride 0.9% (plus) 50 ML 100 MG IV (09:49)
[2024-01-08] MEDS: lidocaine-epi 1% PF 1:200,000 30 mL SDV INJECTION (11:03)
[2024-01-08] MEDS: vancomycin 1,000 MG SDV 1000 MG INTRA-ARTI (11:03)
--- NOTE | 2024-01-08 11:14 | PM.OP ---
Operative Report Date of procedure: January 08, 2024 Pre-op diagnosis: Painful hardware lumbar spine Post-op diagnosis: same Procedure done: Removal of deep hardware from lumbar spine Surgeon: Sawyer Rock DO Estimated blood loss (mL): 10 Procedure: Removal of deep hardware from lumbar spine Patient brought the operative suite after undergoing anesthesia placed in the prone position. All areas appear well-padded. Patient's prepped draped also fashion. Skin incision made over the bottom part of the incision. Subperiosteal dissection was made down to the sacrum and out laterally. The iliac screw and the S1 screw were identified. High-speed bur was used to cut through the metal jennyfer. This was done between the S1 screw and the iliac screw. Next the cap was removed from the iliac screw. The jennyfer was removed that was cut off. And then the screw was backed out. Wounds irrigated. Fluoroscopy was brought in to ensure the screws removed. Wound was then closed after being part is placed in a layered fashion with 0 Vicryl 2-0 Vicryl Monocryl suture. Sterile dressings applied patient transferred to the PACU in stable condition.
[2024-01-08] MEDS: hyDRALAzine 20 mg/mL INJ 1 mL 5 MG IVP (12:30)
--- NOTE | 2024-01-08 12:35 | ANE.PACU2 ---
Inpatient post-anesthesia follow up: Airway intact: Yes Vital signs: Temperature 97.6 F Pulse Rate 73 Respiratory Rate 17 Blood Pressure 173/69 Pulse Oximetry 91 Oxygen Delivery Me thod Nasal Cannula Oxygen Flow Rate 4 Fraction of Inspir ed Oxygen Hydration adequate: Yes Nausea and vomiting: No Pain level: 1 Mental status: Baseline
[2024-01-08] MEDS: HYDROcodone-acetaminophen 10-325 mg Tablet PO ×2 (14:57→21:08)
[2024-01-08] MEDS: lactated ringers 1,000 ML 90 ML IV (14:57)
[2024-01-08] MEDS: potassium chloride ER 20 mEq Tablet PO ×2 (14:57→21:08)
[2024-01-08] MEDS: gabapentin 300 mg Capsule 600 MG PO ×2 (14:57→21:09)
[2024-01-08] MEDS: ceFAZolin 2,000 mg SDV 2000 MG IVP (18:08)
[2024-01-08] MEDS: atorvastatin 40 mg Tablet 20 MG PO (18:09)
[2024-01-08] MEDS: docusate sodium 100 mg Capsule PO (18:10)
[2024-01-08] MEDS: carvedilol 6.25 mg Tablet PO (18:10)
[2024-01-08] MEDS: chlorthalidone 25 mg Tablet 50 MG PO (18:15)
[2024-01-08] MEDS: metformin XR 500 MG Tablet 1000 MG PO (18:15)
[2024-01-08] MEDS: trazodone 100 mg Tablet PO (21:08)
[2024-01-09] MEDS: ceFAZolin 2,000 mg SDV 2000 MG IVP ×2 (01:27→08:15)
[2024-01-09] MEDS: lactated ringers 1,000 ML 90 ML IV (01:28)
[2024-01-09] MEDS: HYDROcodone-acetaminophen 10-325 mg Tablet PO ×3 (01:30→10:41)
[2024-01-09 05:22] VITALS: BP 138/65; PULSE 50; RESP 18; TEMP 36.4; O2SAT 93
[2024-01-09 06:26] LABS: Glucose Point of Care 167 mg/dL (70-110)
--- NOTE | 2024-01-09 07:38 | PM.DCS ---
Discharge Providers Date of Admission: 01/08/24 12:13 Date of Discharge: January 09, 2024 Attending Provider at Admission: Sawyer Rock DO Attending Provider at Discharge: Sawyer Rock DO Primary Care Provider: Milana Kim MD Reason for Visit Reason for Visit: M43.26 Physical Exam Narrative: Patient is sitting in bed comfortable at this time pain controlled. Plan will be to discharge him today. Urinary Catheter Management: Teague: Cath Placed During This Visit: yes, but has since been removed by the nurse Reason for Continuing Indwelling Catheter: Decision to DC Catheter Urinary Catheter Date of Insertion: 01/08/24 Urinary Catheter Time of Insertion: 10:31 Date Urinary Catheter Removed: 01/09/24 Time Urinary Catheter Discontinued: 05:26 Discharge Data Studies Completed and Pending Pending at discharge Category Date Time Status C-arm Fluoroscopy [id number] Routine Exams 01/08/24 07:17 Taken Laboratory Results POC Glucose 167 mg/dL (70-110) H 01/09/24 06:20 Vitals Last Vital Signs Temp 97.6 F 01/09/24 05:22 Pulse 50 L 01/09/24 05:22 Resp 18 01/09/24 05:22 BP 138/65 01/09/24 05:22 Pulse Ox 93 01/09/24 05:22 O2 Del Method Nasal Cannula 01/08/24 17:10 O2 Flow Rate 4 01/08/24 22:49 Discharge Plan Discharge Patient Disposition: Home Condition: Stable Prescriptions: New hydrocodone-acetaminophen 10-325 mg tablet 1 tab PO Q4H PRN (Reason: pain) 7 Days Qty: 40 0RF Continued chlorthalidone 50 mg tablet 50 mg PO BID Qty: 180 3RF carvedilol 12.5 mg tablet 12.5 mg PO DIRECTED Qty: 135 3RF Rx Instructions: 12.5mg in AM & 6.25mg in PM potassium chloride 20 mEq tablet extended release 20 meq PO TID metformin 500 mg tablet extended release 24 hr 1,000 mg PO BID docusate sodium 100 mg capsule 100 mg PO TID PRN (Reason: Constipation) empagliflozin 25 mg tablet 25 mg PO DAILY (DME) [place] Dressing 4 inch x 8 inch See Rx Instructions .Route .MEDSUPPLY Qty: 1 0RF Rx Instructions: As directed cyanocobalamin (vitamin B-12) 500 mcg tablet 500 mcg PO DAILY sitagliptin 100 mg tablet 100 mg PO DAILY pioglitazone 15 mg tablet 30 mg PO DAILY ammonium lactate 12 % cream 1 applic topical DAILY Qty: 385 2RF multivitamin [Multiple Vitamins] Tablet 1 tab PO DAILY atorvastatin 20 mg Tablet 20 mg PO QPM ketoconazole 2 % Shampoo See Rx Instructions .ROUTE .COMPLEX Rx Instructions: as directed pt states he usually uses every other day aspirin 81 mg Tablet,Delayed Release (Dr/Ec) 81 mg PO DAILY trazodone 100 mg Tablet 100 mg PO BEDTIME amlodipine [Norvasc] 10 mg Tablet 10 mg PO DAILY gabapentin 300 mg Capsule 600 mg PO TID losartan 100 mg Tablet 100 mg PO DAILY omega 6-myr-pgn-fish oil [Fish Oil] 1,000 mg (120 mg-180 mg) Capsule 1 cap PO DAILY glipizide 10 mg tablet 10 mg PO BID meloxicam [Mobic] 15 mg tablet 15 mg PO DAILY Discontinued hydrocodone-acetaminophen 5-325 mg tablet 1 tab PO Q4H PRN (Reason: pain) 7 Days Qty: 40 0RF Discharge Orders: Discharge Order (Routine); Ordered 01/09/24 Ordered By: Sawyer Rock Discharge Diet: Advance as tolerated Discharge Activity: Limit activity as instructed Patient Instructions: Acute Wound Care (DC), Opioid Safety, Post Anesthesia Care Activity Restrictions/Additional Instructions: Thank you for [facility] for your care! The following is a list of instructions, from your provider, to follow upon your discharge to ensure you have the optimal recovery from your recent injury orsurgery. Follow-up care is a godinez part of your treatment and safety. Be sure to make and go to all appointments, and call your doctor if you are having problems. If you do not already have a follow-up appointment made, call Dr. Rock office in the next 1-3 days to make follow up appointment for 2 weeks at [phone]. It is also a good idea to know your test results and keep a list of the medicines you take. Medications will be prescribed for you at your provider's discretion. These medications are to be used as instructed; if they are taken more often that prescribed they will not be refilled early and in most cases will not be refilled at all. > When a refill is needed,you should contact [facility] 2-3 business days before your prescription runs out. Medications will NOT be refilled by [employer] providers after hours! > Many pain medications contain Tylenol (Acetaminophen). Do not consume more than 4,000 mg of Tylenol per day in total with any combination ofmedications. > Pain medications can cause constipation. Please use an over the counter stool softener as directed, while taking pain medications. Consulty our local pharmacist with questions or recommendations on stool softeners. If constipation persists, contact our office or your primary care provider. > While under our care,you are not to receive pain medications or other controlled substances from any other provider unless our office is notified and approves. Any attempts to do so will result in refusal to prescribe any further pain medications and possible dismissal from our practice. ? Your wound and/or dressing should remain clean and dry for 2 days after surgery. On postoperative day 2 (48 hours after your surgery) the dressing (if present) should be removed and it is okay to shower and get the incision wet. Pad dry afterwards. No further dressing should be required from that point on. Do not put any creams or ointments on theincision > It is normal for there to be a small amount of discharge (bloody or blood tinged) present from a surgical wound for the first 1-3days. > The wound should be examined twice a day for signs of infection. Mild redness or bruising is to be expected but indications that an infection maybe starting would include; An increase in redness, swelling, or discharge, a foul odor present around the incision, and/or a fever greater than 101 ?F ? Showering is permitted, however we ask that you do not take a bath, sit in a whirlpool / Jacuzzi, or go swimming for 1 month. For only the first 2 days after surgery, lt wilt be necessary for you to cover your wound/dressing with plastic and tape to keep it dry. ? Walking is essential for the healing process after surgery. We would like you to slowly advance your walking. This should be done on relatively flat clear ground (inside or out) or can be done on a treadmill. Remember this goal does not have to happen all at once, slowly increase your distance and duration. This can be broken into more more than one walk per day as tolerated. Patients who walk as directed after surgery rarely require Physical Therapy. In the unlikely event this issue arises your provider will direct hospital staff to make the appropriate arrangements. ? No lifting over 5 pounds {a gallon of milk) or bending/twisting until further notice. Each of these activities places an unnecessary amount of stress onto the body and can impede the delicate healing process. > Instead of bending at the waist, keep your back straight and bend at the knees. > Instead of twisting your torso, keep your back straight and turn your entire body with your feet. ? You may sleep in any position which makes you comfortable. Many patients find comfort sleeping in a reclining chair. It is not abnormal to have difficulty sleeping for the first several weeks following your surgery. We recommend trying Benadry! or Tylenol PM as directed to help with your sleeping difficulties. Both medications are over the counter and available withoutprescription. ? NO SMOKING!!! Smoking dramatically increases the probability of developing postoperative wound infections. ? Common complaints after lumbar and/or thoracic spine surgery include, but are not limited to: numbness and/or tingling in the legs, pain around the incision and surrounding tissues, muscle spasms, or stiffness of the middle to low back. Contact our office if these symptoms persist or if an acute change occurs. ? No driving for the first 3-5days, and not while taking narcotics until seen at your follow-up appointment and cleared. There are no restrictions for riding on short trips, however if you take a longer trip, arrangements should be made to make regular stops to get out of the vehicle and stretch . ? Swelling is an unfortunate event that will take place with any surgery and is the primary source of your postoperative discomfort. While walking and regular approved activities helps control inflammation, there are additional steps you can take to minimizeswelling. > Place ice over the surgical site and surrounding tissue for twenty minutes, followed by applying a low/medium heat (heating pad) for an additional twenty minutes every 1-2 hours as needed for painrelief. > You may use of over the counter anti-inflammatory medications (Ibuprofen, Motrin, Aleve, Advil, etc) as directed on the package label. These types of medicines wm significantly reduce the amount of discomfort you experience after surgery from swelling. It should be noted that if you have and allergy to any of these medications, or a history of ulcers or kidney disease you should consult you primary care provider prior to starting these medications. Discharge Attestations Time Spent in Discharge Care*: less than 30 min Quality Metrics Clinical Quality Measures [ No reported AMI, CVA or VTE this stay] Coding Level of Care Code Acute Code for Chg Desmond
[2024-01-09 08:00] VITALS: BP 145/63; PULSE 56; RESP 18; TEMP 36.6; O2SAT 97
[2024-01-09] MEDS: sitagliptin 100 mg Tablet PO (08:12)
[2024-01-09] MEDS: chlorthalidone 25 mg Tablet 50 MG PO (08:12)
[2024-01-09] MEDS: metformin XR 500 MG Tablet 1000 MG PO (08:12)
[2024-01-09] MEDS: meloxicam 7.5 mg tablet 15 MG PO (08:12)
[2024-01-09] MEDS: carvedilol 12.5 mg Tablet PO (08:13)
[2024-01-09] MEDS: potassium chloride ER 20 mEq Tablet PO (08:13)
[2024-01-09] MEDS: docusate sodium 100 mg Capsule PO (08:13)
[2024-01-09] MEDS: pioglitazone 30 mg Tablet PO (08:13)
[2024-01-09] MEDS: multivitamin therapeutic Tablet 1 TAB PO (08:13)
[2024-01-09] MEDS: cyanocobalamin 1,000 mcg Tablet 500 MCG PO (08:13)
[2024-01-09 08:14] VITALS: BP 145/63
[2024-01-09] MEDS: amlodipine 10 mg Tablet PO (08:14)
[2024-01-09] MEDS: gabapentin 300 mg Capsule 600 MG PO (08:14)
[2024-01-09] MEDS: aspirin 81 mg EC Tablet PO (08:14)
[2024-01-09] MEDS: losartan 50 mg Tablet 100 MG PO (08:14)
[2024-01-09] MEDS: omega-3 fatty acids 1,000 mg Capsule 1000 MG PO (08:14)
[2024-01-09] MEDS: ammonium lactate lotion 226 gm Btl 1 APPLIC TOPICAL (08:35)
[2024-01-09 09:00] VITALS: PULSE 56; RESP 18; O2SAT 97
== END 2024-01-09 12:37 | disposition home health service (06) | DRG 497 ==
LOC: MEDSURG 12:15
PROVIDERS: Admitting Provider Orthopaedic Surgery; PCP Family Medicine; Visit Provider Orthopaedic Surgery
PROC: 5A09357 Assistance with Respiratory Ventilation, Less than 24 Consecutive Hours, Continuous Positive Airway Pressure (ICD-10-PCS; principal; 2024-01-08 09:10)
DX: T84.84XA Pain due to internal orthopedic prosthetic devices, implants and grafts, initial encounter (principal); Y99.9 Unspecified external cause status; E11.42 Type 2 diabetes mellitus with diabetic polyneuropathy; Z79.84 Long term (current) use of oral hypoglycemic drugs; I10 Essential (primary) hypertension; E78.5 Hyperlipidemia, unspecified; Z79.82 Long term (current) use of aspirin; Z87.891 Personal history of nicotine dependence; G89.29 Other chronic pain; M54.9 Dorsalgia, unspecified; M16.12 Unilateral primary osteoarthritis, left hip
CPT/HCPCS: 36416; 51702; 72100; 76000; 82962; 94660; 97116; 97161; 97530; 99213; J0330; J0360; J0690; J1100; J2405; J2704; J3010; J3370; J3490; J7030; J7120

== ENCOUNTER → 2024-01-30 15:14 | Outpatient (BNVA) | payer MEDICARE, OTHER, SELFPAY | PROVIDERS: PCP Family Medicine; Visit Provider Orthopaedic Surgery | DX: M43.26 Fusion of spine, lumbar region (principal) | CPT/HCPCS: 72100; 99024 ==

== ENCOUNTER → 2024-02-27 14:29 | Outpatient (BNVA) | payer MEDICARE, OTHER, SELFPAY | PROVIDERS: PCP Family Medicine; Visit Provider Orthopaedic Surgery | DX: M54.9 Dorsalgia, unspecified (principal); G89.29 Other chronic pain | CPT/HCPCS: 72100; 99024 ==

== ENCOUNTER → 2024-04-07 12:36 | Outpatient (BNVA) | payer MEDICARE, OTHER, SELFPAY | PROVIDERS: PCP Family Medicine; Visit Provider Orthopaedic Surgery | DX: M54.9 Dorsalgia, unspecified (principal); G89.29 Other chronic pain; M43.26 Fusion of spine, lumbar region | CPT/HCPCS: 72100; 99024 ==

== ENCOUNTER → 2024-05-06 07:41 | Outpatient (BNVA) | payer OTHER, SELFPAY | PROVIDERS: PCP Family Medicine; Visit Provider Nurse Practitioner | DX: M16.12 Unilateral primary osteoarthritis, left hip (principal); Z01.818 Encounter for other preprocedural examination; M25.552 Pain in left hip; M54.42 Lumbago with sciatica, left side; M54.41 Lumbago with sciatica, right side; G89.29 Other chronic pain | CPT/HCPCS: 36415; 73502; 80053; 81001; 85025; 87086; 93005; 99214 ==

== ENCOUNTER 2024-05-07 10:37 | Observation (INO) | payer OTHER, MEDICARE, SELFPAY ==
[2024-05-07] VITALS (18 sets, daily range): BP systolic 118–175; BP diastolic 64–95; PULSE 52–76; RESP 14–18; TEMP 36.3–37; O2SAT 94–98; BMI 34.3
[2024-05-07] MEDS: sodium chloride 0.9% 1,000 ML 30 ML IV (06:19)
[2024-05-07] MEDS: acetaminophen 1,000 MG/100 ML PIGGYBACK 400 MG IV ×2 (06:19→14:04)
[2024-05-07] MEDS: gabapentin 300 mg Capsule PO (06:20)
[2024-05-07] MEDS: CELEcoxib 200 mg Capsule 400 MG PO (06:20)
--- NOTE | 2024-05-07 06:31 | ANES.PREANE2 ---
Pre-Anesthetic Assessment Height/Weight: Height 6 ft Weight 253 lb Temp Pulse Resp BP Pulse Ox O2 Del Method O2 Flow Rate 97.4 F L 52 L 18 161/66 97 Room Air 3.5 05/07/24 06:02 05/07/24 06:02 05/07/24 06:02 05/07/24 06:02 05/07/24 06:02 05/07/24 06:05 05/07/24 06:02 Preop Diagnosis: Hip arthritis Operation Date: 05/07/24 08:15 Proposed Procedures p Total Hip Arthroplasty(Left) - Adeline Paredes MD Was Beta Keo taken within 24 hours: N/A Was Clonidine taken within 24 hours: N/A Last intake: Intake Last Liquid Date 05/06/24 Last Liquid Time 17:00 Last Solid Date 05/06/24 Last Solid Time 17:00 Social No alcohol and No tobacco Exam alert, oriented x 3, clear to auscultation bilaterally and regular rate & rhythm Airway Submandibular: within normal limits Cervical ROM: within normal limits Mallampati: Class III Dentition: false Anesthetic Plan ASA status: 3 Anesthesia: General Other: No prior issues with anesthesia NPO since yesterday Patient denies COPD but uses inhalers and is on 3-1/2 to 4 L O2 at baseline History of hypertension on chlorthalidone, amlodipine, losartan and carvedilol. BB taken today. Preop BP 161/66 Type 2 diabetes not on insulin Labs reviewed 05/06/2024 and acceptable for procedure. K+ 3.4, hemoglobin 11.4 Multiple prior back surgeries EKG sinus rhythm with first-degree AV block Plan for general anesthesia Medications/Allergies Home Medications Medication Instructions Recorded Confirmed Last Taken Type amlodipine 10 mg tablet (Norvasc) 10 mg PO DAILY 03/12/20 05/07/24 05/07/24 04:30 History aspirin 81 mg tablet,delayed 81 mg PO DAILY 03/12/20 05/06/24 05/06/24 History release atorvastatin 20 mg tablet 20 mg PO QPM 03/12/20 05/06/24 05/06/24 History gabapentin 300 mg capsule 600 mg PO TID 03/12/20 05/06/24 05/06/24 History ketoconazole 2 % shampoo See Rx Instructions .Route .COMPLEX 03/12/20 05/06/24 05/06/24 History losartan 100 mg tablet 100 mg PO DAILY 03/12/20 05/06/24 05/06/24 History multivitamin (Multiple Vitamins 1 tab PO DAILY 03/12/20 05/07/24 05/06/24 History tablet) omega 1-mhn-arh-fish oil 1,000 mg 1 cap PO DAILY 03/12/20 05/06/24 05/05/24 History (120 mg-180 mg) capsule (Fish Oil) trazodone 100 mg tablet 100 mg PO BEDTIME 03/12/20 05/06/24 05/06/24 History carvedilol 12.5 mg tablet 12.5 mg PO DIRECTED #135 tabs 09/11/21 05/07/24 05/07/24 04:30 Rx chlorthalidone 50 mg tablet 50 mg PO BID #180 tabs 09/11/21 05/06/24 05/06/24 Rx potassium chloride 20 mEq 20 meq PO TID 01/31/22 05/06/24 05/06/24 History tablet,extended release glipizide 10 mg tablet 10 mg PO BID 10/10/22 05/07/24 05/06/24 12:00 History meloxicam 15 mg tablet (Mobic) 15 mg PO DAILY 10/10/22 05/06/24 05/06/24 History ammonium lactate 12 % topical cream 1 applic topical DAILY #385 grams 04/10/23 05/06/24 05/05/24 Rx pioglitazone 15 mg tablet 30 mg PO DAILY 04/10/23 05/06/24 05/06/24 History docusate sodium 100 mg capsule 100 mg PO TID PRN Constipation 08/29/23 05/06/24 05/06/24 History empagliflozin 25 mg tablet 25 mg PO DAILY 08/29/23 05/06/24 01/06/24 History metformin 500 mg tablet,extended 1,000 mg PO BID 08/29/23 05/06/24 05/06/24 History release 24 hr [place] Dressing #1 ea 09/11/23 05/06/24 Unknown Rx cyanocobalamin (vitamin B-12) 500 500 mcg PO DAILY 01/07/24 05/06/24 05/06/24 History mcg tablet sitagliptin 100 mg tablet 100 mg PO DAILY 01/07/24 05/06/24 05/06/24 History Allergies Allergy/AdvReac Type Severity Reaction Status Date / Time No Known Allergies Allergy Verified 05/07/24 05:50 Current Medications Generic Name Dose Route Start Last Admin Trade Name Francia PRN Reason Stop Dose Admin Sodium Chloride 1,000 mls @ 30 mls/hr 05/07/24 06:00 05/07/24 06:19 Sodium Chloride 0.9% IV 05/08/24 05:59 30 mls/hr .Q24H BUNNY Administration PFSH Anesthesia Medical History Primary localized osteoarthritis of left hip Bilateral hand pain Peripheral neuropathy Chronic back pain Hyperlipidemia Diabetes mellitus Hypertension Surgical History History of colonoscopy History of back surgery Hx of melanoma excision History of surgical removal of pilonidal cyst Hx of appendectomy Family History Other Cancer Social History Smoking and tobacco/nicotine status: never used tobacco/nicotine Second hand smoke exposure: Yes Alcohol intake: former Substance/Drug Use: never Lives independently: Yes Household members: spouse Housing: House Marital status: service: Yes Current occupational status: retired Pets and animals: Yes Do you think of yourself as: Straight/Heterosexual Current gender identity: Male Data Anesthesia Cardiac Studies: Echocardiogram 11/08/20 Echocardiogram Ultrasound 09/13/20 Transesophageal Echocardiogram 12/12/20
[2024-05-07 07:06] LABS: Glucose Point of Care 80 mg/dL (70-110)
--- NOTE | 2024-05-07 07:13 | W.PM.OPSUD ---
Surgery/Procedure H&P Update DATE OF PROCEDURE: May 07, 2024 DATE H&P PERFORMED: 05/06/24 H&P UPDATE INFORMATION: I have reviewed H&P completed within last 30 days, I have examined patient prior to procedure, No changes to prior documentation and H&P is in [facility] [place] EMR on date indicated PREOP DIAGNOSIS: Hip arthritis PLANNED PROCEDURE: Operation Date: 05/07/24 08:15 Proposed Procedures p Total Hip Arthroplasty(Left) - Adeline Paredes MD Related Problem List Diagnoses (1) Primary localized osteoarthritis of left hip:
[2024-05-07] MEDS: ceFAZolin 3,000 MG in sodium chloride 0.9% (plus) 100 ML 200 MG IV (07:58)
[2024-05-07] MEDS: tranexamic acid 1,000 mg/10mL SDV 1000 MG IV (08:46)
[2024-05-07] MEDS: BUPivacaine liposome 13.3 mg/mL SDV 20 mL 266 MG INFILTRATI (08:51)
[2024-05-07] MEDS: BUPivacaine 0.5% INJ 30 mL 20 ML XX (08:52)
[2024-05-07] MEDS: ceFAZolin 1,000 mg SDV 1000 MG IRRIGATION (08:53)
[2024-05-07] MEDS: VANCOMYCIN ADD-Vantage 1,000 MG VIAL 1000 MG XX (08:54)
--- NOTE | 2024-05-07 11:23 | XRR_ITS ---
PROCEDURE INFORMATION: Exam: XR Pelvis Exam date and time: 05/07/2024 11:24 AM Age: 78 years old Clinical indication: Device placement; Other: Left tsering; Prior surgery; Surgery date: Post-operative (0-2 days); Additional info: S/P left tsering, low ap pelvis TECHNIQUE: Imaging protocol: Radiologic exam of the pelvis. Views: 1 or 2 view. COMPARISON: CR XR hip LT 2-3V wo/w pel* [id number] 05/06/2024 7:43 AM FINDINGS: Bones/joints: A new left total hip arthroplasty projects in satisfactory position without complication. Soft tissues: Postoperative gas in the soft tissues. Vasculature: Vascular calcification. XR/XR pelvis 1-2V* [id number] IMPRESSION: New left total hip arthroplasty projects in satisfactory position without complication.
--- NOTE | 2024-05-07 12:08 | ANE.PACU2 ---
Inpatient post-anesthesia follow up: Airway intact: Yes Vital signs: Temperature 97.5 F Pulse Rate 60 Respiratory Rate 14 Blood Pressure 158/95 Pulse Oximetry 96 Oxygen Delivery Me thod Nasal Cannula Oxygen Flow Rate 3 Fraction of Inspir ed Oxygen Hydration adequate: Yes Nausea and vomiting: No Pain level: 1 Mental status: Baseline
[2024-05-07] MEDS: chlorhexidine gluconate 0.12% Btl 473 mL 30 ML MUCOUS MEM ×3 (12:48→20:43)
[2024-05-07] MEDS: oxyCODONE 5 mg IR Tab/Cap PO (12:48)
[2024-05-07] MEDS: amlodipine 10 mg Tablet PO (12:48)
[2024-05-07] MEDS: sodium chloride 0.9% 1,000 ML 100 ML IV (12:50)
[2024-05-07] MEDS: tranexamic acid 1,000 MG/100 ML PREMIX 600 MG IV (14:03)
[2024-05-07] MEDS: potassium chloride ER 20 mEq Tablet PO ×2 (14:04→20:43)
[2024-05-07] MEDS: gabapentin 300 mg Capsule 600 MG PO ×2 (14:04→20:43)
[2024-05-07 16:29] LABS: Glucose Point of Care 366 mg/dL (70-110)
[2024-05-07] MEDS: ceFAZolin 2,000 mg SDV 2000 MG IVP (16:35)
[2024-05-07] MEDS: chlorthalidone 25 mg Tablet 50 MG PO (16:36)
[2024-05-07] MEDS: metformin XR 500 MG Tablet 1000 MG PO (16:36)
[2024-05-07] MEDS: mupirocin oint 22 gm 1 APPLIC NASAL (16:36)
[2024-05-07] MEDS: CELEcoxib 200 mg Capsule PO (16:36)
[2024-05-07] MEDS: carvedilol 6.25 mg Tablet PO (16:37)
[2024-05-07] MEDS: atorvastatin 40 mg Tablet 20 MG PO (16:37)
[2024-05-07] MEDS: calcium carbonate 500 mg Chew Tablet 1000 MG PO (16:37)
[2024-05-07] MEDS: iron polysaccharide complex 150 mg Capsule PO (16:37)
[2024-05-07] MEDS: sennosides-docusate Tablet 2 TAB PO (16:38)
--- NOTE | 2024-05-07 16:53 | PM.OP ---
Operative Report Date of procedure: May 07, 2024 Pre-op diagnosis: Severe degenerative osteoarthritis left hip Post-op diagnosis: Severe degenerative osteoarthritis left hip Post-op findings: Severe degenerative osteoarthritis with osteophyte formation and osteopenia Procedure done: Left total hip arthroplasty Implants: The Sathish total hip system with a size 58 mm by F alpha code Trident II Tritanium acetabular shell with an MDM liner size 46 mm inner diameter by F alpha code.? A size 7 Accolade II 127? neck angle hip stem with a size 28 mm x +0 mm femoral head and a adventist MDM X3 insert size 28 mm x 46F Specimens removed/disposition: Bone, disposed of Pathology: None Surgeon: Adeline Paredes MD Finisher Tailor Apprentice: Ann Marie Da Silva, nurse practitioner, who services were required for positioning, exposure, manipulation, retraction, and closure Anesthesia: General (Intubated) Estimated blood loss (mL): 510 IV fluids (mL): 1,000 Urine output (mL): 500 Complications: None Findings: There was severe degenerative osteoarthritis with deformity of the femoral head. Complete denudement of cartilage on both the acetabular and femoral head sides. The hip was stable following replacement to toe hang and external rotation. Leg lengths appear to be restored. It was also stable to 90 degrees of flexion with 30 degrees of internal rotation and 20 degrees of adduction. Condition: stable Disposition: PACU (Then placement to floor under observation status for postoperative rehabilitation and pain management) Brief History: This 78-year-old gentleman presented to the office complaining of left hip pain. Imaging studies demonstrated severe degenerative osteoarthritis with collapse of the femoral head. After discussion, he had significant limitations in his activities of daily living. He wished to proceed with total hip arthroplasty. Risks and complications were discussed with him in the office. Consents were signed and questions were answered. Procedure: Patient was brought to the operating theater.? He was transferred to the operating room table and subsequently administered a general anesthesia, intubated.? Following administration of adequate anesthesia, the patient was placed in full lateral position and held in position with a pegboard.? The patient's left lower extremity was then prepped and draped in usual fashion utilizing DuraPrep.? It was draped free.? Following prepping and draping, a surgical pause was performed.? At the time of surgical pause, we identified the site and side of surgery.? We also identified the patient and preoperative surgical markings.?The patient's operative leg was compared to the opposite leg as a length comparison.? Confirmation was made of equipment availability.? Additionally, the patient's preoperative IV antibiotic, Ancef 2 g, and TXA administration was confirmed as well.? X-rays were also reviewed. Following the surgical pause, an incision was made centering over the patient's greater trochanter continuing proximally and distally as necessary to allow access to the hip joint.? Dissection continued through skin and soft tissues using a scalpel, and hemostasis was obtained using electrocautery. The tensor fascia jonathan was identified and incised longitudinally.? Sciatic nerve was identified and protected throughout the surgical procedure.? A Charnley U retractor was placed after the tensor fascia jonathan had been incised longitudinally, and the sciatic nerve had been identified.? The hip was internally rotated, and the piriformis muscle was identified and tagged. Piriformis muscle along with the remaining short external rotators were then incised from the posterior aspect of the hip joint.? These were retracted posteriorly.? The capsule was entered in a T-type fashion with the edges being tagged, and subsequently the hip was dislocated after removal of osteophytes posteriorly, inferiorly, and from the femoral head. The labrum was excised with further excision accomplished once the femoral head was removed.? Following hip dislocation, a femoral neck osteotomy was accomplished in the appropriate position.? The head was measured, but it was quite deformed.? We then evaluated the acetabulum. There were noted to be large osteophytes on the rim of the acetabulum and also along the femoral neck. The femur was retracted anteriorly.? Soft tissues were retracted, and the labrum was removed.? Osteotome was utilized to remove very large osteophytes posteriorly and inferiorly as well as anteriorly. We then began reaming.? Once the femoral head was removed, there was noted to be significant loss of cartilage over the head with the previously noted deformity and cartilage loss within the acetabulum.? We reamed to a size 57 to allow for a size 58 acetabular shell. Evaluation of the acetabular demonstrated that there was weakness of the inner rim of the acetabulum. Therefore, bone graft was placed, reverse reamed into position, and then the acetabulum was impacted into position.? The MDM liner was then impacted into position with care being taken to assure it seated appropriately. It was noted that the acetabulum matched the bony anatomy following osteophyte removal.? The cup was noted to seat nicely and had good fixation upon impact. Attention was directed to the proximal femur.? The proximal femur was lifted out of the wound.? A canal finder was passed after the box chisel.? The reamer was used to lateralize.? We then began broaching. We broached sequentially and had excellent fit and fill with the size 6 broach. Trial was accomplished with a +0 mm offset femoral head. It was not felt to be stable with this construct, and we increased to a size 7 broach. We then performed a trial reduction with a +0 mm offset as well as a +4 mm offset femoral head. It was felt that the +4 offset gave too much length, and made the hip too tight. Therefore, we chose the +0 mm offset femoral head which gave us the stability noted above, and leg lengths were felt to be equal. With the final construct as noted, we had the above-noted stabilities and appropriate leg length. Therefore, trial components were removed after the hip was dislocated. The size 7 Accolade II 127? neck angle stem was impacted into position without difficulty and onto this was placed a +0 mm x 28 mm femoral head which had been assembled into the MDM insert size 46F.? With a +0 mm femoral head, we had the above-noted stability.? The stem was noted to seat nicely prior to placement of the femoral head.? The wound was copiously irrigated with 20 mL of Betadine and 500 mL of normal saline mixed together.? Subsequently, we suctioned this out and irrigated the wound copiously with lactated Ringer's.? At this time, with all components in appropriate position, the hip was reduced.? Following reduction of the prosthesis once again, we confirmed the stability of the hip.? Leg lengths were also felt to be satisfactory. Being satisfied with the prosthesis, attention was directed to closure.? Closure was accomplished with 0 Vicryl in the capsular tissues.? Piriformis was reattached with 0 Vicryl as well.? Tensor fascia jonathan was closed with 0 Vicryl in an interrupted fashion.? The subcutaneous tissues were closed with 2-0 Monocryl interrupted.? Vancomycin powder and a Gelfoam thrombin mixture was placed into the wound as well.? The skin was closed with a running 3-0 Monocryl strata fix followed by Dermabond Gerardo and Tam. The patient was placed in an abduction pillow.? Patient was transferred off the operative bed and was brought to the recovery room in a satisfactory condition. He will be discharged to the floor for postoperative rehabilitation and pain management. There were no complications and no specimens. Related Problem List Diagnoses (1) Primary localized osteoarthritis of left hip:
[2024-05-07] MEDS: insulin lispro 100 unit/1 mL SUBCUT ×2 (18:11→21:49)
--- NOTE | 2024-05-07 18:57 | PC.NURSE ---
High glucose noted with dinner of 366. Notified Dr. Paredes. Low-dose SSI ordered and administered per order.
[2024-05-07 20:32] LABS: Glucose Point of Care 268 mg/dL (70-110)
[2024-05-07] MEDS: trazodone 100 mg Tablet PO (20:43)
[2024-05-08] VITALS (7 sets, daily range): BP systolic 108–120; BP diastolic 55–69; PULSE 59–69; RESP 16–18; TEMP 36.6–37; O2SAT 90–97
[2024-05-08] MEDS: oxyCODONE 5 mg IR Tab/Cap PO ×3 (00:02→13:53)
[2024-05-08] MEDS: ceFAZolin 2,000 mg SDV 2000 MG IVP ×2 (00:02→09:58)
[2024-05-08] MEDS: acetaminophen 1,000 MG/100 ML PIGGYBACK 400 MG IV ×2 (00:03→05:36)
[2024-05-08] MEDS: sodium chloride 0.9% 1,000 ML 100 ML IV ×2 (00:04→09:59)
[2024-05-08] MEDS: CELEcoxib 200 mg Capsule PO (05:35)
[2024-05-08 05:45] LABS: Basophils % 0.6 %; Eosinophils % 0.8 %; Hematocrit 29.5 % (37-53); Lymphocytes # 0.5 10^3/uL (0.8-4.8); Lymphocytes % 8.8 %; Mean Corpuscular HGB Conc 31.5 g/dL (30-55); Mean Corpuscular Hemoglobin 27.4 pg (27-33); Mean Platelet Volume 9.7 fL (7.4-10.4); Monocytes # 0.7 10^3/uL (0.2-0.9); Monocytes % 13.6 %; Neutrophils # 3.89 10^3/uL (1.8-7.7); Neutrophils % 75.8 %; Nucleated Red Blood Cells % 0 %; Platelet Count 160 10^3/cmm (157-399); Red Blood Count 3.39 10^6/uL (3.85-5.65); Red Cell Distribution Width 14.5 % (12.1-15.1); White Blood Count 5.13 10^3/uL (3.29-11.43)
[2024-05-08 06:08] LABS: Anion Gap 13.4 (5-19); Blood Urea Nitrogen 17 mg/dL (8-23); Calcium 8.1 mg/dL (8.5-10.5); Carbon Dioxide 29 mmol/L (22-29); Chloride 100 mmol/L (98-107); Creatinine Clr Calc Pharmacy 102.7573; Glucose 75 mg/dL (65-115); Osmolality Calculated 288 mOsm/kg (285-295); Potassium 3.4 mmol/L (3.5-5.1); Sodium 139 mmol/L (136-145)
[2024-05-08 08:23] LABS: Glucose Point of Care 108 mg/dL (70-110)
--- NOTE | 2024-05-08 09:26 | PC.CHAP ---
Pastoral Care Encounter/Spiritual Assessment Type of Contact [] Declined time signal wirer visit [] Patient/Family/Request visit [] Outpatient visit [] Follow-up visit [] Physician referral [] Code/Alert [] Routine visit [] Staff referral [] Actively dying [] Patient sleeping [] Family support [] [] Out of room [] Palliative care [] [X] Receiving care in room [] Pre-surgical visit [] Trauma [] Long length of stay [] ICU visit [] Other: Relational/Emotional Strength [] Patient feels connected with others/family/visitors/staff [] Distress [] Loneliness/isolation [] Abandonment Spirituality of Patient [] Person of Renetta [] Attends Scientologist of their Renetta [] Believes in Prayer [] Reads Bible or Sikh materials [] There are Spiritual issues to be addressed Business Continuity Manager Interventions [] Prayer [] Active listening [] Non-anxious presence [] Spiritual/emotional support [] Crisis/trauma care [] Spiritual counseling [] Bereavement support [] Provided bereavement packet [] Provided Bible/devotional materials [] Provided toy/stuffed animal, coloring book to patient or family member [] Provided Communion [] Anointing/[place] [] Salvation [] Completed spiritual assessment [] Other: Impact on Illness or Injury [] Angry [] Fearful [] Anxious [] Often cries [] Exhaustion [] Unable to work [] Unable to attend rastafari [] Unable to walk/stand [] Unable to read [] Unable to drive [] Unable to eat/drink [] Unable to sleep [] Unable to be with family [] Patient intubated [] Other: Summary Time spent with patient
[2024-05-08] MEDS: chlorthalidone 25 mg Tablet 50 MG PO (09:55)
[2024-05-08] MEDS: amlodipine 10 mg Tablet PO (09:55)
[2024-05-08] MEDS: metformin XR 500 MG Tablet 1000 MG PO (09:55)
[2024-05-08] MEDS: pioglitazone 30 mg Tablet PO (09:55)
[2024-05-08] MEDS: aspirin 325 mg EC Tablet PO (09:56)
[2024-05-08] MEDS: carvedilol 12.5 mg Tablet PO (09:56)
[2024-05-08] MEDS: losartan 50 mg Tablet 100 MG PO (09:56)
[2024-05-08] MEDS: gabapentin 300 mg Capsule 600 MG PO (09:56)
[2024-05-08] MEDS: omega-3 fatty acids 1,000 mg Capsule 1000 MG PO (09:56)
[2024-05-08] MEDS: potassium chloride ER 20 mEq Tablet PO (09:56)
[2024-05-08] MEDS: calcium carbonate 500 mg Chew Tablet 1000 MG PO (09:56)
[2024-05-08] MEDS: iron polysaccharide complex 150 mg Capsule PO (09:56)
[2024-05-08] MEDS: sennosides-docusate Tablet 2 TAB PO (09:57)
[2024-05-08] MEDS: cholecalciferol (vitamin D3) 1,000 unit Tablet 1000 UNIT PO (09:57)
[2024-05-08] MEDS: multivitamin therapeutic Tablet 1 TAB PO (09:57)
[2024-05-08] MEDS: sitagliptin 100 mg Tablet PO (09:57)
[2024-05-08] MEDS: chlorhexidine gluconate 0.12% Btl 473 mL 30 ML MUCOUS MEM ×2 (09:57→12:12)
[2024-05-08] MEDS: mupirocin oint 22 gm 1 APPLIC NASAL (09:58)
[2024-05-08 10:39] LABS: Glucose Point of Care 212 mg/dL (70-110)
[2024-05-08] MEDS: insulin lispro 100 unit/1 mL SUBCUT (12:11)
[2024-05-08] MEDS: ammonium lactate lotion 226 gm Btl 1 APPLIC TOPICAL (12:11)
--- NOTE | 2024-05-08 12:13 | PC.NURSE ---
Pt takes out hand IV stating, I was tired of waiting on the doctor and you all to do it. Refuses to have another IV placed.
--- NOTE | 2024-05-08 13:23 | PM.DCS ---
Discharge Providers Date of Admission: 05/07/24 10:37 Date of Discharge: May 08, 2024 Attending Provider at Admission: Adeline Paredes MD Attending Provider at Discharge: Adeline Paredes MD Primary Care Provider: Milana Kim MD Diagnoses at Discharge Discharge Diagnosis (1) Primary localized osteoarthritis of left hip: Status: Chronic (2) History of total left hip arthroplasty: Status: Acute Permanent problem details: Date of procedure: May 07, 2024 Diagnosis: Severe degenerative osteoarthritis left hip Procedure done: Left total hip arthroplasty Implants: The Birney total hip system with a size 58 mm by F alpha code Trident II Tritanium acetabular shell with an MDM liner size 46 mm inner diameter by F alpha code. A size 7 Accolade II 127? neck angle hip stem with a size 28 mm x +0 mm femoral head and a baptism MDM X3 insert size 28 mm x 46F Reason for Visit Reason for Visit: M16.12 Brief History: This 78-year-old gentleman presented to the office complaining of left hip pain. Imaging studies demonstrated severe degenerative osteoarthritis with collapse of the femoral head. After discussion, he had significant limitations in his activities of daily living. He wished to proceed with total hip arthroplasty. Risks and complications were discussed with him in the office. Consents were signed and questions were answered. Hospital Course Hospital Course This 78-year-old gentleman was admitted for same-day surgery in the form of left total hip arthroplasty. He tolerated the procedure well. He was admitted postoperatively for rehabilitation and pain management under observation status. On the first postoperative day, his pain was well-managed. He had no evidence of DVT or other complication. Therefore, he was felt safe to be discharged to home after working with physical therapy. He will have home therapies and return to follow-up in clinic as scheduled. Physical Exam Const: COMMON NORMALS: no acute distress, average body habitus, patient oriented x3 and alert GENERAL APPEARANCE: cooperative and comfortable ORIENTATION/CONSCIOUSNESS: Yes awake HENMT: COMMON NORMALS: normocephalic and atraumatic HEAD & SCALP: normocephalic and atraumatic Eye: GENERAL EYE: appearance normal, both eyes and all related structures Chest: COMMONS NORMALS: normal inspection of the chest Resp: COMMON NORMALS: normal respiratory effort EFFORT & INSPECTION: Yes able to speak in complete sentences and Yes symmetric chest movement Extremity: LEFT LOWER EXTREMITY: Yes hip joint (Dressing is dry and intact) Left hip: Yes inspection (No significant swelling or ecchymosis), Yes palpation (Nontender), Yes ROM (Not evaluated) and Yes neurovascular exam (Intact distally) Neuro: COMMON NORMALS: patient oriented x3 SENSORIUM/ORIENTATION: Yes alert Psych: COMMON NORMALS: mental status grossly normal APPEARANCE: Yes grossly normal ATTITUDE: Yes calm and Yes engaged ATTENTION/CONCENTRATION: Yes attention grossly intact Skin: COMMON NORMALS: no rashes or lesions noted GENERAL SKIN EXAM: no rashes or lesions noted Urinary Catheter Management: Teague: Cath Placed During This Visit: yes, but has since been removed by the nurse Reason for Continuing Indwelling Catheter: Decision to DC Catheter Urinary Catheter Date of Insertion: 05/07/24 Urinary Catheter Time of Insertion: 08:15 Date Urinary Catheter Removed: 05/07/24 Time Urinary Catheter Discontinued: 16:46 Discharge Data Studies Completed and Pending Completed Studies During Hospitalization Category Date Time Status XR pelvis 1-2V* [id number] Routine Exams 05/07/24 11:23 Completed Pending at discharge Category Date Time Status Complete Blood Count w/Auto AM LABS Lab 05/09/24 04:00 Ordered Complete Blood Count w/Auto AM LABS Lab 05/10/24 04:00 Ordered Radiology Impressions Pelvis X-Ray 05/07/24 11:23 IMPRESSION: New left total hip arthroplasty projects in satisfactory position without complication. Laboratory Results WBC 5.13 10^3/uL (3.29-11.43) 05/08/24 05:19 RBC 3.39 10^6/uL (3.85-5.65) L 05/08/24 05:19 Hgb 9.30 g/dL (11.27-16.99) L 05/08/24 05:19 Hct 29.5 % (37-53) L 05/08/24 05:19 MCV 87.0 fl (82-101) 05/08/24 05:19 MCH 27.4 pg (27-33) 05/08/24 05:19 MCHC 31.5 g/dL (30-55) 05/08/24 05:19 RDW 14.5 % (12.1-15.1) 05/08/24 05:19 Plt Count 160 10^3/cmm (157-399) 05/08/24 05:19 MPV 9.7 fL (7.4-10.4) 05/08/24 05:19 Neut % (Auto) 75.8 % 05/08/24 05:19 Lymph % (Auto) 8.8 % 05/08/24 05:19 [place] % (Auto) 13.6 % 05/08/24 05:19 Eos % (Auto) 0.8 % 05/08/24 05:19 Baso % (Auto) 0.6 % 05/08/24 05:19 Neut # (Auto) 3.89 10^3/uL (1.8-7.7) 05/08/24 05:19 Lymph # (Auto) 0.5 10^3/uL (0.8-4.8) L 05/08/24 05:19 [place] # (Auto) 0.7 10^3/uL (0.2-0.9) 05/08/24 05:19 Eos # (Auto) 0.0 10^3/uL (0.0-0.8) 05/08/24 05:19 Baso # (Auto) 0.0 10^3/uL (0.0-0.1) 05/08/24 05:19 Nucleated RBC % (auto) 0 % 05/08/24 05:19 Nucleated RBCs # 0.0 /100WBC 05/08/24 05:19 Sodium 139 mmol/L (136-145) 05/08/24 05:19 Potassium 3.4 mmol/L (3.5-5.1) L 05/08/24 05:19 Chloride 100 mmol/L (98-107) 05/08/24 05:19 Carbon Dioxide 29 mmol/L (22-29) 05/08/24 05:19 Anion Gap 13.4 (5-19) 05/08/24 05:19 BUN 17 mg/dL (8-23) 05/08/24 05:19 Creatinine 0.8 mg/dL (0.7-1.2) 05/08/24 05:19 GFR Calculation Not Reportable 05/08/24 05:19 Glucose 75 mg/dL (65-115) 05/08/24 05:19 POC Glucose 212 mg/dL (70-110) H 05/08/24 10:35 Calculated Osmolality 288 mOsm/kg (285-295) 05/08/24 05:19 Calcium 8.1 mg/dL (8.5-10.5) L 05/08/24 05:19 Vitals Last Vital Signs Temp 98.2 F 05/08/24 11:23 Pulse 69 05/08/24 11:23 Resp 18 05/08/24 11:23 BP 108/56 05/08/24 11:23 Pulse Ox 97 05/08/24 11:23 O2 Del Method Nasal Cannula 05/08/24 11:23 O2 Flow Rate 3.5 05/08/24 08:00 Discharge Plan Discharge Patient Disposition: Home Health Service Condition: Stable Prescriptions: New celecoxib 200 mg Capsule 200 mg PO 1XD 30 Days Qty: 30 0RF acetaminophen 500 mg Tablet 1,000 mg PO Q8H 15 Days Qty: 90 0RF aspirin 325 mg Tablet,Delayed Release (Dr/Ec) 325 mg PO DAILY 30 Days Qty: 30 0RF oxycodone 5 mg Tablet 5 - 10 mg PO Q4H PRN (Reason: Moderate To Severe Pain) 7 Days Qty: 40 0RF Continued chlorthalidone 50 mg tablet 50 mg PO BID Qty: 180 3RF carvedilol 12.5 mg tablet 12.5 mg PO DIRECTED Qty: 135 3RF Rx Instructions: 12.5mg in AM & 6.25mg in PM potassium chloride 20 mEq tablet extended release 20 meq PO TID metformin 500 mg tablet extended release 24 hr 1,000 mg PO BID docusate sodium 100 mg capsule 100 mg PO TID PRN (Reason: Constipation) empagliflozin 25 mg tablet 25 mg PO DAILY (DME) [place] Dressing 4 inch x 8 inch See Rx Instructions .Route .MEDSUPPLY Qty: 1 0RF Rx Instructions: As directed cyanocobalamin (vitamin B-12) 500 mcg tablet 500 mcg PO DAILY sitagliptin 100 mg tablet 100 mg PO DAILY pioglitazone 15 mg tablet 30 mg PO DAILY ammonium lactate 12 % cream 1 applic topical DAILY Qty: 385 2RF multivitamin [Multiple Vitamins] Tablet 1 tab PO DAILY atorvastatin 20 mg Tablet 20 mg PO QPM ketoconazole 2 % Shampoo See Rx Instructions .ROUTE .COMPLEX Rx Instructions: as directed pt states he usually uses every other day aspirin 81 mg Tablet,Delayed Release (Dr/Ec) 81 mg PO DAILY trazodone 100 mg Tablet 100 mg PO BEDTIME amlodipine [Norvasc] 10 mg Tablet 10 mg PO DAILY gabapentin 300 mg Capsule 600 mg PO TID losartan 100 mg Tablet 100 mg PO DAILY omega [id number]-fish oil [Fish Oil] 1,000 mg (120 mg-180 mg) Capsule 1 cap PO DAILY glipizide 10 mg tablet 10 mg PO BID meloxicam [Mobic] 15 mg tablet 15 mg PO DAILY Discharge Orders: Discharge Order (Routine); Ordered 05/08/24 Ordered By: Adeline Paredes Referrals: [facility] [Outside] Adeline Paredes MD [Physician] - 05/25/24 9:00 am Milana Kim MD [Primary Care Provider] - 05/11/24 11:30 am Discharge Diet: Advance as tolerated and Usual diet Discharge Activity: Increase activity as tolerated, Limit activity as instructed, Use walker/crutches as instructed and As per PT/OT instructions Patient Instructions: Oxycodone/Acetaminophen (By mouth), Aspirin (By mouth), Celecoxib (By mouth), Acute Wound Care (DC), Total Hip Replacement (GEN), Joint Replacement Stoplight, Opioid Safety, Post Anesthesia Care Activity Restrictions/Additional Instructions: Ice to left lower extremity. Posterior hip precautions. Weightbearing as tolerated. Advancement for gait training, ambulation, and strengthening per home PT. Keep dressing in place until it comes off on its own. You may shower, but do not soak your hip in water. If the dressing begins to leak. Please remove it. Follow-up as scheduled. Discharge Attestations Time Spent in Discharge Care*: greater than 30 min Specific Discharge Activities: educating patient, documenting/other paperwork and evaluating patient/reviewing data Quality Metrics Clinical Quality Measures [ No reported AMI, CVA or VTE this stay] Coding Level of Care Code Acute Code for Chg Fwd Diagnoses Primary localized osteoarthritis of left hip M16.12 History of total left hip arthroplasty Z96.642
== END 2024-05-08 14:53 | disposition home health service (06) ==
LOC: MEDSURG 10:38
PROVIDERS: Nurse Practitioner; Admitting Provider Specialist; PCP Family Medicine; Visit Provider Specialist
PROC: (CPT 27130; principal; 2024-05-07 08:05)
DX: M16.12 Unilateral primary osteoarthritis, left hip (principal); M25.752 Osteophyte, left hip; J44.9 Chronic obstructive pulmonary disease, unspecified; Z99.81 Dependence on supplemental oxygen; Z79.82 Long term (current) use of aspirin; E11.42 Type 2 diabetes mellitus with diabetic polyneuropathy; I10 Essential (primary) hypertension
CPT/HCPCS: 27130; 36415; 36416; 51702; 72170; 80048; 82962; 85025; 94660; 96372; 97116; 97161; 97165; 97530; C1776; C9290; G0378; J0131; J0330; J0690; J1100; J1171; J1815; J2405; J2704; J3010; J3370; J3490; J7030

== ENCOUNTER → 2024-05-25 08:28 | Outpatient (BNVA) | payer OTHER, SELFPAY | PROVIDERS: PCP Family Medicine; Visit Provider Nurse Practitioner | DX: Z96.642 Presence of left artificial hip joint (principal); M16.12 Unilateral primary osteoarthritis, left hip | CPT/HCPCS: 73502; 99024 ==

== ENCOUNTER → 2024-06-04 15:34 | Outpatient (BNVA) | payer MEDICARE, OTHER, SELFPAY | PROVIDERS: PCP Family Medicine; Visit Provider Orthopaedic Surgery | DX: M43.26 Fusion of spine, lumbar region (principal); M54.42 Lumbago with sciatica, left side; M54.41 Lumbago with sciatica, right side; G89.29 Other chronic pain | CPT/HCPCS: 72100; 99213 ==